=== PATIENT | female | born 1955 | race Caucasian/White ===

== ENCOUNTER 2019-07-15 09:09 | Emergency (ER) | payer OTHER ==
--- OUTSIDE RECORDS SUMMARY | 2019-07-15 09:15 | XMS REPORT ---
:1955 [facility] Address [address] [place] [address] Care Team Providers Name Role Phone WANDY PHOENIX Unavailable Unavailable PERNELL LEW Unavailable Unavailable Problems This patient has no known problems. Allergies, Adverse Reactions, Alerts This patient has no known allergies or adverse reactions. Medications This patient has no known medications. Encounters Start End Encounter Admission Attending Care Care Encounter Date/Time Date/Time Type Type Clinicians Facility Department ID 2017-10-14 2017-10-14 Outpatient [facility] [id number] 05:19:00 08:40:00 , WANDY Results Test Description Test Time Test Comments Text Results Atomic Results Result Comments BASIC METABOLIC PANEL 2017-10-14 06:46:00 Test Item Value Reference Range Comments GLUCOSE (test code=06D) 119 mg/dL 75-100 SODIUM (test code=01A) 138 mmol/L 136-145 POTASSIUM (test code=01B) 3.3 mmol/L 3.6-5.1 CHLORIDE (test code=04A) 103 mmol/L 98-107 CO2 (test code=02A) 26 mmol/L 22-32 ANION GAP (test code=ANG) 12.3 mmol/L BUN (test code=05D) 7 mg/dL 7-18 CREATININE (test code=03E) 0.8 mg/dL 0.4-1.1 BUN/CREA (test code=BCR) 9 12-20 CALCIUM (test code=09D) 9.3 mg/dL 8.3-9.5 MISCELLANEOUS LAB [id number] 07:56:00 Test Item Value Reference Range Comments SCAN RESULT (test gvhj=[id number]) BLOOD [id number] 10:00:00 Test Item Value Reference Range Comments CULTURE (BEAKER) (test fkwi=3886) No growth in 5 days BLOOD [id number] 10:00:00 Test Item Value Reference Range Comments CULTURE (BEAKER) (test wbjk=9629) No growth in 5 days SPUTUM CULTURE + GRAM [id number] 14:34:00 Test Item Value Reference Range Comments CULTURE (BEAKER) (test jvoz=1735) See comment GRAM STAIN RESULT (BEAKER) (test 4+ WBCs nyyi=3336) GRAM STAIN RESULT (BEAKER) (test 0-5 epithelial cells lhxr=330198) GRAM STAIN RESULT (BEAKER) (test No organisms seen tiee=257741) 2+ YeastNo Normal respiratory thais presentURINE [id number] 09:23:00 Test Item Value Reference Range Comments CULTURE (BEAKER) (test zlhm=6708) No growth BLOOD [id number] 17:00:00 Test Item Value Reference Range Comments CULTURE (BEAKER) (test xykj=2947) No growth in 5 days BLOOD [id number] 17:00:00 Test Item Value Reference Range Comments CULTURE (BEAKER) (test lvbl=0519) No growth in 5 days RAD, CHEST, 1 VIEW, NON [id number] 11:05:00Reason for exam:->FeverShould this be performed at the bedside?->YesFINAL REPORT Chest one view compared to August 30, 2017 Discussion: There is coarse interstitial prominence with patchy bilateral upper lung opacities overall similar to the prior study. Tracheostomy and right PICC line in place. No effusion or pneumothorax. IMPRESSIONS: No significant change [facility] Verified Date/Time: 09/02/2017 11:05:47 Reading Location: [facility] Radiology Reading Room [id number] 02:28:00 Test Item Value Reference Range Comments PHOSPHORUS (BEAKER) (test lehy=065) 3.7 mg/dL 2.3-4.7 [id number] 02:28:00 Test Item Value Reference Range Comments MAGNESIUM (BEAKER) (test bboh=261) 1.9 mg/dL 1.6-2.6 BASIC METABOLIC [id number] 02:28:00 Test Item Value Reference Range Comments SODIUM (BEAKER) (test 135 meq/L 136-145 hlik=720) POTASSIUM (BEAKER) (test 3.4 meq/L 3.5-5.1 tzow=623) CHLORIDE (BEAKER) (test 97 meq/L 98-107 zqha=292) CO2 (BEAKER) (test 26 meq/L 22-29 xeyj=568) BLOOD UREA NITROGEN 15 mg/dL 7-21 (BEAKER) (test mqga=876) CREATININE (BEAKER) (test 0.66 mg/dL 0.57-1.25 ixpk=106) GLUCOSE RANDOM (BEAKER) 104 mg/dL 70-105 (test bulw=549) CALCIUM (BEAKER) (test 8.7 mg/dL 8.4-10.2 usuv=142) EGFR (BEAKER) (test 91 mL/min/1.73 sq m ESTIMATED GFR IS NOT kgbo=9358) ACCURATE CREATININE CLEARANCE IN PREDICTING GLOMERULAR FILTRATION RATE. ESTIMATED GFR IS NOT APPLICABLE FOR DIALYSIS PATIENTS. URINALYSIS W/ [id number] 02:26:00 Test Item Value Reference Range Comments COLOR (BEAKER) (test rkef=912) Yellow CLARITY (BEAKER) (test pajh=760) Hazy SPECIFIC GRAVITY UA (BEAKER) (test 1.016 1.001-1.035 mqte=601) PH UA (BEAKER) (test zekm=971) 6.0 5.0-8.0 PROTEIN UA (BEAKER) (test mmra=980) 20 mg/dL Negative GLUCOSE UA (BEAKER) (test pwuh=259) Negative Negative KETONES UA (BEAKER) (test tmqf=047) 60 mg/dL Negative BILIRUBIN UA (BEAKER) (test Negative Negative uxjb=336) BLOOD UA (BEAKER) (test ucbm=857) Negative Negative NITRITE UA (BEAKER) (test vcni=091) Negative Negative LEUKOCYTE ESTERASE UA (BEAKER) Negative Negative (test orht=912) UROBILINOGEN UA (BEAKER) (test 0.2 mg/dL 0.2-1.0 cgfg=186) RBC UA (BEAKER) (test xome=602) 1 /HPF WBC UA (BEAKER) (test pbqr=779) 2 /HPF MUCUS (BEAKER) (test ldwi=7360) Rare SQUAMOUS EPITHELIAL (BEAKER) (test 1 /HPF ocih=460) HYALINE CASTS (BEAKER) (test 5 /LPF ghoy=919) AMORPHOUS CRYSTALS (BEAKER) (test Rare dghk=7896) SOURCE(BEAKER) (test izdo=8675) Urine, Straight Catheter BLOOD GAS, [id number] 02:16:00 Test Item Value Reference Range Comments PH ARTERIAL (BEAKER) (test cnbq=165) 7.47 7.35-7.45 PCO2 ARTERIAL (BEAKER) (test hlcf=228) 42 mmHg 35-45 PO2 ARTERIAL (BEAKER) (test ytxa=259) 266 mmHg 80-90 O2 SATURATION ARTERIAL (BEAKER) (test jifw=144) 99.7 % 96.0-97.0 HCO3 ARTERIAL (BEAKER) (test drwm=206) 29 mmol/L 21-29 BASE EXCESS ARTERIAL (BEAKER) (test apyd=559) 5.5 mmol/L -2.0-3.0 PATIENT TEMPERATURE (BEAKER) (test bgkb=2466) 38.6 C FIO2 (BEAKER) (test sbqk=2866) 40.0 % CBC W/PLT COUNT & AUTO [id number] 02:11:00 Test Item Value Reference Range Comments WHITE BLOOD CELL COUNT (BEAKER) (test sktj=926) 11.1 K/ L 3.5-10.5 RED BLOOD CELL COUNT (BEAKER) (test vlhl=216) 2.98 M/ L 3.93-5.22 HEMOGLOBIN (BEAKER) (test otif=887) 9.2 GM/DL 11.2-15.7 HEMATOCRIT (BEAKER) (test oyrb=008) 27.6 % 34.1-44.9 MEAN CORPUSCULAR VOLUME (BEAKER) (test uyjk=100) 92.6 fL 79.4-94.8 MEAN CORPUSCULAR HEMOGLOBIN (BEAKER) (test 30.9 pg 25.6-32.2 zoap=948) MEAN CORPUSCULAR HEMOGLOBIN CONC (BEAKER) (test 33.3 GM/DL 32.2-35.5 yffs=239) RED CELL DISTRIBUTION WIDTH (BEAKER) (test 13.8 % 11.7-14.4 pdmz=667) PLATELET COUNT (BEAKER) (test pmox=580) 348 K/CU MM 150-450 MEAN PLATELET VOLUME (BEAKER) (test wjxg=996) 9.9 fL 9.4-12.3 NUCLEATED RED BLOOD CELLS (BEAKER) (test 0 /100 WBC 0-0 shvk=712) NEUTROPHILS RELATIVE PERCENT (BEAKER) (test 77 % midx=234) LYMPHOCYTES RELATIVE PERCENT (BEAKER) (test 11 % pjtn=405) MONOCYTES RELATIVE PERCENT (BEAKER) (test 8 % oisu=228) EOSINOPHILS RELATIVE PERCENT (BEAKER) (test 3 % bjjf=488) BASOPHILS RELATIVE PERCENT (BEAKER) (test 0 % rvnl=586) NEUTROPHILS ABSOLUTE COUNT (BEAKER) (test 8.54 K/ L 1.56-6.13 gzha=194) LYMPHOCYTES ABSOLUTE COUNT (BEAKER) (test 1.19 K/ L 1.18-3.74 rxyz=283) MONOCYTES ABSOLUTE COUNT (BEAKER) (test 0.92 K/ L 0.24-0.36 zvpe=449) EOSINOPHILS ABSOLUTE COUNT (BEAKER) (test 0.33 K/ L 0.04-0.36 hgpm=474) BASOPHILS ABSOLUTE COUNT (BEAKER) (test 0.03 K/ L 0.01-0.08 xdin=558) IMMATURE GRANULOCYTES-RELATIVE PERCENT (BEAKER) 1 % 0-1 (test srhv=2228) MR, BRAIN, [id number] 16:32:00FINAL REPORT MRI Brain with and without contrast 09/01/2017 4:29 PM CLINICAL HISTORY: Decreased alertness, eval ischemia, WM disease TECHNIQUE: Multiplanar, multisequence MR imaging of the brain was performed, utilizing the following imaging sequences: Axial T1, T2, FLAIR, GRE, DWI/ADC; sagittal T1; postcontrast axial, sagittal, and coronal T1. COMPARISON: None available. FINDINGS: There is no acute infarct , mass, hematoma, hydrocephalus, extra-axial collection, or abnormal intracranial enhancement. 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 There are no brainstem or cerebellar lesions. Brain and corpus callosum volume are within normal limits for age. Normal appearing flow- voids are present within the major intracranial vascular structures. The sellar and pineal regions are normal. The craniovertebral junction is intact. The orbits, face, and skull base are without worrisome finding. IMPRESSION: 1. No acute intracranial abnormality.2. Mild chronic supratentorial white matter leukoencephalopathy. Signed: Tamir Truong Verified Date/Time: 09/01/2017 16:32:31 Reading Location: [facility] Radiology Reading Room MR, SPINE , CERVICAL, [id number] 16:31:00FINAL REPORT MRI of the cervical spine pre and postcontrast Comparison:None Reason for exam: C5/6 peripheral demyelination, previous radiculopathy Discussion: Sagittal andaxial multisequence MR imaging of the cervical spine was provided pre and post contrast. The study is degraded by motion even with multiple imaging attempts. While abnormalities may go undetected, gross findings are provided. The patient has undergone C6/7 level ACDF. There is no central canal or cordcompromise at any cervical level. Motion does partially obscure the cord on multiple sequences. There is however a gross assessment of the cervical cord using multiple T2-weighted sequences and multiple contrast-enhanced imaging attempts. While the most subtle foci of demyelinating disease may go undetected, the cord does have a grossly normal appearance with no convincing abnormal enhancement. Uncovertebral and facet arthrosis contribute to foraminal stenosis right greater than left C3/4, left greater than right C4/5, and probably mild bilaterally C5/6. Remaining visible foramina are patent. No concerning enhancement although again post contrast imaging is somewhat motion degraded. Normal bone marrow signal. Soft tissues are unremarkable. Impressions: There is some motion limitation but there is no convincing evidence of demyelinating disease. No central canal stenosis. Foraminal stenoses are detailed above and should be correlated with specific corresponding radiculopathy. Signed: Remington Sharp Verified Date/Time: 09/01/2017 16:31:36 Reading Location: [facility] B1 C013W Consult Reading Room URINE [id number] 10:49:00 Test Item Value Reference Range Comments CULTURE (BEAKER) (test wkmw=4004) No growth [id number] 04:02:00 Test Item Value Reference Range Comments PHOSPHORUS (BEAKER) (test fecb=680) 3.9 mg/dL 2.3-4.7 [id number] 04:02:00 Test Item Value Reference Range Comments MAGNESIUM (BEAKER) (test zllw=692) 1.9 mg/dL 1.6-2.6 BASIC METABOLIC [id number] 04:02:00 Test Item Value Reference Range Comments SODIUM (BEAKER) (test 141 meq/L 136-145 vtqs=866) POTASSIUM (BEAKER) (test 3.6 meq/L 3.5-5.1 ktck=324) CHLORIDE (BEAKER) (test 103 meq/L 98-107 szer=520) CO2 (BEAKER) (test 26 meq/L 22-29 adug=160) BLOOD UREA NITROGEN 16 mg/dL 7-21 (BEAKER) (test itjm=192) CREATININE (BEAKER) (test 0.61 mg/dL 0.57-1.25 nmtq=543) GLUCOSE RANDOM (BEAKER) 100 mg/dL 70-105 (test cvgz=655) CALCIUM (BEAKER) (test 8.4 mg/dL 8.4-10.2 xrgh=269) EGFR (BEAKER) (test 99 mL/min/1.73 sq m ESTIMATED GFR IS NOT ieqm=4904) ACCURATE CREATININE CLEARANCE IN PREDICTING GLOMERULAR FILTRATION RATE. ESTIMATED GFR IS NOT APPLICABLE FOR DIALYSIS PATIENTS. CBC W/PLT COUNT & AUTO [id number] 04:01:00 Test Item Value Reference Range Comments WHITE BLOOD CELL COUNT (BEAKER) (test tqcl=767) 11.7 K/ L 3.5-10.5 RED BLOOD CELL COUNT (BEAKER) (test lgxd=845) 2.85 M/ L 3.93-5.22 HEMOGLOBIN (BEAKER) (test xgzo=494) 8.4 GM/DL 11.2-15.7 HEMATOCRIT (BEAKER) (test pgnb=082) 26.2 % 34.1-44.9 MEAN CORPUSCULAR VOLUME (BEAKER) (test cpgm=269) 91.9 fL 79.4-94.8 MEAN CORPUSCULAR HEMOGLOBIN (BEAKER) (test 29.5 pg 25.6-32.2 deun=180) MEAN CORPUSCULAR HEMOGLOBIN CONC (BEAKER) (test 32.1 GM/DL 32.2-35.5 uynq=660) RED CELL DISTRIBUTION WIDTH (BEAKER) (test 14.1 % 11.7-14.4 dnpp=089) PLATELET COUNT (BEAKER) (test uhvg=765) 334 K/CU MM 150-450 MEAN PLATELET VOLUME (BEAKER) (test kupq=616) 10.6 fL 9.4-12.3 NUCLEATED RED BLOOD CELLS (BEAKER) (test 0 /100 WBC 0-0 ghib=298) NEUTROPHILS RELATIVE PERCENT (BEAKER) (test 77 % asni=246) LYMPHOCYTES RELATIVE PERCENT (BEAKER) (test 11 % vqsh=928) MONOCYTES RELATIVE PERCENT (BEAKER) (test 8 % zbqi=346) EOSINOPHILS RELATIVE PERCENT (BEAKER) (test 3 % nmkh=721) BASOPHILS RELATIVE PERCENT (BEAKER) (test 0 % lgjg=375) NEUTROPHILS ABSOLUTE COUNT (BEAKER) (test 8.99 K/ L 1.56-6.13 kzou=267) LYMPHOCYTES ABSOLUTE COUNT (BEAKER) (test 1.33 K/ L 1.18-3.74 nart=982) MONOCYTES ABSOLUTE COUNT (BEAKER) (test 0.96 K/ L 0.24-0.36 tycx=594) EOSINOPHILS ABSOLUTE COUNT (BEAKER) (test 0.29 K/ L 0.04-0.36 efzc=882) BASOPHILS ABSOLUTE COUNT (BEAKER) (test 0.04 K/ L 0.01-0.08 jbcs=062) IMMATURE GRANULOCYTES-RELATIVE PERCENT (BEAKER) 1 % 0-1 (test pzgy=1871) BLOOD [id number] 17:00:00 Test Item Value Reference Range Comments CULTURE (BEAKER) (test tfhz=1145) No growth in 5 days BLOOD [id number] 17:00:00 Test Item Value Reference Range Comments CULTURE (BEAKER) (test pcsj=5842) No growth in 5 days URINE PROTEIN ELECTROPHORESIS, [id number] 14:35:00 Test Item Value Reference Range Comments PROTEIN, URINE (BEAKER) (test 15 mg/dL 0-14 yrmu=3597) ALBUMIN URINE ELP (BEAKER) 20.8 % (test ueob=9518) GAMMA GLOBULIN URINE (BEAKER) 79.2 % (test ynvg=2508) UPEP, ID-438 (BEAKER) (test No monoclonal bands detected. cdff=0414) [id number] (BEAKER) Paola Hart MD (test qbrd=0601) (electronic signature) [id number] 12:35:00 Test Item Value Reference Range Comments POTASSIUM (BEAKER) (test zejv=017) 4.1 meq/L 3.5-5.1 [id number] 12:35:00 Test Item Value Reference Range Comments MAGNESIUM (BEAKER) (test tzik=990) 2.3 mg/dL 1.6-2.6 SPUTUM CULTURE + GRAM [id number] 08:50:00 Test Item Value Reference Range Comments CULTURE (BEAKER) (test 3+ Normal respiratory thais fivg=0753) present GRAM STAIN RESULT (BEAKER) 3+ WBCs (test xerb=0287) GRAM STAIN RESULT (BEAKER) 5-10 epithelial cells (test swkl=52016) GRAM STAIN RESULT (BEAKER) No organisms seen (test lxex=22706) [id number] 04:32:00 Test Item Value Reference Range Comments PHOSPHORUS (BEAKER) (test dmzc=584) 3.7 mg/dL 2.3-4.7 [id number] 04:32:00 Test Item Value Reference Range Comments MAGNESIUM (BEAKER) (test zxhu=678) 2.2 mg/dL 1.6-2.6 BASIC METABOLIC [id number] 04:32:00 Test Item Value Reference Range Comments SODIUM (BEAKER) (test 145 meq/L 136-145 mfvb=528) POTASSIUM (BEAKER) (test 3.8 meq/L 3.5-5.1 fktt=597) CHLORIDE (BEAKER) (test 109 meq/L 98-107 cbap=199) CO2 (BEAKER) (test 27 meq/L 22-29 jtbt=913) BLOOD UREA NITROGEN 17 mg/dL 7-21 (BEAKER) (test txue=497) CREATININE (BEAKER) (test 0.61 mg/dL 0.57-1.25 xvoe=572) GLUCOSE RANDOM (BEAKER) 117 mg/dL 70-105 (test ouyp=944) CALCIUM (BEAKER) (test 8.3 mg/dL 8.4-10.2 dykc=602) EGFR (BEAKER) (test 99 mL/min/1.73 sq m ESTIMATED GFR IS NOT udjj=6277) ACCURATE CREATININE CLEARANCE IN PREDICTING GLOMERULAR FILTRATION RATE. ESTIMATED GFR IS NOT APPLICABLE FOR DIALYSIS PATIENTS. CBC W/PLT COUNT & AUTO [id number] 04:01:00 Test Item Value Reference Range Comments WHITE BLOOD CELL COUNT (BEAKER) (test mkql=714) 12.1 K/ L 3.5-10.5 RED BLOOD CELL COUNT (BEAKER) (test nvun=581) 2.70 M/ L 3.93-5.22 HEMOGLOBIN (BEAKER) (test urzr=372) 8.1 GM/DL 11.2-15.7 HEMATOCRIT (BEAKER) (test rvjw=353) 25.5 % 34.1-44.9 MEAN CORPUSCULAR VOLUME (BEAKER) (test cxtz=408) 94.4 fL 79.4-94.8 MEAN CORPUSCULAR HEMOGLOBIN (BEAKER) (test 30.0 pg 25.6-32.2 sewl=576) MEAN CORPUSCULAR HEMOGLOBIN CONC (BEAKER) (test 31.8 GM/DL 32.2-35.5 kxoc=254) RED CELL DISTRIBUTION WIDTH (BEAKER) (test 14.6 % 11.7-14.4 arar=877) PLATELET COUNT (BEAKER) (test fwpz=688) 288 K/CU MM 150-450 MEAN PLATELET VOLUME (BEAKER) (test jptu=299) 10.7 fL 9.4-12.3 NUCLEATED RED BLOOD CELLS (BEAKER) (test 0 /100 WBC 0-0 krqo=433) NEUTROPHILS RELATIVE PERCENT (BEAKER) (test 76 % qtvy=031) LYMPHOCYTES RELATIVE PERCENT (BEAKER) (test 12 % xexb=459) MONOCYTES RELATIVE PERCENT (BEAKER) (test 9 % nnwi=381) EOSINOPHILS RELATIVE PERCENT (BEAKER) (test 2 % prmk=328) BASOPHILS RELATIVE PERCENT (BEAKER) (test 0 % udxb=970) NEUTROPHILS ABSOLUTE COUNT (BEAKER) (test 9.21 K/ L 1.56-6.13 fnqm=274) LYMPHOCYTES ABSOLUTE COUNT (BEAKER) (test 1.39 K/ L 1.18-3.74 sjnr=850) MONOCYTES ABSOLUTE COUNT (BEAKER) (test 1.14 K/ L 0.24-0.36 utbh=577) EOSINOPHILS ABSOLUTE COUNT (BEAKER) (test 0.27 K/ L 0.04-0.36 gtdo=719) BASOPHILS ABSOLUTE COUNT (BEAKER) (test 0.04 K/ L 0.01-0.08 nwmc=375) IMMATURE GRANULOCYTES-RELATIVE PERCENT (BEAKER) 1 % 0-1 (test aodh=7881) [id number] 16:42:00 Test Item Value Reference Range Comments POTASSIUM (BEAKER) (test hlhd=703) 4.2 meq/L 3.5-5.1 RAD, HIP, 2 VIEWS, [id number] 15:50:00Reason for exam:->right hip pain s /p fallFINAL REPORT COMPARISON: None TECHNIQUE: 2 views of the right hip. FINDINGS: There are no acute fractures or dislocations. No radiopaque foreign bodies. Joint spaces are maintained. No lytic or blastic lesions.. IMPRESSION: No acute bony abnormality. Signed: Naveen Jorge Verified Date/Time: 08/30/2017 15:50:19 Reading Location: [address] Transitional Reading Room [id number] 13:52:00 Test Item Value Reference Range Comments POTASSIUM (BEAKER) (test cqys=766) 3.4 meq/L 3.5-5.1 RAD, CHEST, 1 VIEW, NON [id number] 07:45:00Reason for exam:-> intubatedShould this be performed at the bedside?->YesFINAL REPORT Chest, one view. HISTORY: Intubated COMPARISON: 08/29/2017 IMPRESSION: Unchanged scattered bilateral interstitial opacities. Tracheostomy , feeding catheter, and right-sided PICC unchanged in position. Cardiomediastinal silhouette is unremarkable. No identifiable pneumothorax or pleural effusion. Signed: Fracisco Gray Verified Date/Time: 08/30/2017 07:45:44Reading Location: [address] Body Reading Room CBC W/PLT COUNT & AUTO [id number] 06:30:00 Test Item Value Reference Range Comments WHITE BLOOD CELL COUNT (BEAKER) (test lhtj=044) 14.7 K/ L 3.5-10.5 RED BLOOD CELL COUNT (BEAKER) (test eokm=309) 2.97 M/ L 3.93-5.22 HEMOGLOBIN (BEAKER) (test jesb=847) 8.6 GM/DL 11.2-15.7 HEMATOCRIT (BEAKER) (test wwve=681) 28.2 % 34.1-44.9 MEAN CORPUSCULAR VOLUME (BEAKER) (test clat=608) 94.9 fL 79.4-94.8 MEAN CORPUSCULAR HEMOGLOBIN (BEAKER) (test 29.0 pg 25.6-32.2 vcvo=741) MEAN CORPUSCULAR HEMOGLOBIN CONC (BEAKER) (test 30.5 GM/DL 32.2-35.5 nozu=112) RED CELL DISTRIBUTION WIDTH (BEAKER) (test 14.7 % 11.7-14.4 ywbo=678) PLATELET COUNT (BEAKER) (test wkor=193) 331 K/CU MM 150-450 MEAN PLATELET VOLUME (BEAKER) (test hudm=337) 10.3 fL 9.4-12.3 NUCLEATED RED BLOOD CELLS (BEAKER) (test 0 /100 WBC 0-0 uowm=901) NEUTROPHILS RELATIVE PERCENT (BEAKER) (test 75 % dbgf=032) LYMPHOCYTES RELATIVE PERCENT (BEAKER) (test 10 % mnlf=222) MONOCYTES RELATIVE PERCENT (BEAKER) (test 10 % aqgb=670) EOSINOPHILS RELATIVE PERCENT (BEAKER) (test 3 % rfni=001) BASOPHILS RELATIVE PERCENT (BEAKER) (test 0 % hhpn=290) NEUTROPHILS ABSOLUTE COUNT (BEAKER) (test 11.05 K/ L 1.56-6.13 qjpw=463) LYMPHOCYTES ABSOLUTE COUNT (BEAKER) (test 1.52 K/ L 1.18-3.74 wxwu=891) MONOCYTES ABSOLUTE COUNT (BEAKER) (test 1.45 K/ L 0.24-0.36 nojt=082) EOSINOPHILS ABSOLUTE COUNT (BEAKER) (test 0.39 K/ L 0.04-0.36 cuxz=636) BASOPHILS ABSOLUTE COUNT (BEAKER) (test 0.05 K/ L 0.01-0.08 kcub=100) IMMATURE GRANULOCYTES-RELATIVE PERCENT (BEAKER) 2 % 0-1 (test iziw=0956) [id number] 05:53:00 Test Item Value Reference Range Comments POTASSIUM (BEAKER) (test uwdg=731) 3.7 meq/L 3.5-5.1 [id number] 05:53:00 Test Item Value Reference Range Comments MAGNESIUM (BEAKER) (test akwh=704) 1.9 mg/dL 1.6-2.6 [id number] 05:53:00 Test Item Value Reference Range Comments PHOSPHORUS (BEAKER) (test gumq=071) 3.2 mg/dL 2.3-4.7 BASIC METABOLIC [id number] 05:53:00 Test Item Value Reference Range Comments SODIUM (BEAKER) (test 151 meq/L 136-145 qlru=041) POTASSIUM (BEAKER) (test 3.7 meq/L 3.5-5.1 zamj=210) CHLORIDE (BEAKER) (test 115 meq/L 98-107 boej=621) CO2 (BEAKER) (test 27 meq/L 22-29 tugj=338) BLOOD UREA NITROGEN 16 mg/dL 7-21 (BEAKER) (test wseg=183) CREATININE (BEAKER) (test 0.58 mg/dL 0.57-1.25 khoq=558) GLUCOSE RANDOM (BEAKER) 137 mg/dL 70-105 (test itur=772) CALCIUM (BEAKER) (test 8.7 mg/dL 8.4-10.2 vhjm=276) EGFR (BEAKER) (test 105 mL/min/1.73 sq m ESTIMATED GFR IS NOT vmpy=2557) ACCURATE CREATININE CLEARANCE IN PREDICTING GLOMERULAR FILTRATION RATE. ESTIMATED GFR IS NOT APPLICABLE FOR DIALYSIS PATIENTS. [id number] 10:39:00 Test Item Value Reference Range Comments POTASSIUM (BEAKER) (test sotm=542) 3.9 meq/L 3.5-5.1 RAD, CHEST, 1 VIEW, NON [id number] 08:43:00Reason for exam:-> intubatedShould this be performed at the bedside?->YesFINAL REPORT Comparison: 08/28/2017 TECHNIQUE: Single view of the chest FINDINGS: Bilateral interstitial and airspace opacities are stable. No gross new lung parenchymal changes. Support lines and tubes are stable. IMPRESSION:. No significant interval change. Signed: Edgar Jorge Verified Date/Time: 08/29/2017 08:43:22 Reading Location: [place] [id number] CT Body Reading Room CBC W/PLT COUNT & AUTO [id number] 05:48:00 Test Item Value Reference Range Comments WHITE BLOOD CELL COUNT (BEAKER) (test suzt=702) 13.7 K/ L 3.5-10.5 RED BLOOD CELL COUNT (BEAKER) (test npbg=446) 2.78 M/ L 3.93-5.22 HEMOGLOBIN (BEAKER) (test tdvh=625) 8.2 GM/DL 11.2-15.7 HEMATOCRIT (BEAKER) (test gzdx=510) 26.5 % 34.1-44.9 MEAN CORPUSCULAR VOLUME (BEAKER) (test hbwb=101) 95.3 fL 79.4-94.8 MEAN CORPUSCULAR HEMOGLOBIN (BEAKER) (test 29.5 pg 25.6-32.2 flmk=954) MEAN CORPUSCULAR HEMOGLOBIN CONC (BEAKER) (test 30.9 GM/DL 32.2-35.5 ldva=559) RED CELL DISTRIBUTION WIDTH (BEAKER) (test 14.2 % 11.7-14.4 hqbk=535) PLATELET COUNT (BEAKER) (test szuf=715) 262 K/CU MM 150-450 MEAN PLATELET VOLUME (BEAKER) (test pkso=497) 10.2 fL 9.4-12.3 NUCLEATED RED BLOOD CELLS (BEAKER) (test 0 /100 WBC 0-0 xwzt=768) NEUTROPHILS RELATIVE PERCENT (BEAKER) (test 76 % pzhs=054) LYMPHOCYTES RELATIVE PERCENT (BEAKER) (test 12 % ngnp=644) MONOCYTES RELATIVE PERCENT (BEAKER) (test 8 % ebli=828) EOSINOPHILS RELATIVE PERCENT (BEAKER) (test 2 % bbyn=873) BASOPHILS RELATIVE PERCENT (BEAKER) (test 0 % mfzt=122) NEUTROPHILS ABSOLUTE COUNT (BEAKER) (test 10.42 K/ L 1.56-6.13 vfpe=128) LYMPHOCYTES ABSOLUTE COUNT (BEAKER) (test 1.59 K/ L 1.18-3.74 fedy=255) MONOCYTES ABSOLUTE COUNT (BEAKER) (test 1.15 K/ L 0.24-0.36 gcwg=263) EOSINOPHILS ABSOLUTE COUNT (BEAKER) (test 0.24 K/ L 0.04-0.36 mvwp=452) BASOPHILS ABSOLUTE COUNT (BEAKER) (test 0.02 K/ L 0.01-0.08 gttg=312) IMMATURE GRANULOCYTES-RELATIVE PERCENT (BEAKER) 2 % 0-1 (test plvu=6866) BASIC METABOLIC [id number] 05:33:00 Test Item Value Reference Range Comments SODIUM (BEAKER) (test 153 meq/L 136-145 uhth=376) POTASSIUM (BEAKER) (test 3.8 meq/L 3.5-5.1 nokm=421) CHLORIDE (BEAKER) (test 120 meq/L 98-107 lwsd=622) CO2 (BEAKER) (test 26 meq/L 22-29 qtnp=587) BLOOD UREA NITROGEN 17 mg/dL 7-21 (BEAKER) (test tfxv=359) CREATININE (BEAKER) (test 0.58 mg/dL 0.57-1.25 hclk=607) GLUCOSE RANDOM (BEAKER) 156 mg/dL 70-105 (test owch=840) CALCIUM (BEAKER) (test 8.3 mg/dL 8.4-10.2 piph=071) EGFR (BEAKER) (test 105 mL/min/1.73 sq m ESTIMATED GFR IS NOT zzoc=4439) ACCURATE CREATININE CLEARANCE IN PREDICTING GLOMERULAR FILTRATION RATE. ESTIMATED GFR IS NOT APPLICABLE FOR DIALYSIS PATIENTS. [id number] 05:32:00 Test Item Value Reference Range Comments PHOSPHORUS (BEAKER) (test omin=927) 2.3 mg/dL 2.3-4.7 [id number] 05:32:00 Test Item Value Reference Range Comments MAGNESIUM (BEAKER) (test gnmw=758) 2.0 mg/dL 1.6-2.6 [id number] 00:50:00 Test Item Value Reference Range Comments POTASSIUM (BEAKER) (test yecm=894) 3.8 meq/L 3.5-5.1 [id number] 00:50:00 Test Item Value Reference Range Comments SODIUM (BEAKER) (test gubn=920) 149 meq/L 136-145 [id number] 19:17:00 Test Item Value Reference Range Comments POTASSIUM (BEAKER) (test vchx=269) 3.4 meq/L 3.5-5.1 [id number] 19:17:00 Test Item Value Reference Range Comments SODIUM (BEAKER) (test ukjo=697) 143 meq/L 136-145 [id number] 15:23:00 Test Item Value Reference Range Comments POTASSIUM (BEAKER) (test xnoo=775) 3.9 meq/L 3.5-5.1 [id number] 15:23:00 Test Item Value Reference Range Comments SODIUM (BEAKER) (test binf=136) 143 meq/L 136-145 PROTEIN ELECTROPHORESIS, [id number] 14:05:00 Test Item Value Reference Range Comments ALBUMIN FRACTION (BEAKER) 2.1 g/dL 3.5-5.5 (test jpfw=256) ALPHA 1 FRACTION (BEAKER) 0.5 g/dL 0.2-0.4 (test pyaz=469) ALPHA 2 FRACTION (BEAKER) 1.1 g/dL 0.5-0.9 (test rofn=598) BETA FRACTION (BEAKER) (test 1.0 g/dL 0.6-1.1 jdai=094) GAMMA GLOBULIN FRACTION 0.7 g/dL 0.7-1.7 (BEAKER) (test jbal=409) INTERPRETATION-119 (BEAKER) Pattern consistent with acute (test spzg=9092) inflammatory process. No monoclonal bands detected. [id number] Paola Hart MD (BEAKER) (test xffv=2749) (electronic signature) PROTEIN TOTAL SERUM, SPEP 5.3 gm/dL 6.0-8.3 (BEAKER) (test rcmz=6569) CSF CULTURE + GRAM [id number] 12:34:00 Test Item Value Reference Range Comments CULTURE (BEAKER) (test wjlq=0061) No growth GRAM STAIN RESULT (BEAKER) (test <1+ WBCs xffk=7389) GRAM STAIN RESULT (BEAKER) (test No organisms seen phez=14150) URINE [id number] 11:40:00 Test Item Value Reference Range Comments CULTURE (BEAKER) (test >100,000 col/mL Lesly albicans htja=5916) SPUTUM CULTURE + GRAM [id number] 09:07:00 Test Item Value Reference Range Comments CULTURE (BEAKER) (test ifxa=6204) See comment GRAM STAIN RESULT (BEAKER) (test 1+ WBCs lmnn=1107) GRAM STAIN RESULT (BEAKER) (test No organisms seen botm=[id number]) GRAM STAIN RESULT (BEAKER) (test 0-5 epithelial cells fxpd=030027) <1+ YeastNo Normal respiratory thais presentRAD, CHEST, 1 VIEW, NON [id number] 07:39:00Reason for exam:->intubatedShould this be performed at the bedside?->YesFINAL REPORT Chest one view AP 08/28/2017 7 :38 AM CLINICAL INDICATION: intubated COMPARISON: 08/27/2017 IMPRESSION: The endotracheal tube has been replaced with a tracheostomy. Remaining support hardware is unchanged in position. Cardiomediastinal contours are stable. The central pulmonary vasculature is not engorged. Symmetric coarse bilateral pulmonary opacities are unchanged. Signed: Tamir Truong Verified Date/Time: 08/28/2017 07:39:17 Reading Location: [facility] Radiology Reading Room BLOOD GAS, [id number] 06:19:00 Test Item Value Reference Range Comments PH ARTERIAL (BEAKER) (test lcil=712) 7.42 7.35-7.45 PCO2 ARTERIAL (BEAKER) (test mrwn=987) 44 mmHg 35-45 PO2 ARTERIAL (BEAKER) (test mdya=657) 143 mmHg 80-90 O2 SATURATION ARTERIAL (BEAKER) (test woqz=088) 98.8 % 96.0-97.0 HCO3 ARTERIAL (BEAKER) (test esjw=671) 28 mmol/L 21-29 BASE EXCESS ARTERIAL (BEAKER) (test qays=900) 3.3 mmol/L -2.0-3.0 PATIENT TEMPERATURE (BEAKER) (test kwtd=3269) 37.8 C FIO2 (BEAKER) (test nnzw=2701) 40.0 % CBC W/PLT COUNT & AUTO [id number] 05:58:00 Test Item Value Reference Range Comments WHITE BLOOD CELL COUNT (BEAKER) (test gysc=708) 13.5 K/ L 3.5-10.5 RED BLOOD CELL COUNT (BEAKER) (test ksza=751) 3.15 M/ L 3.93-5.22 HEMOGLOBIN (BEAKER) (test wohi=554) 9.3 GM/DL 11.2-15.7 HEMATOCRIT (BEAKER) (test kyku=931) 29.2 % 34.1-44.9 MEAN CORPUSCULAR VOLUME (BEAKER) (test cqen=325) 92.7 fL 79.4-94.8 MEAN CORPUSCULAR HEMOGLOBIN (BEAKER) (test 29.5 pg 25.6-32.2 ocdt=946) MEAN CORPUSCULAR HEMOGLOBIN CONC (BEAKER) (test 31.8 GM/DL 32.2-35.5 hsps=709) RED CELL DISTRIBUTION WIDTH (BEAKER) (test 14.3 % 11.7-14.4 mzcj=510) PLATELET COUNT (BEAKER) (test ldgs=655) 248 K/CU MM 150-450 MEAN PLATELET VOLUME (BEAKER) (test awre=439) 11.0 fL 9.4-12.3 NUCLEATED RED BLOOD CELLS (BEAKER) (test 0 /100 WBC 0-0 ljze=409) NEUTROPHILS RELATIVE PERCENT (BEAKER) (test 78 % ayvd=314) LYMPHOCYTES RELATIVE PERCENT (BEAKER) (test 10 % bnmh=228) MONOCYTES RELATIVE PERCENT (BEAKER) (test 8 % spmg=643) EOSINOPHILS RELATIVE PERCENT (BEAKER) (test 2 % ywjj=914) BASOPHILS RELATIVE PERCENT (BEAKER) (test 0 % nayb=791) NEUTROPHILS ABSOLUTE COUNT (BEAKER) (test 10.54 K/ L 1.56-6.13 shoa=978) LYMPHOCYTES ABSOLUTE COUNT (BEAKER) (test 1.31 K/ L 1.18-3.74 gyil=955) MONOCYTES ABSOLUTE COUNT (BEAKER) (test 1.03 K/ L 0.24-0.36 sjkp=448) EOSINOPHILS ABSOLUTE COUNT (BEAKER) (test 0.26 K/ L 0.04-0.36 ihzt=409) BASOPHILS ABSOLUTE COUNT (BEAKER) (test 0.04 K/ L 0.01-0.08 nfka=157) IMMATURE GRANULOCYTES-RELATIVE PERCENT (BEAKER) 2 % 0-1 (test ohnb=4114) [id number] 05:50:00 Test Item Value Reference Range Comments PHOSPHORUS (BEAKER) (test fjbp=896) 3.1 mg/dL 2.3-4.7 [id number] 05:50:00 Test Item Value Reference Range Comments MAGNESIUM (BEAKER) (test ubqv=965) 2.0 mg/dL 1.6-2.6 BASIC METABOLIC [id number] 05:50:00 Test Item Value Reference Range Comments SODIUM (BEAKER) (test 140 meq/L 136-145 czql=807) POTASSIUM (BEAKER) (test 4.1 meq/L 3.5-5.1 oqmu=006) CHLORIDE (BEAKER) (test 107 meq/L 98-107 xgxw=991) CO2 (BEAKER) (test 25 meq/L 22-29 gnti=681) BLOOD UREA NITROGEN 17 mg/dL 7-21 (BEAKER) (test kdfd=752) CREATININE (BEAKER) (test 0.57 mg/dL 0.57-1.25 ijvb=850) GLUCOSE RANDOM (BEAKER) 123 mg/dL 70-105 (test mztm=450) CALCIUM (BEAKER) (test 8.4 mg/dL 8.4-10.2 ifnx=050) EGFR (BEAKER) (test 107 mL/min/1.73 sq m ESTIMATED GFR IS NOT iyct=7825) ACCURATE CREATININE CLEARANCE IN PREDICTING GLOMERULAR FILTRATION RATE. ESTIMATED GFR IS NOT APPLICABLE FOR DIALYSIS PATIENTS. BLOOD [id number] 05:01:00 Test Item Value Reference Range Comments CULTURE (BEAKER) (test jujy=2724) No growth in 5 days BLOOD [id number] 23:00:00 Test Item Value Reference Range Comments CULTURE (BEAKER) (test pzco=5413) No growth in 5 days [id number] 22:09:00 Test Item Value Reference Range Comments POTASSIUM (BEAKER) (test ycie=584) 3.9 meq/L 3.5-5.1 [id number] 22:09:00 Test Item Value Reference Range Comments SODIUM (BEAKER) (test jsur=410) 139 meq/L 136-145 [id number] 16:37:00 Test Item Value Reference Range Comments SODIUM (BEAKER) (test hwsh=747) 139 meq/L 136-145 [id number] 12:42:00 Test Item Value Reference Range Comments POTASSIUM (BEAKER) (test uinw=508) 3.7 meq/L 3.5-5.1 CARDIOLIPIN ANTIBODIES, IGG AND [id number] 11:00:00 Test Item Value Reference Range Comments ANTICARDIOLIPIN IGG ANTIBODY (BEAKER) (test < GPL rjpi=716) ANTICARDIOLIPIN IGM ANTIBODY (BEAKER) (test 0.2 MPL thmq=954) Anticardiolipin IgG Result Interpretation:NEG: <20 GPL; U/mlPOS: >/=20 GPL; U/mlAnticardiolipin IgM Result Interpretation:NEG: <20 MPL; U/mlPOS: >/=20 MPL; U/mlDOUBLE-STRANDED DNA (DSDNA) [id number] 08:14:00 Test Item Value Reference Range Comments ANTI-DNA DS (BEAKER) (test fxws=6091) Negative ANTI-NUCLEAR ANTIBODY ([place])2017-08-27 08:13:00 Test Item Value Reference Range Comments ANTI-NUCLEAR ANTIBODY ([place]) (BEAKER) (test Negative Negative pqpd=069) RAD, CHEST, 1 VIEW, NON [id number] 07:41:00Reason for exam:-> intubatedShould this be performed at the bedside?->YesFINAL REPORT Chest one view AP 08/27/2017 7:41 AM CLINICAL INDICATION: intubated COMPARISON: 08/26/2017 IMPRESSION: Support hardware is unchanged in position. Cardiomediastinal contours are stable. There is central pulmonary vasculature congestion with mild peripheral edema. Superimposed patchy opacities in both upper lungs are unchanged. Signed: Tamir Truong Verified Date/Time: 08/27/2017 07:41:23 Reading Location: [facility] Radiology Reading Room [id number] 05:19:00 Test Item Value Reference Range Comments MAGNESIUM (BEAKER) (test 2.3 mg/dL 1.6-2.6 Specimen slightly hemolyzed efxr=295) [id number] 05:19:00 Test Item Value Reference Range Comments PHOSPHORUS (BEAKER) (test 3.2 mg/dL 2.3-4.7 Specimen slightly hemolyzed gbkw=631) BASIC METABOLIC [id number] 05:19:00 Test Item Value Reference Range Comments SODIUM (BEAKER) (test 130 meq/L 136-145 kpuf=806) POTASSIUM (BEAKER) (test 4.0 meq/L 3.5-5.1 Specimen slightly hfna=716) hemolyzed CHLORIDE (BEAKER) (test 94 meq/L 98-107 ijwl=104) CO2 (BEAKER) (test 26 meq/L 22-29 rkxz=910) BLOOD UREA NITROGEN 18 mg/dL 7-21 (BEAKER) (test ebqx=167) CREATININE (BEAKER) (test 0.58 mg/dL 0.57-1.25 Specimen slightly bztx=109) hemolyzed GLUCOSE RANDOM (BEAKER) 111 mg/dL 70-105 (test ffuz=048) CALCIUM (BEAKER) (test 8.7 mg/dL 8.4-10.2 kpxh=251) EGFR (BEAKER) (test 105 mL/min/1.73 sq m ESTIMATED GFR IS NOT rzmn=1702) ACCURATE CREATININE CLEARANCE IN PREDICTING GLOMERULAR FILTRATION RATE. ESTIMATED GFR IS NOT APPLICABLE FOR DIALYSIS PATIENTS. CBC W/PLT COUNT & AUTO [id number] 05:05:00 Test Item Value Reference Range Comments WHITE BLOOD CELL COUNT (BEAKER) (test yhjv=448) 13.3 K/ L 3.5-10.5 RED BLOOD CELL COUNT (BEAKER) (test iabz=685) 3.36 M/ L 3.93-5.22 HEMOGLOBIN (BEAKER) (test iqgh=312) 10.3 GM/DL 11.2-15.7 HEMATOCRIT (BEAKER) (test fkvb=965) 30.6 % 34.1-44.9 MEAN CORPUSCULAR VOLUME (BEAKER) (test uzzj=188) 91.1 fL 79.4-94.8 MEAN CORPUSCULAR HEMOGLOBIN (BEAKER) (test 30.7 pg 25.6-32.2 jsne=873) MEAN CORPUSCULAR HEMOGLOBIN CONC (BEAKER) (test 33.7 GM/DL 32.2-35.5 nyjx=019) RED CELL DISTRIBUTION WIDTH (BEAKER) (test 13.9 % 11.7-14.4 jcxz=619) PLATELET COUNT (BEAKER) (test pewg=285) 230 K/CU MM 150-450 MEAN PLATELET VOLUME (BEAKER) (test pnlc=925) 11.6 fL 9.4-12.3 NUCLEATED RED BLOOD CELLS (BEAKER) (test 0 /100 WBC 0-0 prsu=744) NEUTROPHILS RELATIVE PERCENT (BEAKER) (test 74 % nzxo=656) LYMPHOCYTES RELATIVE PERCENT (BEAKER) (test 13 % wrml=648) MONOCYTES RELATIVE PERCENT (BEAKER) (test 8 % cemg=834) EOSINOPHILS RELATIVE PERCENT (BEAKER) (test 1 % jxsq=202) BASOPHILS RELATIVE PERCENT (BEAKER) (test 0 % fwpl=318) NEUTROPHILS ABSOLUTE COUNT (BEAKER) (test 9.79 K/ L 1.56-6.13 mbtc=718) LYMPHOCYTES ABSOLUTE COUNT (BEAKER) (test 1.72 K/ L 1.18-3.74 gnqm=044) MONOCYTES ABSOLUTE COUNT (BEAKER) (test 1.01 K/ L 0.24-0.36 rbjp=407) EOSINOPHILS ABSOLUTE COUNT (BEAKER) (test 0.19 K/ L 0.04-0.36 rltq=541) BASOPHILS ABSOLUTE COUNT (BEAKER) (test 0.03 K/ L 0.01-0.08 qleo=905) IMMATURE GRANULOCYTES-RELATIVE PERCENT (BEAKER) 4 % 0-1 (test spnd=6897) BLOOD GAS, [id number] 04:44:00 Test Item Value Reference Range Comments PH ARTERIAL (BEAKER) (test zdmh=432) 7.52 7.35-7.45 PCO2 ARTERIAL (BEAKER) (test pgbt=251) 41 mmHg 35-45 PO2 ARTERIAL (BEAKER) (test tirj=667) 124 mmHg 80-90 O2 SATURATION ARTERIAL (BEAKER) (test juiq=129) 98.7 % 96.0-97.0 HCO3 ARTERIAL (BEAKER) (test phgo=926) 32 mmol/L 21-29 BASE EXCESS ARTERIAL (BEAKER) (test puzk=604) 8.7 mmol/L -2.0-3.0 PATIENT TEMPERATURE (BEAKER) (test pajw=2791) 37.1 C FIO2 (BEAKER) (test kupb=2309) 40.0 % HEPATITIS C PCR, [id number] 15:25:00 Test Item Value Reference Range Comments HCV RESULT COMPONENT (BEAKER) HCV RNA not detected HCV RNA not detected (test ueqq=8392) This test uses a Real-Time Polymerase Chain Reaction (RT-PCR) methodology and was performed using SOFIA Ampliprep/SOFIA TaqMan HCV test kit version 2.0 ( [employer]).Reportable range for this assay is 15 - 100,000, 000 IU per mL (1.18 - 8.00 Log IU/mL).HEPATITIS B PCR, [id number] 13 :41:00 Test Item Value Reference Range Comments HBV RESULT COMPONENT (BEAKER) HBV DNA not detected HBV DNA not detected (test pgtf=6468) This test uses a Real-Time Polymerase Chain Reaction (RT-PCR) methodology and was performed using SOFIA AmpliPrep/SOFIA TaqMan HBV Test, v2.0 ([employer]Reportable range for this assay is 20 - 170,000,000 IU per mL (1.30 - 8.23 Log IU/mL).HEMOGLOBIN [id number] 13:34:00 Test Item Value Reference Range Comments HEMOGLOBIN A1C (BEAKER) (test xhxe=980) 5.6 % 4.3-6.1 URINALYSIS W/ [id number] 10:57:00 Test Item Value Reference Range Comments COLOR (BEAKER) (test rchm=981) Yellow CLARITY (BEAKER) (test ngkt=341) Hazy SPECIFIC GRAVITY UA (BEAKER) (test fljk=402) 1.025 1.001-1.035 PH UA (BEAKER) (test frzc=338) 6.0 5.0-8.0 PROTEIN UA (BEAKER) (test hfrl=126) 50 mg/dL Negative GLUCOSE UA (BEAKER) (test zekb=940) Negative Negative KETONES UA (BEAKER) (test meca=317) Negative Negative BILIRUBIN UA (BEAKER) (test bgch=394) Negative Negative BLOOD UA (BEAKER) (test hwqt=783) Negative Negative NITRITE UA (BEAKER) (test hnwr=470) Negative Negative LEUKOCYTE ESTERASE UA (BEAKER) (test vigy=101) Large Negative UROBILINOGEN UA (BEAKER) (test nwer=168) 0.2 mg/dL 0.2-1.0 RBC UA (BEAKER) (test rxgk=841) 9 /HPF WBC UA (BEAKER) (test ldbd=926) 121 /HPF MUCUS (BEAKER) (test jsys=1317) Rare SQUAMOUS EPITHELIAL (BEAKER) (test ggpm=493) 1 /HPF CASTS (BEAKER) (test gafm=5087) 2 /LPF CRYSTALS, URINE (BEAKER) (test ibit=9049) Occasional YEAST (BEAKER) (test mbhl=5264) Occasional SOURCE(BEAKER) (test itdw=7592) [id number] 10:48:00 Test Item Value Reference Range Comments PHOSPHORUS (BEAKER) (test dbzr=198) 3.5 mg/dL 2.3-4.7 [id number] 10:48:00 Test Item Value Reference Range Comments MAGNESIUM (BEAKER) (test dtjx=863) 1.9 mg/dL 1.6-2.6 BASIC METABOLIC [id number] 10:48:00 Test Item Value Reference Range Comments SODIUM (BEAKER) (test 135 meq/L 136-145 zhwf=157) POTASSIUM (BEAKER) (test 3.7 meq/L 3.5-5.1 pbli=585) CHLORIDE (BEAKER) (test 97 meq/L 98-107 cdnm=248) CO2 (BEAKER) (test 31 meq/L 22-29 dqjq=517) BLOOD UREA NITROGEN 20 mg/dL 7-21 (BEAKER) (test nyxi=642) CREATININE (BEAKER) (test 0.61 mg/dL 0.57-1.25 fnsj=430) GLUCOSE RANDOM (BEAKER) 152 mg/dL 70-105 (test jgpz=449) CALCIUM (BEAKER) (test 8.9 mg/dL 8.4-10.2 xwoz=587) EGFR (BEAKER) (test 99 mL/min/1.73 sq m ESTIMATED GFR IS NOT czvb=4518) ACCURATE CREATININE CLEARANCE IN PREDICTING GLOMERULAR FILTRATION RATE. ESTIMATED GFR IS NOT APPLICABLE FOR DIALYSIS PATIENTS. CBC W/PLT COUNT & AUTO [id number] 10:27:00 Test Item Value Reference Range Comments WHITE BLOOD CELL COUNT (BEAKER) (test ojhj=431) 10.8 K/ L 3.5-10.5 RED BLOOD CELL COUNT (BEAKER) (test kxuo=991) 3.38 M/ L 3.93-5.22 HEMOGLOBIN (BEAKER) (test hmjh=093) 10.1 GM/DL 11.2-15.7 HEMATOCRIT (BEAKER) (test xweu=439) 30.8 % 34.1-44.9 MEAN CORPUSCULAR VOLUME (BEAKER) (test rspc=410) 91.1 fL 79.4-94.8 MEAN CORPUSCULAR HEMOGLOBIN (BEAKER) (test 29.9 pg 25.6-32.2 mcar=420) MEAN CORPUSCULAR HEMOGLOBIN CONC (BEAKER) (test 32.8 GM/DL 32.2-35.5 fpth=527) RED CELL DISTRIBUTION WIDTH (BEAKER) (test 14.0 % 11.7-14.4 lddw=630) PLATELET COUNT (BEAKER) (test pdha=298) 200 K/CU MM 150-450 MEAN PLATELET VOLUME (BEAKER) (test zaaq=191) 11.4 fL 9.4-12.3 NUCLEATED RED BLOOD CELLS (BEAKER) (test 0 /100 WBC 0-0 kzmh=247) NEUTROPHILS RELATIVE PERCENT (BEAKER) (test 75 % jrvz=847) LYMPHOCYTES RELATIVE PERCENT (BEAKER) (test 11 % xqzr=888) MONOCYTES RELATIVE PERCENT (BEAKER) (test 7 % sody=864) EOSINOPHILS RELATIVE PERCENT (BEAKER) (test 2 % sgfu=711) BASOPHILS RELATIVE PERCENT (BEAKER) (test 0 % wzsz=248) NEUTROPHILS ABSOLUTE COUNT (BEAKER) (test 8.05 K/ L 1.56-6.13 ardw=913) LYMPHOCYTES ABSOLUTE COUNT (BEAKER) (test 1.22 K/ L 1.18-3.74 bgln=908) MONOCYTES ABSOLUTE COUNT (BEAKER) (test 0.73 K/ L 0.24-0.36 aims=054) EOSINOPHILS ABSOLUTE COUNT (BEAKER) (test 0.23 K/ L 0.04-0.36 oohv=782) BASOPHILS ABSOLUTE COUNT (BEAKER) (test 0.02 K/ L 0.01-0.08 yxcv=509) IMMATURE GRANULOCYTES-RELATIVE PERCENT (BEAKER) 5 % 0-1 (test mlfe=0026) SEDIMENTATION [id number] 07:15:00 Test Item Value Reference Range Comments SEDIMENTATION RATE, ERYTHROCYTE (BEAKER) (test > mm/HR 0-30 kgcs=181) HIV-1 ANTIGEN WITH HIV-1/2 [id number] 05:57:00 Test Item Value Reference Range Comments HIV-1 ANTIGEN WITH HIV 1\T\2 ANTIBODY (2) Nonreactive Nonreactive (BEAKER) (test cbqn=7268) LIPID [id number] 05:43:00 Test Item Value Reference Range Comments TRIGLYCERIDES (BEAKER) (test 1263 mg/dL Specimen slightly hemolyzed ffqk=534) CHOLESTEROL (BEAKER) (test 225 mg/dL Specimen slightly hemolyzed upgp=144) HDL CHOLESTEROL (BEAKER) (test 37 mg/dL xtkb=946) Calculated LDL not valid if triglyceride >400 mg/dLTriglyceride Reference Range: Low Risk <150 Borderline 150-199 High Risk 200-499 Very High Risk >=500Cholesterol Reference Range: Low Risk <200 Borderline 200-239 High Risk >240HDL Cholesterol Reference Range: Low Risk >=60 High Risk <40LDL Cholesterol ReferenceRange: Optimal <100 Near Optimal 100-129 Borderline 130-159 High 160-189 Very High >=190 Specimen markedly lipemicC-REACTIVE [id number] 05:41:00 Test Item Value Reference Range Comments C-REACTIVE PROTEIN (BEAKER) (test ywpx=022) 19.86 mg/dL 0.00-0.50 COMPLEMENT COMPONENT [id number] 05:40:00 Test Item Value Reference Range Comments C4 COMPLEMENT (BEAKER) (test rybq=504) 21 mg/dL 15-57 COMPLEMENT COMPONENT [id number] 05:40:00 Test Item Value Reference Range Comments C3 COMPLEMENT (BEAKER) (test avyb=454) 144 mg/dL 82-193 BLOOD GAS, [id number] 04:32:00 Test Item Value Reference Range Comments PH ARTERIAL (BEAKER) (test jblc=309) 7.47 7.35-7.45 PCO2 ARTERIAL (BEAKER) (test nwdj=173) 45 mmHg 35-45 PO2 ARTERIAL (BEAKER) (test hknd=373) 141 mmHg 80-90 O2 SATURATION ARTERIAL (BEAKER) (test lzay=857) 98.9 % 96.0-97.0 HCO3 ARTERIAL (BEAKER) (test flee=143) 32 mmol/L 21-29 BASE EXCESS ARTERIAL (BEAKER) (test bpxl=985) 7.6 mmol/L -2.0-3.0 PATIENT TEMPERATURE (BEAKER) (test mowm=0350) 38.0 C FIO2 (BEAKER) (test hzzg=8064) 40.0 % RAD, CHEST, 1 VIEW, NON [id number] 03:48:00Reason for exam:-> intubatedShould this be performed at the bedside?->YesFINAL REPORT RAD, CHEST, 1 VIEW, NON DEPT INDICATION: intubated COMPARISON: Prior day's exam FINDINGS: Portable frontal view of the chest. IMPRESSION: Support Lines: Stable. Lungs and pleura: Predominantly upper lobe opacities similar to the prior examination. Interstitial markings have improved. No effusion. No pneumothorax.Heart and mediastinum: Stable contours. Additionalfindings: None. Signed: JR Huggins Robert MDReport Verified Date/Time: 08/26/2017 03:48:06 Reading Location: [address] Reading Room CREATININE, RANDOM [id number] 22:40:00 Test Item Value Reference Range Comments CREATININE URINE (BEAKER) (test yrfd=696) 94.2 mg/dL Reference Range: No NormalsPROTEIN, RANDOM [id number] 22:40:00 Test Item Value Reference Range Comments PROTEIN, URINE (BEAKER) (test ckds=8879) 70 mg/dL 0-14 URINALYSIS W/ [id number] 20:42:00 Test Item Value Reference Range Comments COLOR (BEAKER) (test afwr=456) Yellow CLARITY (BEAKER) (test mscc=017) Hazy SPECIFIC GRAVITY UA (BEAKER) (test jdmy=980) 1.021 1.001-1.035 PH UA (BEAKER) (test obgs=647) 6.0 5.0-8.0 PROTEIN UA (BEAKER) (test rjan=973) 50 mg/dL Negative GLUCOSE UA (BEAKER) (test hmxo=518) Negative Negative KETONES UA (BEAKER) (test wbgq=614) 10 mg/dL Negative BILIRUBIN UA (BEAKER) (test pyjx=584) Negative Negative BLOOD UA (BEAKER) (test wgex=208) Small Negative NITRITE UA (BEAKER) (test zfxg=908) Negative Negative LEUKOCYTE ESTERASE UA (BEAKER) (test tyet=331) Large Negative UROBILINOGEN UA (BEAKER) (test ccxe=201) 0.2 mg/dL 0.2-1.0 RBC UA (BEAKER) (test zhnp=006) 34 /HPF WBC UA (BEAKER) (test onlb=189) 122 /HPF BACTERIA (BEAKER) (test ulyo=993) Occasional MUCUS (BEAKER) (test xpkp=2834) Rare SQUAMOUS EPITHELIAL (BEAKER) (test rrki=177) 1 /HPF CRYSTALS, URINE (BEAKER) (test swtz=9427) Occasional YEAST (BEAKER) (test fljd=9994) Few SOURCE(BEAKER) (test gkyi=3679) Urine, Banks NEEDLE EMG, 4 [id number] 17:31:00Reason for exam:->progressive weakness and stiffness,Reason for exam:->with nerve conduction study if possibleShould this be performed at the bedside?->YesBaylor [facility]om[facility] CenterNeurophysiology DepartmentELECTROMYOGRAPHY / NERVE CONDUCTION STUDY [address] [facility] [address] [place] [address] Name: Juanpablo Gorman : Date of : 1955 Gender: Female Date of Exam: 08/25/2017 4:53 PMReferring Physician: Leon LewlExamining Physician: Linda LeaPatient History: Patient presents with a chronic history of stiffness and gait instability, now currently admitted with encephalopathy, respiratory failure and difficulty weaning off ventilator. On exam, patient is intubated and on propofol, has some withdrawal to pain in arms and legs, normal facial grimace. This study was done to evaluate for polyneuropathy or diffuse denervation.Motor Nerve Conduction:Nerve and Site Latency Amplitude Segment Latency Difference Distance Conduction Velocity Peroneal.RAnkle 4.8 ms 4.0 mV Extensor digitorum brevis-Ankle 4.8 ms 60 mm Fibula (head) 11.8 ms 3.9 mV Ankle-Fibula (head) 7.0 ms 300 mm 43 m/sKnee 13.9 ms 3.6 mV Fibula (head)-Knee 2.1 ms 100 mm 48 m/sTibial.RAnkle 4.1 ms 11.0 mV Abductor hallucis-Ankle 4.1 ms 60 mm Popliteal fossa 13.6 ms 5.9 mV Ankle- Popliteal fossa 9.5 ms 380 mm 40 m/sMedian.R (EDEMA)Wrist 3.9 ms 4.1 mV Abductor pollicis brevis-Wrist 3.9 ms 60 mm Elbow 8.4 ms 3.7 mV Wrist-Elbow 4.5 ms 235 mm 52 m/sUlnar.R (EDEMA)Wrist 2.3 ms 4.7 mV Abductor digiti minimi (manus)-Wrist 2.3 ms 60 mm Below elbow 6.2 ms 4.7 mV Wrist-Below elbow 3.9 ms 195 mm 50 m/sAbove elbow 8.0 ms 4.4 mV Below elbow-Above elbow 1.8 ms 100 mm 56 m/sF-Wave StudiesNerve M-Latency F-LatencyPeroneal.R 13.9 51.4Tibial.R 13.6 45.0Median.R 8.4 31.0Ulnar.R 8.0 30.3Sensory Nerve Conduction: Nerve and Site Onset Latency Peak Latency Amplitude Segment Latency Difference Distance Conduction VelocitySural.RLower leg 2.3 ms 3.7 ms 21 稪V Ankle-Lower leg 2.3 ms 140 mm 38 m/sMedian.RWrist 2.7 ms 3.5 ms14 𕜨V Digit II (index finger)-Wrist 2.7 ms 130 mm 47 m/sUlnar.RWrist 2.4 ms 2.9 ms 11 ᱧV Digit V (little finger)-Wrist 2.4 ms 110 mm 46 m/sRadial.RForearm 1.6 ms 2.2 ms 18 𒃸V Anatomical snuff box-Forearm 1.6 ms 80 mm 36 m/sH -waves:Nerve Latency Amplitude (max)Tibial.RM-wave: 5.0 ms 6.1 mVH-wave: NR NRNeedle EMG Examination: Insertional Spontaneous Activity Volitional MUAPs Muscle Insertional Fibs +Wave Fasc Duration Amplitude Poly RecruitmentTibialis anterior.R Normal None None None Normal Normal None Normal (used noxious stimuli)Gastrocnemius (Medial head).R Normal None None None - - - Patient sedatedVastus medialis.R Normal None None None - - - Patient sedatedExtensor hallucis longus.R Normal None None None Normal Normal None Normal (used noxious stimuli)Iliopsoas.R Normal None None None Normal Normal None Normal ( used noxious stimuli)1st dorsal interosseous.R Normal None None None - - - Patient sedatedAbductor pollicis brevis.R Normal None None None - - - Patient sedatedFlexor carpi radialis.R Increased None 1+ None - - - Patient sedatedBiceps brachii.R Increased None 1+ None - - - Patient sedatedDeltoid.R Increased 1+ None None - - - Patient sedatedTriceps brachii.R Normal None None None - - - Patient sedatedDeltoid.L Increased None None None - - - Patient sedatedBiceps brachii.L Increased None 1+ None - - - Patient sedatedFlexor carpi radialis.L Normal None None None - - - Patient sedatedExtensor carpi radialis.L Increased None 1+ None- - - Patient sedatedAbductor pollicis brevis.L Normal None None None - - - Patient sedatedSummaryof findings: 1. Sensory studies of the right sural, superficial radial, ulnar and median nerves showed normal findings.2. Motor studies of the right peroneal and tibial nerves showed normal findings. The right median and ulnar nerves showed slightly low amplitudes in the setting of edema, otherwisenormal. F-wave latencies were normal.3. H-wave reflexes recording at the right soleus muscle showed no response.4. Electromyography of the bilateral upper and right lower limbs was done using a disposable concentric needle. There was mild spontaneous activity in the right FCR, biceps, deltoid, andleft biceps and ECR. There were no units recruited in most muscles since patient was sedated, but with noxious stimuli there was normal recruitments and morphologies noted in the TA, EHL and iliopsoas. Conclusions: This is a limited and abnormal electrodiagnostic study due to the following:Conclusions: This is a limited and abnormal electrodiagnostic study due to the followin. Mild vs. early denervation noted in the bilateral C6 myotomes, equivocal at C5 as well. Since patient could not activate muscles due to sedation, cannot comment on chronicity or severity.There is no electrophysiologic evidence of diffuse active denervation of the motor roots (bulbar and thoracic levels deferred since patient is intubated and sedated) or large-fiber polyneuropathy.Comment: Compared to EMG/NCS studies at [facility] on October 042014 and April 012016, the above denervation is new; there are no other changes. Linda Lea M.D. CSF CELL COUNT [id number]- 02-06 16:50:00 Test Item Value Reference Range Comments APPEARANCE CSF (BEAKER) (test lvkb=497) Clear Clear COLOR CSF (BEAKER) (test wopx=642) Colorless Colorless RBC CSF (BEAKER) (test uetb=898) 1 /cu mm 0-5 WBC CSF (BEAKER) (test odrl=6580) 0 /cu mm <=5 RBCS FRESH (BEAKER) (test uqho=8894) 100% Fresh NUMBER OF CELLS DIFF'D (BEAKER) (test qqkt=2256) 0 TUBE NUMBER CSF (BEAKER) (test zxfs=3513) 4 GLUCOSE, [id number] 16:30:00 Test Item Value Reference Range Comments GLUCOSE CSF (BEAKER) (test offx=958) 78 mg/dL 40-70 PROTEIN, [id number] 16:30:00 Test Item Value Reference Range Comments PROTEIN CSF (BEAKER) (test boff=221) 30 mg/dL 15-45 RAD, CHEST, 1 VIEW, NON [id number] 13:17:00Reason for exam:->post picc line insertion Should this be performed at the bedside?->YesFINAL REPORT Chest one view AP 08/25/2017 1:17 PM CLINICAL INDICATION: post picc line insertion COMPARISON: 08/25/2017 at 1310 IMPRESSION: The tip of a right PICC projects over the superior vena cava, near the cavoatrial junction. Remaining support hardware is unchanged in position.Cardiomediastinal contours are stable. Central pulmonary vasculature congestion and bilateral pulmonary opacities are similar in appearance to the prior examination Signed: Tamir Truong MDReport Verified Date/Time: 08/25/2017 13:17:41 Reading Location: [facility] C0[facility] Consult Reading Room BASIC METABOLIC [id number] 05:57:00 Test Item Value Reference Range Comments SODIUM (BEAKER) (test 135 meq/L 136-145 geeu=461) POTASSIUM (BEAKER) (test 3.8 meq/L 3.5-5.1 nazm=282) CHLORIDE (BEAKER) (test 98 meq/L 98-107 ecyi=011) CO2 (BEAKER) (test 27 meq/L 22-29 xwro=976) BLOOD UREA NITROGEN 20 mg/dL 7-21 (BEAKER) (test wysv=353) CREATININE (BEAKER) (test 0.61 mg/dL 0.57-1.25 girw=215) GLUCOSE RANDOM (BEAKER) 121 mg/dL 70-105 (test vvax=846) CALCIUM (BEAKER) (test 8.9 mg/dL 8.4-10.2 cwys=128) EGFR (BEAKER) (test 99 mL/min/1.73 sq m ESTIMATED GFR IS NOT ztfz=9278) ACCURATE CREATININE CLEARANCE IN PREDICTING GLOMERULAR FILTRATION RATE. ESTIMATED GFR IS NOT APPLICABLE FOR DIALYSIS PATIENTS. [id number] 05:57:00 Test Item Value Reference Range Comments MAGNESIUM (BEAKER) (test burq=756) 2.1 mg/dL 1.6-2.6 [id number] 05:57:00 Test Item Value Reference Range Comments PHOSPHORUS (BEAKER) (test phzd=442) 2.7 mg/dL 2.3-4.7 [id number] 05:57:00 Test Item Value Reference Range Comments ALBUMIN (BEAKER) (test dxxe=1998) 2.7 g/dL 3.5-5.0 CBC W/PLT COUNT & AUTO [id number] 05:28:00 Test Item Value Reference Range Comments WHITE BLOOD CELL COUNT (BEAKER) (test rkjq=341) 11.5 K/ L 3.5-10.5 RED BLOOD CELL COUNT (BEAKER) (test gayy=077) 3.50 M/ L 3.93-5.22 HEMOGLOBIN (BEAKER) (test lnmu=979) 10.5 GM/DL 11.2-15.7 HEMATOCRIT (BEAKER) (test fguf=225) 32.0 % 34.1-44.9 MEAN CORPUSCULAR VOLUME (BEAKER) (test rqoy=520) 91.4 fL 79.4-94.8 MEAN CORPUSCULAR HEMOGLOBIN (BEAKER) (test 30.0 pg 25.6-32.2 iajz=908) MEAN CORPUSCULAR HEMOGLOBIN CONC (BEAKER) (test 32.8 GM/DL 32.2-35.5 goid=955) RED CELL DISTRIBUTION WIDTH (BEAKER) (test 14.1 % 11.7-14.4 cbzg=843) PLATELET COUNT (BEAKER) (test odnn=956) 190 K/CU MM 150-450 MEAN PLATELET VOLUME (BEAKER) (test yomq=643) 11.7 fL 9.4-12.3 NUCLEATED RED BLOOD CELLS (BEAKER) (test 0 /100 WBC 0-0 ssam=116) NEUTROPHILS RELATIVE PERCENT (BEAKER) (test 70 % guoe=883) LYMPHOCYTES RELATIVE PERCENT (BEAKER) (test 13 % kizo=327) MONOCYTES RELATIVE PERCENT (BEAKER) (test 8 % engi=703) EOSINOPHILS RELATIVE PERCENT (BEAKER) (test 4 % ppaw=371) BASOPHILS RELATIVE PERCENT (BEAKER) (test 0 % bdfb=148) NEUTROPHILS ABSOLUTE COUNT (BEAKER) (test 8.07 K/ L 1.56-6.13 rsto=513) LYMPHOCYTES ABSOLUTE COUNT (BEAKER) (test 1.45 K/ L 1.18-3.74 fenu=473) MONOCYTES ABSOLUTE COUNT (BEAKER) (test 0.92 K/ L 0.24-0.36 amrq=270) EOSINOPHILS ABSOLUTE COUNT (BEAKER) (test 0.44 K/ L 0.04-0.36 reth=726) BASOPHILS ABSOLUTE COUNT (BEAKER) (test 0.02 K/ L 0.01-0.08 bvpa=555) IMMATURE GRANULOCYTES-RELATIVE PERCENT (BEAKER) 5 % 0-1 (test oeei=7365) RAD, CHEST, 1 VIEW, NON [id number] 04:09:00Reason for exam:-> intubatedShould this be performed at the bedside?->YesFINAL REPORT EXAMINATION: AP PORTABLE CHEST RADIOGRAPH CLINICAL INDICATION: Intubated IMPRESSION: Compared with 08/24/2017. Support tube and catheter positions are unchanged. Overall aeration of the right lung has improved in the interval. Scattered opacities are again noted throughout both lungs, grossly stable. No definite evidence of new lung consolidation or pneumothorax. The cardiac and mediastinal contours are also unchanged. Signed: Aileen Horn MDReport Verified Date/Time: 08/25/2017 04:09:36 Reading Location: [address] Reading Room Electronicallysigned by: AILEEN HORN M.D. on 08/25/2017 04:09 AMBLOOD GAS, [id number] 03:26:00 Test Item Value Reference Range Comments PH ARTERIAL (BEAKER) (test zvkx=408) 7.48 7.35-7.45 PCO2 ARTERIAL (BEAKER) (test ukye=732) 44 mmHg 35-45 PO2 ARTERIAL (BEAKER) (test cmhs=892) 170 mmHg 80-90 O2 SATURATION ARTERIAL (BEAKER) (test yiou=291) 99.2 % 96.0-97.0 HCO3 ARTERIAL (BEAKER) (test akeb=519) 32 mmol/L 21-29 BASE EXCESS ARTERIAL (BEAKER) (test lpxy=539) 7.9 mmol/L -2.0-3.0 PATIENT TEMPERATURE (BEAKER) (test bjrz=2976) 38.0 C FIO2 (BEAKER) (test xeps=9461) 50.0 % URINALYSIS W/ [id number] 19:04:00 Test Item Value Reference Range Comments COLOR (BEAKER) (test ynbe=679) Yellow CLARITY (BEAKER) (test qqnm=343) Cloudy SPECIFIC GRAVITY UA (BEAKER) (test ygnm=595) 1.020 1.001-1.035 PH UA (BEAKER) (test rgrm=953) 7.0 5.0-8.0 PROTEIN UA (BEAKER) (test pbzv=540) 100 mg/dL Negative GLUCOSE UA (BEAKER) (test gkzt=997) Negative Negative KETONES UA (BEAKER) (test pixl=035) Trace Negative BILIRUBIN UA (BEAKER) (test eiri=260) Positive Negative BLOOD UA (BEAKER) (test hpir=109) Large Negative NITRITE UA (BEAKER) (test plzw=573) Negative Negative LEUKOCYTE ESTERASE UA (BEAKER) (test sovq=675) Trace Negative UROBILINOGEN UA (BEAKER) (test pmyl=064) 1.0 mg/dL 0.2-1.0 RBC UA (BEAKER) (test gwec=476) 229 /HPF WBC UA (BEAKER) (test tbce=849) 79 /HPF MUCUS (BEAKER) (test tixd=5443) Moderate SQUAMOUS EPITHELIAL (BEAKER) (test gpjo=453) 1 /HPF YEAST (BEAKER) (test wwzd=9617) Rare SOURCE(BEAKER) (test mkez=0912) Urine, Banks TSH/FREE T4 IF [id number] 17:55:00 Test Item Value Reference Range Comments THYROID STIMULATING HORMONE (BEAKER) (test 2.31 uIU/mL 0.35-4.94 ejoe=848) [id number] 17:32:00 Test Item Value Reference Range Comments POTASSIUM (BEAKER) (test hdfp=242) 3.8 meq/L 3.5-5.1 EEG [id number] 16:48:00For STAT EEG- after 5 PM weekdays, weekends and holidays, page the on-call assembly repairer Reason for exam:-> unresponsivenessAddendum BeginsCONTINUOUS EEG/BEDSIDE MONITORING STUDY ACC no: [id number] START DATE AND TIME: 08/23/2017 at 10:30 am STOP DATE AND TIME: 2017 at 12:14pm RECORDING HOURS ~ 2 ICD 10 - G93.40 TECHNICAL SUMMARY: During the stimulated state, the frequency spectrum consists primarily of diffuse, moderate amplitude, sinusoidal 1.5-3 Hz delta with intermittent 4-6 Hz theta, as well as some faster activities. Neither an occipital dominant rhythm, nor an organized frequency amplitude gradient are well demonstrable. Reactivity to external stimuli is evident. Sleep architectures are not evident in this study. IMPRESSION: This EEG study is abnormal due to moderate diffuse slowing of the background rhythms. There is no evidence for epileptiform abnormality, including absence of electrographic seizure in this record. CLINICAL CORRELATION: Diffuse slowing as seen in this record supports an underlying moderate encephalopathy. The absence of epileptiform abnormality does not necessarily preclude a clinical diagnosis of epilepsy or provoked seizure for the symptom(s) of interest. Compared to the previous study this am, this study has not changed. Yvonne Holden MD Clinical Neurophysiology fellow Addendum EndsCONTINUOUS EEG/BEDSIDE MONITORING STUDYEEG NO: [id number] no: [id number] DATE AND TIME: 08/23/2017 at 02:30 amSTOP DATE AND TIME: 08/23/2017 at 10:30 amRECORDING HOURS ~ 8ICD 10 - G93.40CONDITION OF REPORT: CONDITION OF REPORT: This continuous Video-EEG record is run with a digital EEG machine, 22 channels , with standard International System 10-20 electrode placements, eye movement leads, and an EKG lead. Monitoring was maintained by the neurophysiology technical staff, so that any clinicalobservations were made and documented by the attending medical or nursing staff. Interpretation of the EEG was made retrospectively at designated time periods. TECHNICAL SUMMARY: During the stimulated state, the frequency spectrum consists primarily of diffuse, moderate amplitude, sinusoidal 1.5-3 Hz delta with intermittent 4-6 Hz theta, as well as some faster activities. Neither an occipital dominant rhythm, nor an organized frequency amplitude gradient are well demonstrable. Reactivity to externalstimuli is evident.Sleep architectures are not evident in this study.IMPRESSION: This EEG study is abnormal due to moderate diffuse slowing of the background rhythms. There is no evidence for epileptiform abnormality, including absence of electrographic seizure in this record. CLINICAL CORRELATION : Diffuse slowing as seen in this record supports an underlying moderate encephalopathy. The absence of epileptiform abnormality does not necessarily preclude a clinical diagnosis of epilepsy or provoked seizure for the symptom(s ) of interest. Compared to the baseline study, this study has not changed. JUANITA Trejolinical Neurophysiology fellowMaira Dela Cruz MDNeurophysiology/ Epilepsy Attending Electronically signed by: MAIRA DELA CRUZ MD on 08/24 04:48 PMVANCOMYCIN LEVEL, [id number] 14:26:00 Test Item Value Reference Range Comments VANCOMYCIN TROUGH (BEAKER) (test cmjw=264) 8.4 ug/mL 10.0-20.0 Before noon dose todayURINE [id number] 12:34:00 Test Item Value Reference Range Comments CULTURE (BEAKER) (test >100,000 col/mL Lesly albicans cylr=0599) SPUTUM CULTURE + GRAM [id number] 10:18:00 Test Item Value Reference Range Comments CULTURE (BEAKER) (test tlcd=2428) Amikacin (test code=1) Ampicillin + Sulbactam (test code=6) Aztreonam (test code=32) Cefepime (test code=51) Cefoxitin (test code=68) Ceftazidime (test code=27) Ceftriaxone (test code=52) Ertapenem (test code=38) Gentamicin (test code=18) Levofloxacin (test code=22) Meropenem (test code=34) Nitrofurantoin (test code=23) Piperacillin + Tazobactam (test code=29) Tetracycline (test code=2) Tobramycin (test code=25) Trimethoprim + Sulfamethoxazole (test code=47) CULTURE (BEAKER) (test <1+ Escherichia coli zlux=5855) GRAM STAIN RESULT (BEAKER) 1+ WBCs (test cryw=4240) GRAM STAIN RESULT (BEAKER) No organisms seen (test qhdf=625357) No Normal respiratory thais [id number] 04:42:00 Test Item Value Reference Range Comments PHOSPHORUS (BEAKER) (test zpld=447) 2.7 mg/dL 2.3-4.7 [id number] 04:42:00 Test Item Value Reference Range Comments MAGNESIUM (BEAKER) (test inxb=650) 2.0 mg/dL 1.6-2.6 BASIC METABOLIC [id number] 04:42:00 Test Item Value Reference Range Comments SODIUM (BEAKER) (test 136 meq/L 136-145 ggao=278) POTASSIUM (BEAKER) (test 3.6 meq/L 3.5-5.1 jdtq=326) CHLORIDE (BEAKER) (test 99 meq/L 98-107 jkul=344) CO2 (BEAKER) (test 27 meq/L 22-29 czcc=566) BLOOD UREA NITROGEN 23 mg/dL 7-21 (BEAKER) (test hbsm=049) CREATININE (BEAKER) (test 0.67 mg/dL 0.57-1.25 oubw=223) GLUCOSE RANDOM (BEAKER) 144 mg/dL 70-105 (test xbjp=898) CALCIUM (BEAKER) (test 8.4 mg/dL 8.4-10.2 wfgd=041) EGFR (BEAKER) (test 89 mL/min/1.73 sq m ESTIMATED GFR IS NOT turs=6895) ACCURATE CREATININE CLEARANCE IN PREDICTING GLOMERULAR FILTRATION RATE. ESTIMATED GFR IS NOT APPLICABLE FOR DIALYSIS PATIENTS. BLOOD GAS, [id number] 04:16:00 Test Item Value Reference Range Comments PH ARTERIAL (BEAKER) (test jybj=550) 7.48 7.35-7.45 PCO2 ARTERIAL (BEAKER) (test sbol=991) 43 mmHg 35-45 PO2 ARTERIAL (BEAKER) (test oaoo=761) 185 mmHg 80-90 O2 SATURATION ARTERIAL (BEAKER) (test ourf=253) 99.3 % 96.0-97.0 HCO3 ARTERIAL (BEAKER) (test pcli=117) 31 mmol/L 21-29 BASE EXCESS ARTERIAL (BEAKER) (test mkxn=220) 7.1 mmol/L -2.0-3.0 PATIENT TEMPERATURE (BEAKER) (test dvzm=8612) 38.1 C FIO2 (BEAKER) (test fryj=6336) 50.0 % RAD, CHEST, 1 VIEW, NON [id number] 04:08:00Reason for exam:-> intubatedShould this be performed at the bedside?->YesFINAL REPORT EXAMINATION: AP PORTABLE CHEST RADIOGRAPH CLINICAL INDICATION: Intubated IMPRESSION: Compared to 08/23/2017 Tip of the endotracheal tube projects over the midline near the level the clavicles approximately 5 cm superior to the keeley. Tip of the feeding tube extends below the diaphragm and inferior margin of today's study. Scattered patchy and nodular opacities are again noted in both lungs, stable. No evidence of new lung consolidation, pulmonary edema or pneumothorax. Cardiac and mediastinal contours are grossly stable allowing for differences in technique and positioning. In summary, no significant interval change. Signed: Aileen Horn MDReport Verified Date/Time: 08/24/2017 04:08:53 Reading Location: [address] Reading Room CBC W/PLT COUNT & AUTO [id number] 04:07:00 Test Item Value Reference Range Comments WHITE BLOOD CELL COUNT (BEAKER) (test rfmu=652) 12.2 K/ L 3.5-10.5 RED BLOOD CELL COUNT (BEAKER) (test vugp=277) 3.65 M/ L 3.93-5.22 HEMOGLOBIN (BEAKER) (test pgbl=741) 10.6 GM/DL 11.2-15.7 HEMATOCRIT (BEAKER) (test xoli=328) 33.2 % 34.1-44.9 MEAN CORPUSCULAR VOLUME (BEAKER) (test hyat=999) 91.0 fL 79.4-94.8 MEAN CORPUSCULAR HEMOGLOBIN (BEAKER) (test 29.0 pg 25.6-32.2 ttet=078) MEAN CORPUSCULAR HEMOGLOBIN CONC (BEAKER) (test 31.9 GM/DL 32.2-35.5 uvnl=891) RED CELL DISTRIBUTION WIDTH (BEAKER) (test 14.1 % 11.7-14.4 ecvw=438) PLATELET COUNT (BEAKER) (test qwwy=296) 176 K/CU MM 150-450 MEAN PLATELET VOLUME (BEAKER) (test oqrb=485) 11.3 fL 9.4-12.3 NUCLEATED RED BLOOD CELLS (BEAKER) (test 0 /100 WBC 0-0 nmgk=883) NEUTROPHILS RELATIVE PERCENT (BEAKER) (test 81 % qixx=864) LYMPHOCYTES RELATIVE PERCENT (BEAKER) (test 9 % yuln=470) MONOCYTES RELATIVE PERCENT (BEAKER) (test 5 % wqvs=955) EOSINOPHILS RELATIVE PERCENT (BEAKER) (test 3 % ohds=437) BASOPHILS RELATIVE PERCENT (BEAKER) (test 0 % rnrr=742) NEUTROPHILS ABSOLUTE COUNT (BEAKER) (test 9.80 K/ L 1.56-6.13 rwvn=808) LYMPHOCYTES ABSOLUTE COUNT (BEAKER) (test 1.06 K/ L 1.18-3.74 aboh=331) MONOCYTES ABSOLUTE COUNT (BEAKER) (test 0.59 K/ L 0.24-0.36 agrs=921) EOSINOPHILS ABSOLUTE COUNT (BEAKER) (test 0.40 K/ L 0.04-0.36 aaqd=262) BASOPHILS ABSOLUTE COUNT (BEAKER) (test 0.03 K/ L 0.01-0.08 dkyq=019) IMMATURE GRANULOCYTES-RELATIVE PERCENT (BEAKER) 3 % 0-1 (test zoca=7774) HEPATIC FUNCTION [id number] 09:10:00 Test Item Value Reference Range Comments TOTAL PROTEIN (BEAKER) (test bwfh=076) 6.1 gm/dL 6.0-8.3 ALBUMIN (BEAKER) (test airv=0580) 2.7 g/dL 3.5-5.0 BILIRUBIN TOTAL (BEAKER) (test wgse=817) 0.9 mg/dL 0.2-1.2 BILIRUBIN DIRECT (BEAKER) (test ioss=556) 0.6 mg/dL 0.1-0.5 ALKALINE PHOSPHATASE (BEAKER) (test yvfj=669) 103 U/L 40-150 AST (SGOT) (BEAKER) (test bakj=839) 28 U/L 5-34 ALT (SGPT) (BEAKER) (test nwqy=346) 42 U/L 6-55 RAD, CHEST, 1 VIEW, NON [id number] 07:41:00Reason for exam:-> intubatedShould this be performed at the bedside?->YesFINAL REPORT INDICATION: intubated COMPARISON: August 22, 2017 TECHNIQUE: Chest radiograph, single view, portable technique. FINDINGS / IMPRESSION: Right upper lung patchy opacity versus mass and nonspecific diffuse reticular opacities of the left lung again demonstrated. No pneumothorax or pleural effusion demonstrated. Heart shadow not enlarged. Endotracheal tube and feedingtube again noted. Chest CT, preferably with intravenous contrast, is recommended for further evaluation. Signed: Zuhair Arguetaeport Verified Date/Time: 08/23/2017 07:41:14 Reading Location: [place] [id number] Consult Reading Room Electronically signed by: ZUHAIR ARGUETA M.D. on 2017 07:41 AMEEG AWAKE AND [id number] 07:06:00BEDSIDE CONTINUOUS EEG STUDY -- BASELINE STUDYDATE OF EXAMINATION: 08/23/2017 EEG NO: [id number] ICD 10 - G93.40CONDITION OF REPORT: This is a digital EEG study using the standard International 10-20 systemfor placement of 22 electrodes, including eye movement leads, and an EKG lead. TECHNICAL SUMMARY: During the stimulated state , the frequency spectrum consists primarily of diffuse, moderate amplitude, sinusoidal 1.5-3 Hz delta with intermittent 4-6 Hz theta, as well as some faster activities. Neither an occipital dominant rhythm, nor an organized frequency amplitude gradient are well demonstrable. Reactivity to external stimuli is evident. Sleep architectures are not evident in this study. IMPRESSION: This EEG study is abnormal due to moderate diffuse slowing of the background rhythms. There is no evidence for epileptiform abnormality, including absence of electrographic seizure in this record. CLINICAL CORRELATION: Diffuse slowing as seen in this record supports an underlying moderate encephalopathy. The absence of epileptiform abnormality does not necessarily preclude a clinical diagnosis of epilepsy nor provoked seizure for the symptom(s) of interest. Yvonne Holden, [facility] – FAIRFAXlinical NeurophysiologyfellowDaperez Dela Cruz MDNeurophysiology/Epilepsy Attending BLOOD GAS, [id number] 05: 54:00 Test Item Value Reference Range Comments PH ARTERIAL (BEAKER) (test zvri=555) 7.45 7.35-7.45 PCO2 ARTERIAL (BEAKER) (test zejh=374) 46 mmHg 35-45 PO2 ARTERIAL (BEAKER) (test zviu=125) 211 mmHg 80-90 O2 SATURATION ARTERIAL (BEAKER) (test dvjd=037) 99.5 % 96.0-97.0 HCO3 ARTERIAL (BEAKER) (test eqru=212) 31 mmol/L 21-29 BASE EXCESS ARTERIAL (BEAKER) (test blra=097) 6.8 mmol/L -2.0-3.0 PATIENT TEMPERATURE (BEAKER) (test kfnp=7230) 37.5 C FIO2 (BEAKER) (test dqxd=2889) 60.0 % CBC W/PLT COUNT & AUTO [id number] 04:01:00 Test Item Value Reference Range Comments WHITE BLOOD CELL COUNT (BEAKER) (test dwui=061) 15.7 K/ L 3.5-10.5 RED BLOOD CELL COUNT (BEAKER) (test tgzv=518) 3.90 M/ L 3.93-5.22 HEMOGLOBIN (BEAKER) (test kkms=195) 11.4 GM/DL 11.2-15.7 HEMATOCRIT (BEAKER) (test nxkz=512) 35.3 % 34.1-44.9 MEAN CORPUSCULAR VOLUME (BEAKER) (test uysq=231) 90.5 fL 79.4-94.8 MEAN CORPUSCULAR HEMOGLOBIN (BEAKER) (test 29.2 pg 25.6-32.2 dege=122) MEAN CORPUSCULAR HEMOGLOBIN CONC (BEAKER) (test 32.3 GM/DL 32.2-35.5 wuvr=232) RED CELL DISTRIBUTION WIDTH (BEAKER) (test 14.3 % 11.7-14.4 gzxq=241) PLATELET COUNT (BEAKER) (test slyi=144) 206 K/CU MM 150-450 MEAN PLATELET VOLUME (BEAKER) (test lwel=052) 11.3 fL 9.4-12.3 NUCLEATED RED BLOOD CELLS (BEAKER) (test 0 /100 WBC 0-0 ewpm=442) NEUTROPHILS RELATIVE PERCENT (BEAKER) (test 83 % qrli=718) LYMPHOCYTES RELATIVE PERCENT (BEAKER) (test 9 % dnbn=979) MONOCYTES RELATIVE PERCENT (BEAKER) (test 3 % rwfm=240) EOSINOPHILS RELATIVE PERCENT (BEAKER) (test 2 % kwak=061) BASOPHILS RELATIVE PERCENT (BEAKER) (test 0 % cwkn=287) NEUTROPHILS ABSOLUTE COUNT (BEAKER) (test 13.10 K/ L 1.56-6.13 bggd=230) LYMPHOCYTES ABSOLUTE COUNT (BEAKER) (test 1.41 K/ L 1.18-3.74 vymi=415) MONOCYTES ABSOLUTE COUNT (BEAKER) (test 0.53 K/ L 0.24-0.36 bsmv=664) EOSINOPHILS ABSOLUTE COUNT (BEAKER) (test 0.35 K/ L 0.04-0.36 nand=708) BASOPHILS ABSOLUTE COUNT (BEAKER) (test 0.04 K/ L 0.01-0.08 kcdu=794) IMMATURE GRANULOCYTES-RELATIVE PERCENT (BEAKER) 2 % 0-1 (test bjqy=9418) [id number] 04:00:00 Test Item Value Reference Range Comments MAGNESIUM (BEAKER) (test 2.5 mg/dL 1.6-2.6 Specimen slightly hemolyzed uijd=010) [id number] 04:00:00 Test Item Value Reference Range Comments PHOSPHORUS (BEAKER) (test 2.4 mg/dL 2.3-4.7 Specimen slightly hemolyzed yjhv=527) BASIC METABOLIC [id number] 04:00:00 Test Item Value Reference Range Comments SODIUM (BEAKER) (test 137 meq/L 136-145 kwvi=741) POTASSIUM (BEAKER) (test 4.0 meq/L 3.5-5.1 Specimen slightly mytb=343) hemolyzed CHLORIDE (BEAKER) (test 99 meq/L 98-107 kptf=251) CO2 (BEAKER) (test 27 meq/L 22-29 eaqk=758) BLOOD UREA NITROGEN 29 mg/dL 7-21 (BEAKER) (test nwvy=195) CREATININE (BEAKER) (test 0.71 mg/dL 0.57-1.25 Specimen slightly jxgl=038) hemolyzed GLUCOSE RANDOM (BEAKER) 134 mg/dL 70-105 (test ltdw=026) CALCIUM (BEAKER) (test 8.7 mg/dL 8.4-10.2 fsfa=685) EGFR (BEAKER) (test 83 mL/min/1.73 sq m ESTIMATED GFR IS NOT jjxg=9197) ACCURATE CREATININE CLEARANCE IN PREDICTING GLOMERULAR FILTRATION RATE. ESTIMATED GFR IS NOT APPLICABLE FOR DIALYSIS PATIENTS. [id number] 21:12:00 Test Item Value Reference Range Comments PROCALCITONIN (BEAKER) (test ghej=0560) 4.18 ng/mL <0.05 SEPSIS RISK (ng/mL)Low: 0.05-0.50Intermediate: 0.51-2.00High: & gt;=[id number] 20:45:00 Test Item Value Reference Range Comments PHOSPHORUS (BEAKER) (test wlip=479) 2.9 mg/dL 2.3-4.7 [id number] 20:45:00 Test Item Value Reference Range Comments MAGNESIUM (BEAKER) (test icoz=152) 1.8 mg/dL 1.6-2.6 LACTATE DEHYDROGENASE (LDH)2017-08-22 20:11:00 Test Item Value Reference Range Comments LACTATE DEHYDROGENASE (BEAKER) (test mpnd=041) 454 U/L 125-220 BASIC METABOLIC [id number] 20:11:00 Test Item Value Reference Range Comments SODIUM (BEAKER) (test 137 meq/L 136-145 rnzm=438) POTASSIUM (BEAKER) (test 3.7 meq/L 3.5-5.1 memi=342) CHLORIDE (BEAKER) (test 98 meq/L 98-107 zyhx=579) CO2 (BEAKER) (test 29 meq/L 22-29 hapv=858) BLOOD UREA NITROGEN 34 mg/dL 7-21 (BEAKER) (test asyf=428) CREATININE (BEAKER) (test 0.73 mg/dL 0.57-1.25 lpfv=611) GLUCOSE RANDOM (BEAKER) 133 mg/dL 70-105 (test odac=977) CALCIUM (BEAKER) (test 8.9 mg/dL 8.4-10.2 ipem=491) EGFR (BEAKER) (test 81 mL/min/1.73 sq m ESTIMATED GFR IS NOT hblm=5477) ACCURATE CREATININE CLEARANCE IN PREDICTING GLOMERULAR FILTRATION RATE. ESTIMATED GFR IS NOT APPLICABLE FOR DIALYSIS PATIENTS. [id number] 20:02:00 Test Item Value Reference Range Comments AMMONIA (BEAKER) (test osaa=018) 29 mol/L 18-72 URINALYSIS W/ [id number] 19:52:00 Test Item Value Reference Range Comments COLOR (BEAKER) (test akmk=898) Yellow CLARITY (BEAKER) (test nsdg=369) Turbid SPECIFIC GRAVITY UA (BEAKER) (test pell=708) 1.020 1.001-1.035 PH UA (BEAKER) (test gdmc=725) 5.5 5.0-8.0 PROTEIN UA (BEAKER) (test jijq=928) 100 mg/dL Negative GLUCOSE UA (BEAKER) (test ahpy=572) Negative Negative KETONES UA (BEAKER) (test fatf=013) Trace Negative BILIRUBIN UA (BEAKER) (test ewhj=569) Positive Negative BLOOD UA (BEAKER) (test imeo=849) Large Negative NITRITE UA (BEAKER) (test sqkb=667) Negative Negative LEUKOCYTE ESTERASE UA (BEAKER) (test jczr=901) Trace Negative UROBILINOGEN UA (BEAKER) (test jyiz=188) 2.0 mg/dL 0.2-1.0 RBC UA (BEAKER) (test izym=361) 781 /HPF WBC UA (BEAKER) (test ripu=781) 61 /HPF MUCUS (BEAKER) (test xgif=1899) Many SQUAMOUS EPITHELIAL (BEAKER) (test rhkl=711) 3 /HPF GRANULAR CASTS (BEAKER) (test jezx=711) 36 /LPF CASTS (BEAKER) (test qiha=0102) 18 /LPF YEAST (BEAKER) (test jdrs=9635) Few SOURCE(BEAKER) (test dueh=5937) Urine, Banks RAD, CHEST, 1 VIEW, NON [id number] 19:52:00Reason for exam:-> intubatedShould this be performed at the bedside?->YesFINAL REPORT EXAMINATION: AP PORTABLE CHEST RADIOGRAPH CLINICAL INDICATION: Intubated IMPRESSION: No comparison studies are available. Tip of the endotracheal tube projects over the midline approximately 4 cm superior to the keeley. Tip of the feeding tube extends below the diaphragm and inferior margin of today's study. Scattered curvilinear and patchy opacities are noted throughout both lungs. The largest opacity is in the right upper lobe and extends for approximately 8 cm. Findings are nonspecific but may reflect a multifocal pneumonia. Aspiration pneumonia would be a consideration given the distribution. Pulmonary hemorrhage/infarct would also be included in the differential diagnosis. An underlying neoplastic process cannot be excluded. Subtle reticular opacities are also noted in both lungs which may be related to the a more confluent parenchymal lung opacities detailed above. Mild edema should also be considered. The heart size is normal. There is mild soft tissue fullness of the superior mediastinum which may be related to the AP portable technique and/or ectasia of the aorta. Pathologic process of the mediastinum including adenopathy should also be considered. No evidence of an acute osseous abnormality or pneumothorax. Chest CT would be beneficial in further characterization of the findings detailed above if clinically appropriate. Signed: Aileen Horn MDReport Verified Date/Time: 08/22/2017 19:52:23 Reading Location: [address] Reading Room CBC W/PLT COUNT & AUTO [id number] 19:46:00 Test Item Value Reference Range Comments WHITE BLOOD CELL COUNT (BEAKER) (test fzeu=098) 16.8 K/ L 3.5-10.5 RED BLOOD CELL COUNT (BEAKER) (test mrln=504) 4.10 M/ L 3.93-5.22 HEMOGLOBIN (BEAKER) (test jtrw=543) 12.0 GM/DL 11.2-15.7 HEMATOCRIT (BEAKER) (test idyc=302) 37.1 % 34.1-44.9 MEAN CORPUSCULAR VOLUME (BEAKER) (test rjcl=093) 90.5 fL 79.4-94.8 MEAN CORPUSCULAR HEMOGLOBIN (BEAKER) (test 29.3 pg 25.6-32.2 pkze=287) MEAN CORPUSCULAR HEMOGLOBIN CONC (BEAKER) (test 32.3 GM/DL 32.2-35.5 yget=770) RED CELL DISTRIBUTION WIDTH (BEAKER) (test 14.1 % 11.7-14.4 jgws=639) PLATELET COUNT (BEAKER) (test dqyl=329) 236 K/CU MM 150-450 MEAN PLATELET VOLUME (BEAKER) (test xwqg=398) 11.1 fL 9.4-12.3 NUCLEATED RED BLOOD CELLS (BEAKER) (test 0 /100 WBC 0-0 rdtt=408) NEUTROPHILS RELATIVE PERCENT (BEAKER) (test 79 % qbbq=505) LYMPHOCYTES RELATIVE PERCENT (BEAKER) (test 13 % cido=642) MONOCYTES RELATIVE PERCENT (BEAKER) (test 4 % drei=935) EOSINOPHILS RELATIVE PERCENT (BEAKER) (test 2 % soev=817) BASOPHILS RELATIVE PERCENT (BEAKER) (test 0 % pvgp=800) NEUTROPHILS ABSOLUTE COUNT (BEAKER) (test 13.29 K/ L 1.56-6.13 csqs=436) LYMPHOCYTES ABSOLUTE COUNT (BEAKER) (test 2.16 K/ L 1.18-3.74 pucs=037) MONOCYTES ABSOLUTE COUNT (BEAKER) (test 0.74 K/ L 0.24-0.36 lyso=548) EOSINOPHILS ABSOLUTE COUNT (BEAKER) (test 0.32 K/ L 0.04-0.36 zwfh=399) BASOPHILS ABSOLUTE COUNT (BEAKER) (test 0.05 K/ L 0.01-0.08 ixak=707) IMMATURE GRANULOCYTES-RELATIVE PERCENT (BEAKER) 2 % 0-1 (test xmnb=4431) BLOOD GAS, [id number] 19:31:00 Test Item Value Reference Range Comments PH ARTERIAL (BEAKER) (test ntsn=356) 7.46 7.35-7.45 PCO2 ARTERIAL (BEAKER) (test pxnx=297) 46 mmHg 35-45 PO2 ARTERIAL (BEAKER) (test wzar=173) 158 mmHg 80-90 O2 SATURATION ARTERIAL (BEAKER) (test kjur=382) 99.1 % 96.0-97.0 HCO3 ARTERIAL (BEAKER) (test pzrm=244) 32 mmol/L 21-29 BASE EXCESS ARTERIAL (BEAKER) (test ygaj=668) 7.4 mmol/L -2.0-3.0 PATIENT TEMPERATURE (BEAKER) (test kgrc=9247) 37.2 C FIO2 (BEAKER) (test bxsp=5486) 60.0 %
[2019-07-15] MEDS ORDERED: ONDANSETRON 4 MG/2 ML VIAL ONE (09:43)
[2019-07-15] MEDS ORDERED: FENTANYL CITR 100 MCG/2 ML ONE (09:43)
[2019-07-15 09:57] LABS: Absolute Lymphocytes (CBC) 1.9 K/uL (0.7-4.9); Basophils % 0.5 % (0-1.3); Hematocrit 39.9 % (36.0-45.0); Lymphocytes % 23.3 % (15.3-44.8); MPV 9.7 fL (7.6-11.3); RBC Red Blood Cell Count 4.37 M/uL (3.86-4.86)
[2019-07-15 10:14] LABS: Albumin 3.1 g/dL (3.4-5.0); Bilirubin Direct 0.1 mg/dL (0-0.2); Bilirubin Total 0.4 mg/dL (0.2-1.0); Potassium 3.6 mmol/L (3.5-5.1); Protein, Total 6.5 g/dL (6.4-8.2)
[2019-07-15 10:54] LABS: Urine Blood TRACE (NEG); Urine Glucose NEGATIVE (NEG); Urine Protein NEGATIVE (NEG); Urine Specific Gravity 1.025 (1.005-1.030); Urine pH 5.5 (5.0-7.0)
[2019-07-15 11:00] LABS: Urine Bacteria LOADED /HPF (<20); Urine Culture Reflex Order NOT NEEDED; Urine Mucus 1+ /HPF (NONE SEEN); Urine RBC <5 /HPF (NONE SEEN)
[2019-07-15] MEDS ORDERED: DIAZEPAM 10 MG/2 ML INJ SYRINGE ONE (11:03)
--- NOTE | 2019-07-15 11:14 | RAD REPORT ---
EXAM DESCRIPTION: CT - Abdomen Pelvis W Contrast - 07/15/2019 10:45 am CLINICAL HISTORY: right flank pain, back pain COMPARISON: CT study July 2017 TECHNIQUE: Biphasic, helical CT imaging of the abdomen and pelvis was performed following 100 ml non -ionic IV contrast. No oral contrast administered. All CT scans are performed using dose optimization technique as appropriate and may include automated exposure control or mA/KV adjustment according to patient size. FINDINGS: No suspicious findings in the lung bases. The liver, spleen, and pancreas show no suspicious findings. Cholecystectomy clips are present. No bi liary tree dilatation. Renal function is symmetric. No obstructing or nonobstructing calculi. No pyelonephritis or acute par enchymal process. No bladder abnormalities. No adrenal abnormalities. Uterus is absent. Ovaries are a bsent or atrophic. No adnexal abnormality. No dilated bowel loops or bowel wall thickening. Appendix is not clearly defined and may be absent. N o appendicitis findings. Cecum is low lying on the floor the pelvis. No free air, free fluid or inflammatory stranding. No hernia, mass or bulky lymphadenopathy. Pain p ump device is seen in the fatty tissues lower right abdomen. No compression fracture or acute bone finding. Pain pump or neurostimulator wire enters the central c anal at the L1-2 level and extends superiorly to the midthoracic spine, off the field of view. IMPRESSION: Contrast enhanced CT abdomen and pelvis showing no acute finding. No abnormality to explain back or flank pain.
--- NOTE | 2019-07-15 11:45 | ER ---
Nurse's Notes [facility] Name: Juanpablo Gorman Age: 64 yrs Sex: Female : 1955 Arrival Date: 07/15/2019 Time: 09:12 Bed 13 Private MD: Diagnosis: Urinary tract infection, site not specified;Sciatica, right side Presentation: 07/15 09:14 Presenting complaint: EMS states: Mid back pain and foul smelling dark urine x 2 days. hb Transition of care: patient was not received from another setting of care. Onset of symptoms was July 14, 2019. Risk Assessment: Do you want to hurt yourself or someone else? Patient reports no desire to harm self or others. Initial Sepsis Screen: Does the patient meet any 2 criteria? No. Patient's initial sepsis screen is negative. Does the patient have a suspected source of infection? No. Patient's initial sepsis screen is negative. Care prior to arrival: IV initiated. 20 GA, in the right antecubital area. 09:14 Method Of Arrival: EMS: [facility] hb 09:14 Acuity: AMY 3 hb Triage Assessment: 10:00 General: Behavior is calm, cooperative, appropriate for age. ch Historical: - Allergies: 09:16 Cefuroxime Sodium; hb 09:16 Hydrocodone-Acetaminophen; hb 09:16 Morphine; hb 09:16 Topamax; hb 09:16 Lyrica; hb - Home Meds: 09:16 amitriptyline 25 mg Oral tab 75 mg nightly [Active]; carbidopa-levodopa 25-100 mg Oral hb tab 1 tab 3 times per day [Active]; Cerefolin NAC (algal oil) 6 mg-600 mg- 2 mg-90.314 mg Oral tab daily [Active]; duloxetine 60 mg Oral cpDR 1 cap twice a day [Active]; gabapentin 300 mg Oral cap 2 caps 3 times per day [Active]; pantoprazole 40 mg Oral TbEC 1 tab once daily [Active]; propranolol 10 mg Oral tab 1 tab daily [Active]; red yeast rice 600 mg Oral cap 2 cap daily [Active]; - Immunization history:: Adult Immunizations up to date. - Social history:: Smoking status: Patient/guardian denies using tobacco. - Ebola Screening: : No symptoms or risks identified at this time. Screenin:59 Abuse screen: Denies threats or abuse. Denies injuries from another. Nutritional ch screening: No deficits noted. Tuberculosis screening: No symptoms or risk factors identified. Fall Risk None identified. Assessment: 09:53 General: Appears in no apparent distress. uncomfortable. Pain: Complains of pain in ch back and right leg and right flank Pain currently is 10 out of 10 on a pain scale. Pain began suddenly. Respiratory: Airway is patent Respiratory effort is even, unlabored, Breath sounds are clear bilaterally. Derm: Skin is pink, warm \T\ dry. 11:05 Reassessment: Patient appears in no apparent distress at this time. Patient and/or ch family updated on plan of care and expected duration. Pain level reassessed. pt reports increase in pain after CT. 11:05 Neuro: Reports paresthesias in left leg pt states L leg ios constantly weak and nearly ch immobile weakness. Cardiovascular: No deficits noted. GI: No signs and/or symptoms were reported involving the gastrointestinal system. 11:59 Reassessment: Patient appears in no apparent distress at this time. Patient and/or ch family updated on plan of care and expected duration. Pain level reassessed. Patient is alert, oriented x 3, equal unlabored respirations, skin warm/dry/pink. Patient states feeling better. Patient states symptoms have improved. Vital Signs: 09:16 BP 121 / 75; Pulse 89; Resp 16; Temp 98.4; Pulse Ox 98% ; Weight 86.18 kg; Height 5 ft. hb 4 in. (162.56 cm); Pain 9/10; 11:05 BP 110 / 68; Pulse 84; Resp 16; Temp 98.1; Pulse Ox 99% on R/A; Pain 8/10; ch 11:34 BP 123 / 71; Pulse 78; Resp 18; Temp 97.9(O); Pulse Ox 97% on R/A; jb1 09:16 Body Mass Index 32.61 (86.18 kg, 162.56 cm) hb ED Course: 09:12 Patient arrived in ED. bd 09:15 Triage completed. hb 09:16 Arm band placed on. hb 09:28 Nakul Santana PA is PHCP. [facility] 09:28 Chidi Kaiser MD is Attending Physician. [facility] 09:38 Michelle Iverson, RN is Primary Nurse. 09:53 Patient has correct armband on for positive identification. Placed in gown. Bed in low ch position. Call light in reach. Side rails up X 1. Warm blanket given. 09:53 Maintain EMS IV. Dressing intact. Good blood return noted. Site clean \T\ dry. Gauge \T\ site: 18R AC. 10:32 Pulse ox on. NIBP on. ch 10:32 No provider procedures requiring assistance completed. Straight cath inserted, using sterile technique, 16 Fr. Returned clear yellow urine. Patient tolerated well. 10:47 CT Abd/Pelvis - IV Contrast Only In Process Unspecified. EDMS 11:59 No apparent distress. Resting quietly. 11:59 IV discontinued, intact, bleeding controlled, No redness/swelling at site. Pressure dressing applied. Administered Medications: 09:52 Drug: fentaNYL (PF) 50 mcg Route: IVP; Site: right antecubital; 10:31 Follow up: Response: No adverse reaction; Pain is decreased 09:52 Drug: Zofran 4 mg Route: IVP; Site: right antecubital; 10:31 Follow up: Response: No adverse reaction 11:04 Drug: Valium 2 mg Route: IVP; Site: right antecubital; Outcome: 11:44 Discharge ordered by . [facility] 11:59 Discharged to 11:59 Discharged to home via wheelchair, with family. 11:59 Condition: stable 11:59 Discharge instructions given to patient, family, Instructed on discharge instructions, follow up and referral plans. medication usage, Demonstrated understanding of instructions, follow-up care, medications, Prescriptions given X 1. 12:00 Patient left the ED. Addendum: 07/20/2019 18:12 Addendum: Culture Results: Positive urine culture. Phone call Attempt #1 no answer , i w left voice mail with call back number. Signatures: Dispatcher [employer] EDMS Slim Jade Barbara bd Hammond, Christina, RN RN Nakul Santana PA PA jmm Williams, Irene, RN RN Megan Degroot RN RN Corrections: (The following items were deleted from the chart) 07/15 11:06 11:05 Neuro: No deficits noted. ch ch
--- NOTE | 2019-07-15 11:46 | EDPHYS ---
Physician Documentation [facility] Name: Juanpablo Gorman Age: 64 yrs Sex: Female : 1955 Arrival Date: 07/15/2019 Time: 09:12 Bed 13 Private MD: ED Physician Chidi Kaiser HPI: 07/15 09:36 This 64 yrs old Female presents to ER via EMS with complaints of Urinary jmm Problem. 09:36 The patient complains of pain in the right flank. Onset: The symptoms/episode jmm began/occurred today. Modifying factors: The symptoms are alleviated by nothing. the symptoms are aggravated by movement. Associated signs and symptoms: Pertinent positives: dysuria, pain radiating to right lower extremity, Pertinent negatives: fever. This is a 64 year old female with a history of parkinsons that presents to the ED with complaints of right sided flank pain which radiates down her right leg. Denies vomiting or diarrhea. Patient localizes her pain to her "kidney" Denies fever chills. Family is concerned the patient's baclofen pump is not working correctly. . Historical: - Allergies: 09:16 Cefuroxime Sodium; hb 09:16 Hydrocodone-Acetaminophen; hb 09:16 Morphine; hb 09:16 Topamax; hb 09:16 Lyrica; hb - Home Meds: 09:16 amitriptyline 25 mg Oral tab 75 mg nightly [Active]; carbidopa-levodopa 25-100 mg Oral hb tab 1 tab 3 times per day [Active]; Cerefolin NAC (algal oil) 6 mg-600 mg- 2 mg-90.314 mg Oral tab daily [Active]; duloxetine 60 mg Oral cpDR 1 cap twice a day [Active]; gabapentin 300 mg Oral cap 2 caps 3 times per day [Active]; pantoprazole 40 mg Oral TbEC 1 tab once daily [Active]; propranolol 10 mg Oral tab 1 tab daily [Active]; red yeast rice 600 mg Oral cap 2 cap daily [Active]; - Immunization history:: Adult Immunizations up to date. - Social history:: Smoking status: Patient/guardian denies using tobacco. - Ebola Screening: : No symptoms or risks identified at this time. ROS: 09:36 Constitutional: Negative for fever, chills, and weight loss, Cardiovascular: Negative jmm for chest pain, palpitations, and edema, Respiratory: Negative for shortness of breath, cough, wheezing, and pleuritic chest pain. 09:36 Back: Positive for pain with movement, flank pain. 09:36 MS/extremity: Positive for pain. 09:36 All other systems are negative. Exam: 09:36 Constitutional: This is a well developed, well nourished patient who is awake, alert, jmm and in no acute distress. Head/Face: atraumatic. Eyes: EOMI, no conjunctival erythema appreciated ENT: Moist Mucus Membranes Neck: Trachea midline, Supple Chest/axilla: Normal chest wall appearance and motion. Cardiovascular: Regular rate and rhythm. No edema appreciated Respiratory: Normal respirations, no respiratory distress appreciated 09:36 Abdomen/GI: Inspection: abdomen appears normal, Bowel sounds: normal, Palpation: abdomen is soft and non-tender. 09:36 Back: CVA tenderness, that is mild, is noted on the right. 09:36 Musculoskeletal/extremity: ROM: intact in all extremities. 09:36 Skin: Appearance: Color: normal in color. 09:36 Neuro: Orientation: is normal, Mentation: is normal, Memory: is normal. 09:36 Psych: Behavior/mood is pleasant, cooperative. Vital Signs: 09:16 BP 121 / 75; Pulse 89; Resp 16; Temp 98.4; Pulse Ox 98% ; Weight 86.18 kg; Height 5 ft. hb 4 in. (162.56 cm); Pain 9/10; 11:05 BP 110 / 68; Pulse 84; Resp 16; Temp 98.1; Pulse Ox 99% on R/A; Pain 8/10; ch 11:34 BP 123 / 71; Pulse 78; Resp 18; Temp 97.9(O); Pulse Ox 97% on R/A; jb1 09:16 Body Mass Index 32.61 (86.18 kg, 162.56 cm) hb MDM: 09:34 Patient medically screened. [facility] 11:35 Data reviewed: vital signs, nurses notes. [facility] 11:41 Data reviewed: lab test result(s), radiologic studies, CT scan. Counseling: I had a [facility] detailed discussion with the patient and/or guardian regarding: the historical points, exam findings, and any diagnostic results supporting the discharge/admit diagnosis, lab results, radiology results, the need for outpatient follow up, to return to the emergency department if symptoms worsen or persist or if there are any questions or concerns that arise at home. ED course: Pain relieved in the ED. Family states patient has not filled rx for UTI. Encouraged to fill rx for uti treatment. Valium appeared to relieved pain. Pain most likely due to sciatica. Extensor hallucis longus intact. Will follow up with neuro for further evaluation. Otherwise given strict return precautions, family understood and agrees with the plan of care. . 07/15 09:34 Order name: Basic Metabolic Panel; Complete Time: 10:36 [facility] 07/15 09:34 Order name: CBC with Diff; Complete Time: 10:36 [facility] 07/15 09:34 Order name: Creatinine for Radiology; Complete Time: 10:36 [facility] 07/15 09:34 Order name: Hepatic Function; Complete Time: 10:36 [facility] 07/15 09:34 Order name: Lipase; Complete Time: 10:36 [facility] 07/15 09:35 Order name: Urine Microscopic Only; Complete Time: 11:10 [facility] 07/15 09:34 Order name: IV Saline Lock; Complete Time: 09:53 [facility] 07/15 09:34 Order name: Labs collected and sent; Complete Time: 09:53 [facility] 07/15 09:35 Order name: Urine Culture [facility] 07/15 09:35 Order name: CT Abd/Pelvis - IV Contrast Only; Complete Time: 11:16 [facility] 07/15 10:17 Order name: Urine Dipstick--Ancillary (enter results); Complete Time: 11:00 07/15 09:35 Order name: Urine Dipstick-Ancillary (obtain specimen); Complete Time: 10:31 [facility] Administered Medications: 09:52 Drug: fentaNYL (PF) 50 mcg Route: IVP; Site: right antecubital; ch 10:31 Follow up: Response: No adverse reaction; Pain is decreased ch 09:52 Drug: Zofran 4 mg Route: IVP; Site: right antecubital; ch 10:31 Follow up: Response: No adverse reaction ch 11:04 Drug: Valium 2 mg Route: IVP; Site: right antecubital; ch Disposition: 12:04 Co-signature as Attending Physician, Chidi Kaiser MD I agree with the assessment and kdr plan of care. Disposition: 07/15/19 11:44 Discharged to Home. Impression: Urinary tract infection, site not specified, Sciatica, right side. - Condition is Stable. - Discharge Instructions: Sciatica, Urinary Tract Infection, Adult. - Prescriptions for Tylenol- Codeine #3 300-30 mg Oral Tablet - take 1 tablet by ORAL route every 6 hours As needed; 20 tablet. - Medication Reconciliation Form, Thank You Letter, Antibiotic Education, Prescription Opioid Use form. - Follow up: Private Physician; When: 2 - 3 days; Reason: Recheck today's complaints, Continuance of care, Re-evaluation by your physician. Signatures: Dispatcher [employer] EDMS Michelle Iverson RN RN ch Chidi Kaiser MD MD kdr Mickail, Joel, PA PA jmm Baxter, Heather, RN RN Corrections: (The following items were deleted from the chart) 12:00 11:44 07/15/2019 11:44 Discharged to Home. Impression: Urinary tract infection, site ch not specified; Sciatica, right side. Condition is Stable. Forms are Medication Reconciliation Form, Thank You Letter, Antibiotic Education, Prescription Opioid Use. Follow up: Private Physician; When: 2 - 3 days; Reason: Recheck today's complaints, Continuance of care, Re-evaluation by your physician. aly
[2019-07-15 12:08] VITALS: BP 123/71; TEMP 97.9; O2SAT 97
== END 2019-07-15 12:00 | disposition home or self-care (01) ==
LOC: ER 09:09
DX: N39.0 Urinary tract infection, site not specified (principal); M54.31 Sciatica, right side; Z88.5 Allergy status to narcotic agent; Z88.6 Allergy status to analgesic agent; Z88.8 Allergy status to other drugs, medicaments and biological substances
CPT/HCPCS: 87088; 85025; 87086; 80048; 36415; 80076; 87077; 87186; 83690; 74177; 51702; 96375; 96374; 99284; Q9967; J3360; J3010; J2405; 81003; 81015

== ENCOUNTER 2020-08-26 11:08 | Emergency (ER) | payer OTHER ==
--- OUTSIDE RECORDS SUMMARY | 2020-08-26 11:11 | XMS REPORT | Clinical Summary ---
:1955 Author Organization [facility] Address [address] [place] [address] Care Team Providers Name Role Phone Yaneth Fernandes PA-C Primary Care Provider Allergies Active Allergy Reactions Severity Noted Date Comments Hydrocodone Other (See Comments) 03/25/2019 "FEELS SKIN CRAWLING ALL OVER MY BODY" PER PT Pregabalin Other (See Comments) 03/25/2019 GAINS W EIGHT QUICKLY PER PT Morphine Shortness Of Breath High 04/11/2019 "quits b reathing" Topiramate Other (See Comments) 03/25/2019 BRUISIN G ALL OVER PER PT Medications Medication Sig Dispensed Refills Start Date End Date Status sulfamethoxazole/tri Take by mouth. 0 Active methoprim (BACTRIM ORAL) propranolol Take 10 mg by 0 Acti ve (INDERAL) 10 MG mouth 2 (two) tablet times a day. pantoprazole Take 40 mg by 0 Act elmira (PROTONIX) 40 MG EC mouth daily. tablet diazePAM (VALIUM) 5 Take 5 mg by mouth 0 Active MG tablet every 6 (six) hours as needed for anxiety (Restless Leg Syndrome). DULoxetine Take 60 mg by 0 Activ e (CYMBALTA) 60 MG mouth 2 (two) capsule times a day. red yeast rice 600 Take by mouth. 0 Active mg tablet busPIRone (BUSPAR) Take 30 mg by 0 Active 30 MG tablet mouth 2 (two) times a day. estradioL (ESTRACE) Apply nightly for 3 weeks, then 3 times per stephanie gao. 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 Recurrent UTI 01/10/2019 Urge incontinence 01/10/2019 Overview: Timed/doube voiding Myrbetriq 50mg trial again Treat infection if present F/U Esequiel 6wks - botox brochure and bl adder matters given Atrophic vaginitis 01/10/2019 Encounters Date Type Specialty Care Team Description 09/28/2019 Office Visit Urology Lorie Iraheta M D Urge incontinence (Primary Dx); Sukhi Arrieta Recurrent UT I; IVAN Ovalle Atrophic vagini tis 09/28/2019 Travel 09/13/2019 Telephone Urology Lorie Iraheta MD after 08/26/2019 Immunizations Name Administration Dates Next Due FLUCELVAX QUAD PF 04/15/2019 Surgical History Surgery Date Site/Laterality Comments EXPLORATORY LAPAROTOMY HYSTERECTOMY W/BSO CERVICAL DISC ARTHROPLASTY C5, C 6, C7 CHOLECYSTECTOMY ARTHROSCOPY SHOULDER W/ OPEN Right ROTATOR CUFF REPAIR SHOULDER SURGERY Left BONE SPUR TRIGGER FINGER RELEASE Right THUMB APPENDECTOMY WISDOM TOOTH EXTRACTION INSERTION OR REVISION, PUMP, 03/31/2019 Spine Lumbar/N/A Pr ocedure: INTRATHECAL INTRATHECAL INJECTION / IT B ACLOFEN TRIAL; Surgeon: Chhaya Winston MD; Loca tion: [facility] Main OR; Servic e: Neurosurgery; L aterality: N/A; INSERTION OR REVISION, PUMP, 04/14/2019 Right Pro cedure: INTRATHECAL PUMP INTRATHECAL IMPLANTATION, BA CLOFEN 1000 mcg/mL, TOTAL VO LUME 40 Ml; Surgeon: Chhaya Winston MD; Location: [facility] Main OR; Service: Ne urosurgery; Laterality: Rig ht; Medical devices from this surgery are in t he Implants section. Medical History Medical History Date Comments UTI (urinary tract infection) 03/2019 ON BACTRIM TO BE FINISHED 04/08/2019; Stiff person syndrome Migraines GERD (gastroesophageal reflux disease) Anxiety Depression Restless leg syndrome Up-to-date with immunizations PER PT Wears glasses READERS Exercise tolerance finding NO FORMAL EXE RCISE; LEG IFTS AND KNEE BENDS; WALKS ON A WA LKER 3 TIMES A WEEK MUCH CAN WITH BACK PAIN Uses walker Family History Medical History Relation Name Comments Melanoma Father ALS Maternal Aunt ALS Maternal Grandfather ALS Maternal Grandmother ALS Maternal Uncle Other Mother ALS, STIFF PERSO N SYNDROME Relation Name Status Comments Father Maternal Aunt Maternal Grandfather Maternal Grandmother Maternal Uncle Mother Social History Tobacco Use Types Packs/Day Years Used Date Former Smoker Cigarettes 2 Quit: 1979 Smokeless Tobacco: Never Used Alcohol Use Drinks/Week oz/Week Comments Not Currently Sex Assigned at Date Recorded Not on file Last Filed Vital Signs Not on file Plan of Treatment Health Maintenance Due Date Last Done Comments COVID-19 VACCINE (1 of 2) 1971 HEPATITIS C SCREENING 1973 CERVICAL CANCER SCREENING 1976 BREAST CANCER SCREENING 2005 COLONOSCOPY SCREENING 2005 SHINGLES VACCINES (#1) 2005 INFLUENZA VACCINE 02/18/2020 04/15/2019 65+ PNEUMOCOCCAL VACCINE (1 of 1 - PPSV23) 2020 Implants Implanted Type Area Gas Distribution [employer] Emergency Clerk Device Shelf Model / Identifier Expiration Serial / Date Lot Pump Infsn Synchromed Ii W/ Fltr Sut Loo p Prgrmbl Rsvr 40ml - [id number] - [id number] Neurosurgical Right: [employer] 08/10/2020 [id number] / Implanted: Qty: 1 on 04/14/2019 by Chhaya Winston MD at [facility] Implants N/A NEUROMODULATION [id number] / LOT NA Titanium Description:titanium at C5 adn C6 Procedures Procedure Name Priority Date/Time Associated Comments Diagnosis URINALYSIS, Routine 10/03/2019 2:20 PM Urge inconti nence Results for this AUTOMATED WITH CDT Recurrent UTI procedure ar e in MICROSCOPY the results section. URINE CULTURE Routine 10/03/2019 2:20 PM Urge inconti nence Results for this CDT Recurrent UTI procedure are in the results section. after 08/26/2019 Results Urinalysis, automated with microscopy (10/03/2019 2:20 PM CDT) Color, UA YELLOW YELLOW [facility] [place] Appearance CLEAR CLEAR [facility] [place] Specific gravity, 1.013 1.001 - 1.035 [facility] urine [place] pH, urine < OR = 5.0 5.0 - 8.0 [facility] [place] Glucose, urine NEGATIVE NEGATIVE [facility] [place] Bilirubin, UA NEGATIVE NEGATIVE [facility] [place] Ketones, UA NEGATIVE NEGATIVE [facility] [place] Occult blood, urine NEGATIVE NEGATIVE [facility] [place] Protein, UA NEGATIVE NEGATIVE [facility] [place] Nitrite, UA POSITIVE (A) NEGATIVE [facility] [place] Leukocyte esterase, 1+ (A) NEGATIVE [facility] UA [place] WBC, UA 6-10 (A) < OR = 5 /HPF [facility] [place] RBC, UA 0-2 < OR = 2 /HPF [facility] [place] Squamous epithelial 0-5 < OR = 5 /HPF [facility] cells, UA [place] Bacteria, UA MANY (A) NONE SEEN /HPF [facility] [place] Hyaline casts, UA NONE SEEN NONE SEEN /LPF [facility] [place] Specimen Urine Resulting Agency Comment Performing Organization Information: Site ID: [id number] Name: [facility] Address: [address] [place] [id number] Director: Gucci Gardiner Performing Organization Address [facility] Phon e Number [facility] [address] [phone] Urine culture (10/03/2019 2:20 PM CDT) Urine culture SEE NOTE [facility] Comment: [place] CULTURE, URINE, ROUTINE Micro Number: [id number] Test Status: Final Specimen Source: URINE Specimen Quality: Adequate Result: Upon further incubation: Three or more organisms present, each greater than 10,000 CFU/m L. May represent normal thais contamination from external genitalia. No further testing is required. Specimen Urine Resulting Agency Comment Performing Organization Information: Site ID: [id number] Name: [facility] Address: [address] [place] [phone] Director: Gucci Gardiner Performing Organization Address City/[facility] Phon e Number [facility] [address] [phone] after 08/26/2019 Insurance Payer Benefit Plan / Subscriber ID Effective Dates Phone Addre ss Type Group MEDICARE MEDICARE PART A [id number] 2014-Present [place], [place] Medicare AND B Advance Directives For more information, please contact: [phone] Type Date Recorded Patient Contact Lens Inspector Explanati on Advance Directives, 03/25/2019 1:39 PM Living Will and Medical Power of Director Cpg Advance Directives, 03/31/2019 12:00 AM advance d irectives Living Will and Medical Power of Director Cpg
--- OUTSIDE RECORDS SUMMARY | 2020-08-26 11:11 | XMS REPORT | Clinical Summary ---
:1955 Author Organization [facility] Address [address] [place] [address] Care Team Providers Name Role Phone Jarrett Franklin Primary Care Provider Allergies Active Allergy Reactions Severity Noted Date Comments Hydrocodone-Acetaminophen 08/22/2017 Morphine Other (See Comments) 08/22/2017 Headach e, flushing Topiramate 08/22/2017 Medications Medication Sig Dispensed Refills Start Date End Date Status DULoxetine Take 60 mg by mouth 0 Active (CYMBALTA) 60 MG 2 (two) times daily. capsule pantoprazole Take 40 mg by mouth 0 Active (PROTONIX) 40 MG daily. tablet enoxaparin Inject 0.4 mLs (40 30 Syringe 1 09/03/2017 Active (LOVENOX) 40 mg/0.4 mg total) mL Syrg subcutaneously daily. Active Problems Problem Noted Date Respiratory failure requiring intubation 08/24/2017 Acute encephalopathy 08/24/2017 Neuropathy 08/24/2017 Aspiration pneumonia 08/22/2017 Altered mental status 08/22/2017 Hypoxemia 08/22/2017 Social History Tobacco Use Types Packs/Day Years Used Date Former Smoker Smokeless Tobacco: Former User Sex Assigned at Date Recorded Not on file Last Filed Vital Signs Not on file Plan of Treatment Health Maintenance Due Date Last Done Comments BREAST CANCER SCREENING 1955 COLON CANCER SCREENING COLONOSCOPY 1955 CERVICAL CANCER SCREENING PAP ONLY (Age 21-65) 1976 MEDICARE ANNUAL WELLNESS (YEAR 2 or FIRST YEAR if no 04/20/2015 IPPE) INFLUENZA VACCINE (#1) 2020 PNEUMOCOCCAL 65+ YRS (1 of 1 - [id number]) 2020 LIPID PANEL 08/26/2020 08/26/2017 Results Not on fileafter 08/26/2019 Advance Directives For more information, please contact: [phone] Code Status Date Activated Date Inactivated Comments Full Code 08/22/2017 6:38 PM 09/03/2017 8:26 AM This code status was determined by: Patient
--- OUTSIDE RECORDS SUMMARY | 2020-08-26 11:15 | XMS REPORT | Continuity of Care Document ---
:1955 Author Organization [facility] t Address [address] [place] [address] Care Team Providers Name Role Phone RigobertoJarrett Primary Care Physician Glo HAYS Attending Clinician Yamile Arrieta NP Attending Clinician MAIRA Attending Clinician Unavailable ANGEL Attending Clinician Unavailable HALLE Attending Clinician Unavailable PEDCLARA Attending Clinician Unavailable CHERYL BRITTON Attending Clinician Unavailable ANGEL Admitting Clinician Unavailable HALLE Admitting Clinician Unavailable PEDDAMATHAM Admitting Clinician Unavailable CHERYL BRITTON Admitting Clinician Unavailable Payers Payer Name Policy Type Policy Effective Date Expiration Date Sour ce Number MEDICAREMEDICARE PART [id number] radhika Rula AND 00:00:00 Mu-Ism [id number]/07/2013 [facility] Condition Condition Condition Status Onset Resolution Last Treating Co mments Source Name Details Category Date Date Treatment Clinician Date 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 00:00: st 00 Recurrent Recurrent Disease Active Ronaldo ston UTI UTI 6-24 Methodi 00:00: st 00 Urge Urge Disease Active Overview: [place] incontinen incontinen 6-24 Timed/zac Methodi ce ce 00:00: be st 00 voidingMy rbetriq 50mg trial againTrea t infection if presentF/ U Khavari 6wks - botox brochure and bladder matters given 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 6-24 Meth robbie 00:00: st 00 Respirator Respirator Disease Active [facility] y failure y failure 2-05 [facility] - requiring requiring 00:00: Medi marcus intubation intubation 00 Ce nter Acute Acute Disease Active [facility] encephal[facility] encephalop 2-05 Sravani kes - athy athy 00:00: Medical 00 [place] Neuropathy Neuropathy Disease Active [facility] - [facility] 00 [place] Aspiration Aspiration Disease Active [facility] pneumonia pneumonia 2-03 [facility] - 00:00: Medical 00 [place] Altered Altered Disease Active [facility] mental mental 2-03 [facility] - status status 00:00: Medical 00 [place] Hypoxemia Hypoxemia Disease Active [facility] 2[facility] - 00:00: Medical 00 [place] Allergies, Adverse Reactions, Alerts Allergy Allergy Status Severity Reaction(s) Onset Inactive Treating Comm ents Source Name Type Date Date Clinician Morphine Propensi Active Shortness Of "quits [place] ty to Breath 04-11 breathing Methodi adverse 00:00: " st reaction 00 s to drug Hydrocod Propensi Active Other (See "FEELS [place] one ty to Comments) 9 SKIN Methodi adverse 00:00: CRAWLING st reaction 00 ALL OVER s to MY BODY" drug PER PT [place]reg[place]al Propensi Active Other (See GAINS [place] in ty to Comments) 9 WEIGHT Methodi adverse 00:00: QUICKLY st reaction 00 PER PT s to drug Topirama Propensi Active Other (See BRUISING [place] te ty to Comments) 9 ALL OVER Metho di adverse 00:00: PER PT st reaction 00 s to drug Hydrocod Propensi Active [facility] one-Acet ty to 203 [facility] - aminophe adverse 00:00: Medical n reaction 00 Center s Morphine Propensi Active Other (See Headache, [facility] ty to Comments) 2 [place] [facility] - adverse 00:00: Medical reaction 00 Center s Topirama Propensi Active [facility] te ty to 2-03 [facility] - adverse 00:00: Medical reaction 00 Center s Family History Family Member Diagnosis Comments Start Date Stop Date Source Natural father Melanoma [place] [facility] thodist Maternal aunt ALS [place] Met charles Maternal grandfather ALS Peg radhika Mu-Ism Maternal grandmother ALS Peg garrido Mu-Ism Maternal uncle ALS [place] thodist Natural mother Other [place] Me fuentesodist Social History Social Habit Start Date Stop Date Quantity Comments Source History of tobacco Current smoker Eric harmon Mu-Ism use Sex Assigned At [facility] ethodist Cigarettes smoked 2019-09-28 2019-09-28 Juan Pablo Ford current (pack per 00:00:00 00:00:00 day) - Reported Tobacco use and 2019-09-28 2019-09-28 Never used [facility] ethodist exposure 00:00:00 00:00:00 Alcohol intake 2019-09-28 2019-09-28 Ex-drinker [facility] thodist 00:00:00 00:00:00 (finding) Smoking Status Start Date Stop Date Source Former smoker 2019-09-28 00:00:00 2019-09-28 00:00:00 [place] [facility]-Ism Medications Ordered Filled Start Stop Current Ordering Indication Dosage Frequency Signature Comments Components Source Medication Medication Date Date Medication? Clinician (SIG) Name Name estradioL 2020- No Atrophic Apply Eric harmon (ESTRACE) 09-27 vaginitis nightly M ethodi 0.01 % (0.1 00:00: 23:[address] mg/gram) 00 :00 weeks, vaginal then 3 cream times per week.DO NOT USE APPLICATOR sulfamethox Yes Take by Ronaldo laguna azole/trime 04-15 mouth. Method i thoprim 12:42: st (BACTRIM 36 ORAL) propranolol Yes 10mg Q.5D Take 10 mg [place] (INDERAL) 04-15 by mouth 2 Meth robbie 10 MG 12:42: (two) st tablet 36 times a day. pantoprazol Yes 40mg QD Take 40 mg [place] e 04-15 by mouth Methodi (PROTONIX) 12:42: daily. st 40 MG EC 36 tablet diazePAM Yes 5mg Q6H Take 5 mg Peg garrido (VALIUM) 5 04-15 by mouth Metho di MG tablet 12:42: every 6 st 36 (six) hours as needed for anxiety (Restless Leg Syndrome). DULoxetine Yes 60mg Q.5D Take 60 mg [place] (CYMBALTA) 04-15 by mouth 2 Met hodi 60 MG 12:42: (two) st capsule 36 times a day. red yeast Yes Take by Marissa on rice 600 mg 27 mouth. Method i tablet 12:42: st 36 busPIRone Yes 30mg Q.5D Take 30 mg [place] (BUSPAR) 30 04-15 by mouth 2 Me thodi MG tablet 12:42: (two) st 36 times a day. DULoxetine Yes 60mg Q.5D Take [address] (CYMBALTA) 2-15 by mouth 2 [place] es - 60 MG 06:26: (two) Medical capsule 25 times Center daily. pantoprazol Yes 40mg QD Take [address] e 2-15 by mouth [facility] - (PROTONIX) 06:26: daily. Medic al 40 MG 25 Center tablet enoxaparin Yes 40mg Q24H Inject 0.[address] (LOVENOX) 2-15 mLs (40 mg Luke s - 40 mg/0.4 00:00: total) Medica l mL Syrg 00 subcutaneo Center usly daily. Immunizations Ordered Immunization Filled Immunization Date Status Commen ts Source Name Name AZX MELINDA PF 2019-04-15 [facility] 00:00:00 Mu-Ism Procedures Procedure Date / Time Performed Performing Clinician Sour e URINE CULTURE 2019-10-03 14:20:00 Sukhi Arrieta URINALYSIS, AUTOMATED 2019-10-03 14:20:00 Sukhi Arrieta n Mu-Ism WITH MICROSCOPY Yamile Plan of Care Planned Activity Planned Date Details Comments Source Future Scheduled 2020-08-[address] [address] [facility] - Test 00:00:00 (procedure) [code = [facility] 91709850] Future Scheduled 2020 PNEUMOCOCCAL 65+ Y[facility] - Test 00:00:00 (1 of 1 - [facility] [id number] PCV13) [code = PNEUMOCOCCAL 65+ YRS (1 of 1 - [id number] PCV13)] Future Scheduled 2020 65+ PNEUMOCOCCAL [place] Mu-Ism Test 00:00:00 VACCINE (1 of 1 - PPSV23) [code = 65+ PNEUMOCOCCAL VACCINE (1 of 1 - PPSV23)] Future Scheduled 2020-03-20 INFLUENZA VACCINE (#1) [facility] - Test 00:00:00 [code = INFLUENZA Medical Ce nter VACCINE (#1)] Future Scheduled 2020-02-18 INFLUENZA VACCINE [place] [facility] Test 00:00:00 [code = INFLUENZA VACCINE] Future Scheduled 2015-04-[address] [facility] - Test 00:00:00 WELLNESS (YEAR 2 or Medical Center FIRST YEAR if no IPPE) [code = MEDICARE ANNUAL WELLNESS (YEAR 2 or FIRST YEAR if no IPPE)] Future Scheduled 2005 BREAST CANCER [place] Me thodist Test 00:00:00 SCREENING [code = BREAST CANCER SCREENING] Future Scheduled 2005 COLONOSCOPY SCREENING [place] [facility] Test 00:00:00 [code = COLONOSCOPY SCREENING] Future Scheduled 2005 SHINGLES VACCINES (#1) [place] [facility] Test 00:00:00 [code = SHINGLES VACCINES (#1)] Future Scheduled [address] [facility] - Test 00:00:00 [facility] cervix (procedure) [code = 851606517] Future Scheduled 1976 Screening for [facility] thodist Test 00:00:00 malignant neoplasm of cervix (procedure) [code = 758524285] Future Scheduled 1973 Hepatitis C screening [place] [facility] Test 00:00:00 (procedure) [code = 667811326] Future Scheduled 1971 COVID-19 VACCINE (1 of [place] [facility] Test 00:00:00 2) [code = COVID-19 VACCINE (1 of 2)] Future Scheduled [address] [place] [facility] - Test 00:00:00 malignant neoplasm of Medica l Center breast (procedure) [code = 412907479] Future Scheduled [address] [place] [facility] - Test 00:00:00 malignant neoplasm of Medica l Center colon (procedure) [code = 336357710] Encounters Start End Encounter Admission Attending Care Care Encounter Source Date/Time Date/Time Type Type Clinicians Facility Department ID 2019-09-28 2019-09-28 Outpatient GLO [facility] [id number] [place] 00:00:00 00:00:00 YUSRA [address] 2019-04-17 2019-04-17 Emergency ROHIT RAO [facility] [id number] [place] 00:00:00 00:00:00 934 Method i 2019-04-14 2019-04-15 Outpatient JOSE ORTIZ [facility] [id number] [place] 00:00:00 00:00:00 042 Method i 2019-03-31 2019-03-31 Outpatient HALLE [facility] [id number] [place] 00:00:00 00:00:00 IRFAN 554 Method i 2017-10-14 2017-10-14 Outpatient C PEDDAMATHAM [facility] [id number] [place] 05:19:00 08:40:00 , KUMARA Medic al Center Results Test Description Test Time Test Comments Results Result Comments Source Urine culture 2019-10-05 16:01:00 Test Item Value Reference Range Interpretation Comme nts Urine culture (test code SEE NOTE C ULTURE, URINE, ROUTINE = 630-4) Micro Number: [id number] Test Status: Final Specimen Source : URINE Specimen Qualit y: Adequate Result: Upon further incubat ion: Three or more organisms prese nt, each greater than 10,000 CFU /mL. May represent ilene l thais co ntamination from external g enitalia. No further testing is requ ired. RAC (test code = RAC) Performing Organization Information: Site ID: [facility] Address: [address] [place] [id number] Director: Faby Gardiner [place] MethodistUrinalysis, automated with [id number] 16:01:00 Test Item Value Reference Range Interpretation Comments Color, UA (test code = YELLOW YELLOW 5778-6) Appearance (test code = CLEAR CLEAR 5767-9) Specific gravity, urine 1.013 1.001-1.035 (test code = 5811-5) pH, urine (test code = < OR = 5.0 5.0-8.0 5803-2) Glucose, urine (test NEGATIVE NEGATIVE code = 66105-0) Bilirubin, UA (test code NEGATIVE NEGATIVE = 5770-3) Ketones, UA (test code = NEGATIVE NEGATIVE 1524-8) Occult blood, urine NEGATIVE NEGATIVE (test code = 5794-3) Protein, UA (test code = NEGATIVE NEGATIVE 33047-7) Nitrite, UA (test code = POSITIVE NEGATIVE A 5802-4) Leukocyte esterase, UA 1+ NEGATIVE A (test code = 5799-2) WBC, UA (test code = 6-10 < OR = 5 /HPF A 5821-4) RBC, UA (test code = 0-2 < OR = 2 /HPF 78814-5) Squamous epithelial 0-5 < OR = 5 /HPF cells, UA (test code = 03001-6) Bacteria, UA (test code MANY NONE SEEN /HPF A = 5769-5) Hyaline casts, UA (test NONE SEEN NONE SEEN /LPF code = 5796-8) RAC (test code = RAC) Performing Organization Information: Site ID: RGA [facility]: [facility] Address: [address] [place] [phone] Director: Faby Gardiner Lab Interpretation (test Abnormal code = 77600-1) [place] MethodistBASI METABOLIC [id number] 06:46:00 Test Item Value Reference Range Interpretation Comments GLUCOSE (test code = 06D) 119 mg/dL 75-100 H SODIUM (test code = 01A) 138 mmol/L 136-145 POTASSIUM (test code = 01B) 3.3 mmol/L 3.6-5.1 L CHLORIDE (test code = 04A) 103 mmol/L 98-107 CO2 (test code = 02A) 26 mmol/L 22-32 ANION GAP (test code = ANG) 12.3 mmol/L BUN (test code = 05D) 7 mg/dL 7-18 CREATININE (test code = 03E) 0.8 mg/dL 0.4-1.1 BUN/CREA (test code = BCR) 9 12-20 L CALCIUM (test code = 09D) 9.3 mg/dL 8.3-9.5 MISCELLANEOUS LAB [id number] 07:56:00 Test Item Value Reference Range Interpretation Comments SCAN RESULT (test code = 5464551) BLOOD [id number] 10:00:00 Test Item Value Reference Range Interpretation Comments CULTURE (BEAKER) (test No growth in 5 days code = 1095) BLOOD [id number] 10:00:00 Test Item Value Reference Range Interpretation Comments CULTURE (BEAKER) (test No growth in 5 days code = 1095) SPUTUM CULTURE + GRAM [id number] 14:34:00 Test Item Value Reference Range Interpretation Comments CULTURE (BEAKER) (test See comment code = 1095) GRAM STAIN RESULT 4+ WBCs (BEAKER) (test code = 1123) GRAM STAIN RESULT 0-5 epithelial cells (BEAKER) (test code = 011019) GRAM STAIN RESULT No organisms seen (BEAKER) (test code = 607494) 2+ YeastNo Normal respiratory thais presentURINE [id number] 09:23:00 Test Item Value Reference Range Interpretation Comments CULTURE (BEAKER) (test code = 1095) No growth BLOOD [id number] 17:00:00 Test Item Value Reference Range Interpretation Comments CULTURE (BEAKER) (test No growth in 5 days code = 1095) BLOOD [id number] 17:00:00 Test Item Value Reference Range Interpretation Comments CULTURE (BEAKER) (test No growth in 5 days code = 1095) RAD, CHEST, 1 VIEW, NON [id number] 11:05:00Reason for exam:->FeverShould this be performed at the bedside?->YesFINAL REPORT Chest one view compared to August 30, 2017 Discussion: There is coarse interstitial prominence with patchy bilateral upper lung opacities overall similar to the prior study. Tracheostomy and right PICC line in place. No effusion or pneumothorax. IMPRESSIONS: No significant change Signed: Remington Sharp Verified Date/Time: 09/02/2017 11:05:47 Reading Location: [facility]iology Reading Room [id number] 02:28:00 Test Item Value Reference Range Interpretation Comments PHOSPHORUS (BEAKER) (test code = 3.7 mg/dL 2.3-4.7 604) [id number] 02:28:00 Test Item Value Reference Range Interpretation Comments MAGNESIUM (BEAKER) (test code = 1.9 mg/dL 1.6-2.6 627) BASIC METABOLIC [id number] 02:28:00 Test Item Value Reference Range Interpretation Comments SODIUM (BEAKER) 135 meq/L 136-145 L (test code = 381) POTASSIUM (BEAKER) 3.4 meq/L 3.5-5.1 L (test code = 379) CHLORIDE (BEAKER) 97 meq/L 98-107 L (test code = 382) CO2 (BEAKER) (test 26 meq/L 22-29 code = 355) BLOOD UREA NITROGEN 15 mg/dL 7-21 (BEAKER) (test code = 354) CREATININE (BEAKER) 0.66 mg/dL 0.57-1.25 (test code = 358) GLUCOSE RANDOM 104 mg/dL 70-105 (BEAKER) (test code = 652) CALCIUM (BEAKER) 8.7 mg/dL 8.4-10.2 (test code = 697) EGFR (BEAKER) (test 91 mL/min/1.73 ESTIMA LULY GFR IS code = 1092) sq m NOT ACCURATE CREATININE CLEARANCE IN PREDICTING GLOMERULAR FILTRATION RATE . ESTIMATED GFR I S NOT APPLICABLE FOR DIALYSIS PATIEN TS. URINALYSIS W/ [id number] 02:26:00 Test Item Value Reference Range Interpretation Comments COLOR (BEAKER) (test code Yellow = 470) CLARITY (BEAKER) (test Hazy code = 469) SPECIFIC GRAVITY UA 1.016 1.001-1.035 (BEAKER) (test code = 468) PH UA (BEAKER) (test code 6.0 5.0-8.0 = 467) PROTEIN UA (BEAKER) (test 20 mg/dL Negative A code = 464) GLUCOSE UA (BEAKER) (test Negative Negative code = 365) KETONES UA (BEAKER) (test 60 mg/dL Negative A code = 371) BILIRUBIN UA (BEAKER) Negative Negative (test code = 462) BLOOD UA (BEAKER) (test Negative Negative code = 461) NITRITE UA (BEAKER) (test Negative Negative code = 465) LEUKOCYTE ESTERASE UA Negative Negative (BEAKER) (test code = 466) UROBILINOGEN UA (BEAKER) 0.2 mg/dL 0.2-1.0 (test code = 463) RBC UA (BEAKER) (test 1 /HPF code = 519) WBC UA (BEAKER) (test 2 /HPF code = 520) MUCUS (BEAKER) (test code Rare = 1574) SQUAMOUS EPITHELIAL 1 /HPF (BEAKER) (test code = 516) HYALINE CASTS (BEAKER) 5 /LPF (test code = 514) AMORPHOUS CRYSTALS Rare (BEAKER) (test code = 1584) SOURCE(BEAKER) (test code Urine, Straight = 6911) Catheter BLOOD GAS, [id number] 02:16:00 Test Item Value Reference Range Interpretation Comments PH ARTERIAL (BEAKER) (test code = 7.47 7.35-7.45 H 383) PCO2 ARTERIAL (BEAKER) (test code 42 mmHg 35-45 = 384) PO2 ARTERIAL (BEAKER) (test code = 266 mmHg 80-90 H 385) O2 SATURATION ARTERIAL (BEAKER) 99.7 % 96.0-97.0 H (test code = 386) HCO3 ARTERIAL (BEAKER) (test code 29 mmol/L 21-29 = 388) BASE EXCESS ARTERIAL (BEAKER) 5.5 mmol/L -2.0-3.0 H (test code = 387) PATIENT TEMPERATURE (BEAKER) (test 38.6 C code = 1818) FIO2 (BEAKER) (test code = 1819) 40.0 % CBC W/PLT COUNT & AUTO [id number] 02:11:00 Test Item Value Reference Range Interpretation Comments WHITE BLOOD CELL COUNT (BEAKER) 11.1 K/ L 3.5-10.5 H (test code = 775) RED BLOOD CELL COUNT (BEAKER) 2.98 M/ L 3.93-5.22 L (test code = 761) HEMOGLOBIN (BEAKER) (test code = 9.2 GM/DL 11.2-15.7 L 410) HEMATOCRIT (BEAKER) (test code = 27.6 % 34.1-44.9 L 411) MEAN CORPUSCULAR VOLUME (BEAKER) 92.6 fL 79.4-94.8 (test code = 753) MEAN CORPUSCULAR HEMOGLOBIN 30.9 pg 25.6-32.2 (BEAKER) (test code = 751) MEAN CORPUSCULAR HEMOGLOBIN CONC 33.3 GM/DL 32.2-35.5 (BEAKER) (test code = 752) RED CELL DISTRIBUTION WIDTH 13.8 % 11.7-14.4 (BEAKER) (test code = 412) PLATELET COUNT (BEAKER) (test 348 K/CU MM 150-450 code = 756) MEAN PLATELET VOLUME (BEAKER) 9.9 fL 9.4-12.3 (test code = 754) NUCLEATED RED BLOOD CELLS 0 /100 WBC 0-0 (BEAKER) (test code = 413) NEUTROPHILS RELATIVE PERCENT 77 % (BEAKER) (test code = 429) LYMPHOCYTES RELATIVE PERCENT 11 % (BEAKER) (test code = 430) MONOCYTES RELATIVE PERCENT 8 % (BEAKER) (test code = 431) EOSINOPHILS RELATIVE PERCENT 3 % (BEAKER) (test code = 432) BASOPHILS RELATIVE PERCENT 0 % (BEAKER) (test code = 437) NEUTROPHILS ABSOLUTE COUNT 8.54 K/ L 1.56-6.13 H (BEAKER) (test code = 670) LYMPHOCYTES ABSOLUTE COUNT 1.19 K/ L 1.18-3.74 (BEAKER) (test code = 414) MONOCYTES ABSOLUTE COUNT (BEAKER) 0.92 K/ L 0.24-0.36 H (test code = 415) EOSINOPHILS ABSOLUTE COUNT 0.33 K/ L 0.04-0.36 (BEAKER) (test code = 416) BASOPHILS ABSOLUTE COUNT (BEAKER) 0.03 K/ L 0.01-0.08 (test code = 417) IMMATURE GRANULOCYTES-RELATIVE 1 % 0-1 PERCENT (BEAKER) (test code = 2801) MR, BRAIN, [id number] 16:32:00FINAL REPORT MRI Brain with and without contrast 09/01/2017 4:29 PM CLINICAL HISTORY: Decreased alertness, eval ischemia, WM disease TECHNIQUE: Multiplanar, multisequence MR imaging of the brain was performed, utilizing the following imaging sequences: Axial T1, T2, FLAIR, GRE, DWI/ADC; sagittal T1; postcontrast axial, sagittal, and coronal T1. COMPARISON: None available. FINDINGS: There is no acute infarct, mass, hematoma, hydrocephalus, extra-axial collection, or abnormal [...] Truong Verified Date/Time: 09/01/2017 16:32:31 Reading Location: [facility] Reading Room MR, SPINE, CERVICAL, [id number] 16:31:00FINAL REPORT MRI of the cervical spine [...] Sharp Verified Date/Time: 09/01/2017 16:31:36 Reading Location: [facility] B1 [id number] Consult Reading Room URINE [id number] 10:49:00 Test Item Value Reference Range Interpretation Comments CULTURE (BEAKER) (test code = 1095) No growth [id number] 04:02:00 Test Item Value Reference Range Interpretation Comments PHOSPHORUS (BEAKER) (test code = 3.9 mg/dL 2.3-4.7 604) [id number] 04:02:00 Test Item Value Reference Range Interpretation Comments MAGNESIUM (BEAKER) (test code = 1.9 mg/dL 1.6-2.6 627) BASIC METABOLIC [id number] 04:02:00 Test Item Value Reference Range Interpretation Comments SODIUM (BEAKER) 141 meq/L 136-145 (test code = 381) POTASSIUM (BEAKER) 3.6 meq/L 3.5-5.1 (test code = 379) CHLORIDE (BEAKER) 103 meq/L 98-107 (test code = 382) CO2 (BEAKER) (test 26 meq/L 22-29 code = 355) BLOOD UREA NITROGEN 16 mg/dL 7-21 (BEAKER) (test code = 354) CREATININE (BEAKER) 0.61 mg/dL 0.57-1.25 (test code = 358) GLUCOSE RANDOM 100 mg/dL 70-105 (BEAKER) (test code = 652) CALCIUM (BEAKER) 8.4 mg/dL 8.4-10.2 (test code = 697) EGFR (BEAKER) (test 99 mL/min/1.73 ESTIMA LULY GFR IS code = 1092) sq m NOT ACCURATE CREATININE CLEARANCE IN PREDICTING GLOMERULAR FILTRATION RATE . ESTIMATED GFR I S NOT APPLICABLE FOR DIALYSIS PATIEN TS. CBC W/PLT COUNT & AUTO [id number] 04:01:00 Test Item Value Reference Range Interpretation Comments WHITE BLOOD CELL COUNT (BEAKER) 11.7 K/ L 3.5-10.5 H (test code = 775) RED BLOOD CELL COUNT (BEAKER) 2.85 M/ L 3.93-5.22 L (test code = 761) HEMOGLOBIN (BEAKER) (test code = 8.4 GM/DL 11.2-15.7 L 410) HEMATOCRIT (BEAKER) (test code = 26.2 % 34.1-44.9 L 411) MEAN CORPUSCULAR VOLUME (BEAKER) 91.9 fL 79.4-94.8 (test code = 753) MEAN CORPUSCULAR HEMOGLOBIN 29.5 pg 25.6-32.2 (BEAKER) (test code = 751) MEAN CORPUSCULAR HEMOGLOBIN CONC 32.1 GM/DL 32.2-35.5 L (BEAKER) (test code = 752) RED CELL DISTRIBUTION WIDTH 14.1 % 11.7-14.4 (BEAKER) (test code = 412) PLATELET COUNT (BEAKER) (test 334 K/CU MM 150-450 code = 756) MEAN PLATELET VOLUME (BEAKER) 10.6 fL 9.4-12.3 (test code = 754) NUCLEATED RED BLOOD CELLS 0 /100 WBC 0-0 (BEAKER) (test code = 413) NEUTROPHILS RELATIVE PERCENT 77 % (BEAKER) (test code = 429) LYMPHOCYTES RELATIVE PERCENT 11 % (BEAKER) (test code = 430) MONOCYTES RELATIVE PERCENT 8 % (BEAKER) (test code = 431) EOSINOPHILS RELATIVE PERCENT 3 % (BEAKER) (test code = 432) BASOPHILS RELATIVE PERCENT 0 % (BEAKER) (test code = 437) NEUTROPHILS ABSOLUTE COUNT 8.99 K/ L 1.56-6.13 H (BEAKER) (test code = 670) LYMPHOCYTES ABSOLUTE COUNT 1.33 K/ L 1.18-3.74 (BEAKER) (test code = 414) MONOCYTES ABSOLUTE COUNT (BEAKER) 0.96 K/ L 0.24-0.36 H (test code = 415) EOSINOPHILS ABSOLUTE COUNT 0.29 K/ L 0.04-0.36 (BEAKER) (test code = 416) BASOPHILS ABSOLUTE COUNT (BEAKER) 0.04 K/ L 0.01-0.08 (test code = 417) IMMATURE GRANULOCYTES-RELATIVE 1 % 0-1 PERCENT (BEAKER) (test code = 2801) BLOOD [id number] 17:00:00 Test Item Value Reference Range Interpretation Comments CULTURE (BEAKER) (test No growth in 5 days code = 1095) BLOOD [id number] 17:00:00 Test Item Value Reference Range Interpretation Comments CULTURE (BEAKER) (test No growth in 5 days code = 1095) URINE PROTEIN ELECTROPHORESIS, [id number] 14:35:00 Test Item Value Reference Range Interpretation Comments PROTEIN, URINE 15 mg/dL 0-14 H (BEAKER) (test code = 1569) ALBUMIN URINE ELP 20.8 % (BEAKER) (test code = 1018) GAMMA GLOBULIN URINE 79.2 % (BEAKER) (test code = 1015) UPEP, [id number]-438 (BEAKER) No monoclonal bands (test code = 2604) detected. [id number] Paola Hart MD (BEAKER) (test code = (electronic signature) 6091) [id number] 12:35:00 Test Item Value Reference Range Interpretation Comments POTASSIUM (BEAKER) (test code = 4.1 meq/L 3.5-5.1 379) [id number] 12:35:00 Test Item Value Reference Range Interpretation Comments MAGNESIUM (BEAKER) (test code = 2.3 mg/dL 1.6-2.6 627) SPUTUM CULTURE + GRAM [id number] 08:50:00 Test Item Value Reference Range Interpretation Comments CULTURE (BEAKER) 3+ Normal respiratory (test code = 1095) thais present GRAM STAIN RESULT 3+ WBCs (BEAKER) (test code = 1123) GRAM STAIN RESULT 5-10 epithelial cells (BEAKER) (test code = 40605) GRAM STAIN RESULT No organisms seen (BEAKER) (test code = 12785) [id number] 04:32:00 Test Item Value Reference Range Interpretation Comments PHOSPHORUS (BEAKER) (test code = 3.7 mg/dL 2.3-4.7 604) [id number] 04:32:00 Test Item Value Reference Range Interpretation Comments MAGNESIUM (BEAKER) (test code = 2.2 mg/dL 1.6-2.6 627) BASIC METABOLIC [id number] 04:32:00 Test Item Value Reference Range Interpretation Comments SODIUM (BEAKER) 145 meq/L 136-145 (test code = 381) POTASSIUM (BEAKER) 3.8 meq/L 3.5-5.1 (test code = 379) CHLORIDE (BEAKER) 109 meq/L 98-107 H (test code = 382) CO2 (BEAKER) (test 27 meq/L 22-29 code = 355) BLOOD UREA NITROGEN 17 mg/dL 7-21 (BEAKER) (test code = 354) CREATININE (BEAKER) 0.61 mg/dL 0.57-1.25 (test code = 358) GLUCOSE RANDOM 117 mg/dL 70-105 H (BEAKER) (test code = 652) CALCIUM (BEAKER) 8.3 mg/dL 8.4-10.2 L (test code = 697) EGFR (BEAKER) (test 99 mL/min/1.73 ESTIMA LULY GFR IS code = 1092) sq m NOT ACCURATE CREATININE CLEARANCE IN PREDICTING GLOMERULAR FILTRATION RATE . ESTIMATED GFR I S NOT APPLICABLE FOR DIALYSIS PATIEN TS. CBC W/PLT COUNT & AUTO [id number] 04:01:00 Test Item Value Reference Range Interpretation Comments WHITE BLOOD CELL COUNT (BEAKER) 12.1 K/ L 3.5-10.5 H (test code = 775) RED BLOOD CELL COUNT (BEAKER) 2.70 M/ L 3.93-5.22 L (test code = 761) HEMOGLOBIN (BEAKER) (test code = 8.1 GM/DL 11.2-15.7 L 410) HEMATOCRIT (BEAKER) (test code = 25.5 % 34.1-44.9 L 411) MEAN CORPUSCULAR VOLUME (BEAKER) 94.4 fL 79.4-94.8 (test code = 753) MEAN CORPUSCULAR HEMOGLOBIN 30.0 pg 25.6-32.2 (BEAKER) (test code = 751) MEAN CORPUSCULAR HEMOGLOBIN CONC 31.8 GM/DL 32.2-35.5 L (BEAKER) (test code = 752) RED CELL DISTRIBUTION WIDTH 14.6 % 11.7-14.4 H (BEAKER) (test code = 412) PLATELET COUNT (BEAKER) (test 288 K/CU MM 150-450 code = 756) MEAN PLATELET VOLUME (BEAKER) 10.7 fL 9.4-12.3 (test code = 754) NUCLEATED RED BLOOD CELLS 0 /100 WBC 0-0 (BEAKER) (test code = 413) NEUTROPHILS RELATIVE PERCENT 76 % (BEAKER) (test code = 429) LYMPHOCYTES RELATIVE PERCENT 12 % (BEAKER) (test code = 430) MONOCYTES RELATIVE PERCENT 9 % (BEAKER) (test code = 431) EOSINOPHILS RELATIVE PERCENT 2 % (BEAKER) (test code = 432) BASOPHILS RELATIVE PERCENT 0 % (BEAKER) (test code = 437) NEUTROPHILS ABSOLUTE COUNT 9.21 K/ L 1.56-6.13 H (BEAKER) (test code = 670) LYMPHOCYTES ABSOLUTE COUNT 1.39 K/ L 1.18-3.74 (BEAKER) (test code = 414) MONOCYTES ABSOLUTE COUNT (BEAKER) 1.14 K/ L 0.24-0.36 H (test code = 415) EOSINOPHILS ABSOLUTE COUNT 0.27 K/ L 0.04-0.36 (BEAKER) (test code = 416) BASOPHILS ABSOLUTE COUNT (BEAKER) 0.04 K/ L 0.01-0.08 (test code = 417) IMMATURE GRANULOCYTES-RELATIVE 1 % 0-1 PERCENT (BEAKER) (test code = 2801) [id number] 16:42:00 Test Item Value Reference Range Interpretation Comments POTASSIUM (BEAKER) (test code = 4.2 meq/L 3.5-5.1 379) RAD, HIP, 2 VIEWS, [id number] 15:50:00Reason for exam:->right hip pain s/p fallFINAL REPORT COMPARISON: None TECHNIQUE: 2 views of the right hip. FINDINGS: There are no acute fractures or dislocations. No radiopaque foreign bodies. Joint spaces are maintained. No lytic or blastic lesions.. IMPRESSION: No acute bony abnormality. Signed: Edgar Jorge [employer] Verified Date/Time: 08/30/2017 15:50:19 Reading Location: [address] Transitional Reading Room [id number] 13:52:00 Test Item Value Reference Range Interpretation Comments POTASSIUM (BEAKER) (test code = 3.4 meq/L 3.5-5.1 L 379) RAD, CHEST, 1 VIEW, NON [id number] 07:45:00Reason for exam:- >intubatedShould this be performed at the bedside?->YesFINAL REPORT Chest, one view. HISTORY: Intubated COMPARISON: 08/29/2017 IMPRESSION: Unchanged scattered bilateral interstitial opacities. Tracheostomy, feeding catheter, and right-sided PICC unchanged in position. Cardiomediastinal silhouette is unremarkable. No identifiable pneumothorax or pleural effusion. Signed: Fracisco Gray [employer] Verified Date/Time: 08/30/2017 07:45:44Reading Location: [address] Body Reading Room CBC W/PLT COUNT & AUTO DIFFERENTIAL 2017-08-30 06:30:00 Test Item Value Reference Range Interpretation Comments WHITE BLOOD CELL COUNT (BEAKER) 14.7 K/ L 3.5-10.5 H (test code = 775) RED BLOOD CELL COUNT (BEAKER) 2.97 M/ L 3.93-5.22 L (test code = 761) HEMOGLOBIN (BEAKER) (test code = 8.6 GM/DL 11.2-15.7 L 410) HEMATOCRIT (BEAKER) (test code = 28.2 % 34.1-44.9 L 411) MEAN CORPUSCULAR VOLUME (BEAKER) 94.9 fL 79.4-94.8 H (test code = 753) MEAN CORPUSCULAR HEMOGLOBIN 29.0 pg 25.6-32.2 (BEAKER) (test code = 751) MEAN CORPUSCULAR HEMOGLOBIN CONC 30.5 GM/DL 32.2-35.5 L (BEAKER) (test code = 752) RED CELL DISTRIBUTION WIDTH 14.7 % 11.7-14.4 H (BEAKER) (test code = 412) PLATELET COUNT (BEAKER) (test 331 K/CU MM 150-450 code = 756) MEAN PLATELET VOLUME (BEAKER) 10.3 fL 9.4-12.3 (test code = 754) NUCLEATED RED BLOOD CELLS 0 /100 WBC 0-0 (BEAKER) (test code = 413) NEUTROPHILS RELATIVE PERCENT 75 % (BEAKER) (test code = 429) LYMPHOCYTES RELATIVE PERCENT 10 % (BEAKER) (test code = 430) MONOCYTES RELATIVE PERCENT 10 % (BEAKER) (test code = 431) EOSINOPHILS RELATIVE PERCENT 3 % (BEAKER) (test code = 432) BASOPHILS RELATIVE PERCENT 0 % (BEAKER) (test code = 437) NEUTROPHILS ABSOLUTE COUNT 11.05 K/ L 1.56-6.13 H (BEAKER) (test code = 670) LYMPHOCYTES ABSOLUTE COUNT 1.52 K/ L 1.18-3.74 (BEAKER) (test code = 414) MONOCYTES ABSOLUTE COUNT (BEAKER) 1.45 K/ L 0.24-0.36 H (test code = 415) EOSINOPHILS ABSOLUTE COUNT 0.39 K/ L 0.04-0.36 H (BEAKER) (test code = 416) BASOPHILS ABSOLUTE COUNT (BEAKER) 0.05 K/ L 0.01-0.08 (test code = 417) IMMATURE GRANULOCYTES-RELATIVE 2 % 0-1 H PERCENT (BEAKER) (test code = 2801) [id number] 05:53:00 Test Item Value Reference Range Interpretation Comments POTASSIUM (BEAKER) (test code = 3.7 meq/L 3.5-5.1 379) [id number] 05:53:00 Test Item Value Reference Range Interpretation Comments MAGNESIUM (BEAKER) (test code = 1.9 mg/dL 1.6-2.6 627) [id number] 05:53:00 Test Item Value Reference Range Interpretation Comments PHOSPHORUS (BEAKER) (test code = 3.2 mg/dL 2.3-4.7 604) BASIC METABOLIC [id number] 05:53:00 Test Item Value Reference Range Interpretation Comments SODIUM (BEAKER) 151 meq/L 136-145 H (test code = 381) POTASSIUM (BEAKER) 3.7 meq/L 3.5-5.1 (test code = 379) CHLORIDE (BEAKER) 115 meq/L 98-107 H (test code = 382) CO2 (BEAKER) (test 27 meq/L 22-29 code = 355) BLOOD UREA NITROGEN 16 mg/dL 7-21 (BEAKER) (test code = 354) CREATININE (BEAKER) 0.58 mg/dL 0.57-1.25 (test code = 358) GLUCOSE RANDOM 137 mg/dL 70-105 H (BEAKER) (test code = 652) CALCIUM (BEAKER) 8.7 mg/dL 8.4-10.2 (test code = 697) EGFR (BEAKER) (test 105 mL/min/1.73 ESTIM ATED GFR IS code = 1092) sq m NOT ACCURATE CREATININE CLEARANCE IN PREDICTING GLOMERULAR FILTRATION RATE . ESTIMATED GFR I S NOT APPLICABLE FOR DIALYSIS PATIEN TS. [id number] 10:39:00 Test Item Value Reference Range Interpretation Comments POTASSIUM (BEAKER) (test code = 3.9 meq/L 3.5-5.1 379) RAD, CHEST, 1 VIEW, NON [id number] 08:43:00Reason for exam:- >intubatedShould this be performed at the bedside?->YesFINAL REPORT Comparison: 08/28/2017 TECHNIQUE: Single view of the chest FINDINGS: Bilateral interstitial and airspace opacities are stable. No gross new lung parenchymal changes. Support lines and tubes are stable. IMPRESSION:. No significant interval change. Signed: Edgar Jorge [employer] Verified Date/Time: 08/29/2017 08:43:22 Reading Location: [facility] C013Y CT Body Reading Room CBC W/PLT COUNT & AUTO [id number] 05:48:00 Test Item Value Reference Range Interpretation Comments WHITE BLOOD CELL COUNT (BEAKER) 13.7 K/ L 3.5-10.5 H (test code = 775) RED BLOOD CELL COUNT (BEAKER) 2.78 M/ L 3.93-5.22 L (test code = 761) HEMOGLOBIN (BEAKER) (test code = 8.2 GM/DL 11.2-15.7 L 410) HEMATOCRIT (BEAKER) (test code = 26.5 % 34.1-44.9 L 411) MEAN CORPUSCULAR VOLUME (BEAKER) 95.3 fL 79.4-94.8 H (test code = 753) MEAN CORPUSCULAR HEMOGLOBIN 29.5 pg 25.6-32.2 (BEAKER) (test code = 751) MEAN CORPUSCULAR HEMOGLOBIN CONC 30.9 GM/DL 32.2-35.5 L (BEAKER) (test code = 752) RED CELL DISTRIBUTION WIDTH 14.2 % 11.7-14.4 (BEAKER) (test code = 412) PLATELET COUNT (BEAKER) (test 262 K/CU MM 150-450 code = 756) MEAN PLATELET VOLUME (BEAKER) 10.2 fL 9.4-12.3 (test code = 754) NUCLEATED RED BLOOD CELLS 0 /100 WBC 0-0 (BEAKER) (test code = 413) NEUTROPHILS RELATIVE PERCENT 76 % (BEAKER) (test code = 429) LYMPHOCYTES RELATIVE PERCENT 12 % (BEAKER) (test code = 430) MONOCYTES RELATIVE PERCENT 8 % (BEAKER) (test code = 431) EOSINOPHILS RELATIVE PERCENT 2 % (BEAKER) (test code = 432) BASOPHILS RELATIVE PERCENT 0 % (BEAKER) (test code = 437) NEUTROPHILS ABSOLUTE COUNT 10.42 K/ L 1.56-6.13 H (BEAKER) (test code = 670) LYMPHOCYTES ABSOLUTE COUNT 1.59 K/ L 1.18-3.74 (BEAKER) (test code = 414) MONOCYTES ABSOLUTE COUNT (BEAKER) 1.15 K/ L 0.24-0.36 H (test code = 415) EOSINOPHILS ABSOLUTE COUNT 0.24 K/ L 0.04-0.36 (BEAKER) (test code = 416) BASOPHILS ABSOLUTE COUNT (BEAKER) 0.02 K/ L 0.01-0.08 (test code = 417) IMMATURE GRANULOCYTES-RELATIVE 2 % 0-1 H PERCENT (BEAKER) (test code = 2801) BASIC METABOLIC [id number] 05:33:00 Test Item Value Reference Range Interpretation Comments SODIUM (BEAKER) 153 meq/L 136-145 H (test code = 381) POTASSIUM (BEAKER) 3.8 meq/L 3.5-5.1 (test code = 379) CHLORIDE (BEAKER) 120 meq/L 98-107 H (test code = 382) CO2 (BEAKER) (test 26 meq/L 22-29 code = 355) BLOOD UREA NITROGEN 17 mg/dL 7-21 (BEAKER) (test code = 354) CREATININE (BEAKER) 0.58 mg/dL 0.57-1.25 (test code = 358) GLUCOSE RANDOM 156 mg/dL 70-105 H (BEAKER) (test code = 652) CALCIUM (BEAKER) 8.3 mg/dL 8.4-10.2 L (test code = 697) EGFR (BEAKER) (test 105 mL/min/1.73 ESTIM ATED GFR IS code = 1092) sq m NOT ACCURATE CREATININE CLEARANCE IN PREDICTING GLOMERULAR FILTRATION RATE . ESTIMATED GFR I S NOT APPLICABLE FOR DIALYSIS PATIEN TS. [id number] 05:32:00 Test Item Value Reference Range Interpretation Comments PHOSPHORUS (BEAKER) (test code = 2.3 mg/dL 2.3-4.7 604) [id number] 05:32:00 Test Item Value Reference Range Interpretation Comments MAGNESIUM (BEAKER) (test code = 2.0 mg/dL 1.6-2.6 627) [id number] 00:50:00 Test Item Value Reference Range Interpretation Comments POTASSIUM (BEAKER) (test code = 3.8 meq/L 3.5-5.1 379) [id number] 00:50:00 Test Item Value Reference Range Interpretation Comments SODIUM (BEAKER) (test code = 381) 149 meq/L 136-145 H [id number] 19:17:00 Test Item Value Reference Range Interpretation Comments POTASSIUM (BEAKER) (test code = 3.4 meq/L 3.5-5.1 L 379) [id number] 19:17:00 Test Item Value Reference Range Interpretation Comments SODIUM (BEAKER) (test code = 381) 143 meq/L 136-145 [id number] 15:23:00 Test Item Value Reference Range Interpretation Comments POTASSIUM (BEAKER) (test code = 3.9 meq/L 3.5-5.1 379) [id number] 15:23:00 Test Item Value Reference Range Interpretation Comments SODIUM (BEAKER) (test code = 381) 143 meq/L 136-145 PROTEIN ELECTROPHORESIS, [id number] 14:05:00 Test Item Value Reference Range Interpretation Comments ALBUMIN FRACTION 2.1 g/dL 3.5-5.5 L (BEAKER) (test code = 405) ALPHA 1 FRACTION 0.5 g/dL 0.2-0.4 H (BEAKER) (test code = 389) ALPHA 2 FRACTION 1.1 g/dL 0.5-0.9 H (BEAKER) (test code = 390) BETA FRACTION 1.0 g/dL 0.6-1.1 (BEAKER) (test code = 392) GAMMA GLOBULIN 0.7 g/dL 0.7-1.7 FRACTION (BEAKER) (test code = 391) INTERPRETATION-119 Pattern consistent with (BEAKER) (test code = acute inflammatory 2615) process. No monoclonal bands detected. [id number] Paola Hart MD (BEAKER) (test code = (electronic signature) 1162) PROTEIN TOTAL SERUM, 5.3 gm/dL 6.0-8.3 L SPEP (BEAKER) (test code = 2660) CSF CULTURE + GRAM [id number] 12:34:00 Test Item Value Reference Range Interpretation Comments CULTURE (BEAKER) (test code No growth = 1095) GRAM STAIN RESULT (BEAKER) <1+ WBCs (test code = 1123) GRAM STAIN RESULT (BEAKER) No organisms seen (test code = 65799) URINE [id number] 11:40:00 Test Item Value Reference Range Interpretation Comments CULTURE (BEAKER) (test A >100, 000 col/mL Lesly code = 1095) albicans SPUTUM CULTURE + GRAM [id number] 09:07:00 Test Item Value Reference Range Interpretation Comments CULTURE (BEAKER) (test See comment code = 1095) GRAM STAIN RESULT 1+ WBCs (BEAKER) (test code = 1123) GRAM STAIN RESULT No organisms seen (BEAKER) (test code = 452062) GRAM STAIN RESULT 0-5 epithelial cells (BEAKER) (test code = 124104) <1+ YeastNo Normal respiratory thais presentRAD, CHEST, 1 VIEW, NON DEPT 2017-08-28 07:39:00Reason for exam:->intubatedShould this be performed at the bedside?->YesFINAL REPORT Chest one view AP 08/28/2017 7:38 AM CLINICAL INDICATION: intubated COMPARISON: 08/27/2017 IMPRESSION: The endotracheal tube has been replaced with a tracheostomy. Remaining support hardware is unchanged in position. Cardiomediastinal contours are stable. The central pulmonary vasculature is not engorged. Symmetric coarse bilateral pulmonary opacities are unchanged. Signed: Tamir Truong Verified Date/Time: 08/28/2017 07:39:17 Reading Location: [facility] Radiology Reading Room BLOOD GAS, [id number] 06:19:00 Test Item Value Reference Range Interpretation Comments PH ARTERIAL (BEAKER) (test code = 7.42 7.35-7.45 383) PCO2 ARTERIAL (BEAKER) (test code 44 mmHg 35-45 = 384) PO2 ARTERIAL (BEAKER) (test code = 143 mmHg 80-90 H 385) O2 SATURATION ARTERIAL (BEAKER) 98.8 % 96.0-97.0 H (test code = 386) HCO3 ARTERIAL (BEAKER) (test code 28 mmol/L 21-29 = 388) BASE EXCESS ARTERIAL (BEAKER) 3.3 mmol/L -2.0-3.0 H (test code = 387) PATIENT TEMPERATURE (BEAKER) (test 37.8 C code = 1818) FIO2 (BEAKER) (test code = 1819) 40.0 % CBC W/PLT COUNT & AUTO [id number] 05:58:00 Test Item Value Reference Range Interpretation Comments WHITE BLOOD CELL COUNT (BEAKER) 13.5 K/ L 3.5-10.5 H (test code = 775) RED BLOOD CELL COUNT (BEAKER) 3.15 M/ L 3.93-5.22 L (test code = 761) HEMOGLOBIN (BEAKER) (test code = 9.3 GM/DL 11.2-15.7 L 410) HEMATOCRIT (BEAKER) (test code = 29.2 % 34.1-44.9 L 411) MEAN CORPUSCULAR VOLUME (BEAKER) 92.7 fL 79.4-94.8 (test code = 753) MEAN CORPUSCULAR HEMOGLOBIN 29.5 pg 25.6-32.2 (BEAKER) (test code = 751) MEAN CORPUSCULAR HEMOGLOBIN CONC 31.8 GM/DL 32.2-35.5 L (BEAKER) (test code = 752) RED CELL DISTRIBUTION WIDTH 14.3 % 11.7-14.4 (BEAKER) (test code = 412) PLATELET COUNT (BEAKER) (test 248 K/CU MM 150-450 code = 756) MEAN PLATELET VOLUME (BEAKER) 11.0 fL 9.4-12.3 (test code = 754) NUCLEATED RED BLOOD CELLS 0 /100 WBC 0-0 (BEAKER) (test code = 413) NEUTROPHILS RELATIVE PERCENT 78 % (BEAKER) (test code = 429) LYMPHOCYTES RELATIVE PERCENT 10 % (BEAKER) (test code = 430) MONOCYTES RELATIVE PERCENT 8 % (BEAKER) (test code = 431) EOSINOPHILS RELATIVE PERCENT 2 % (BEAKER) (test code = 432) BASOPHILS RELATIVE PERCENT 0 % (BEAKER) (test code = 437) NEUTROPHILS ABSOLUTE COUNT 10.54 K/ L 1.56-6.13 H (BEAKER) (test code = 670) LYMPHOCYTES ABSOLUTE COUNT 1.31 K/ L 1.18-3.74 (BEAKER) (test code = 414) MONOCYTES ABSOLUTE COUNT (BEAKER) 1.03 K/ L 0.24-0.36 H (test code = 415) EOSINOPHILS ABSOLUTE COUNT 0.26 K/ L 0.04-0.36 (BEAKER) (test code = 416) BASOPHILS ABSOLUTE COUNT (BEAKER) 0.04 K/ L 0.01-0.08 (test code = 417) IMMATURE GRANULOCYTES-RELATIVE 2 % 0-1 H PERCENT (BEAKER) (test code = 2801) [id number] 05:50:00 Test Item Value Reference Range Interpretation Comments PHOSPHORUS (BEAKER) (test code = 3.1 mg/dL 2.3-4.7 604) [id number] 05:50:00 Test Item Value Reference Range Interpretation Comments MAGNESIUM (BEAKER) (test code = 2.0 mg/dL 1.6-2.6 627) BASIC METABOLIC [id number] 05:50:00 Test Item Value Reference Range Interpretation Comments SODIUM (BEAKER) 140 meq/L 136-145 (test code = 381) POTASSIUM (BEAKER) 4.1 meq/L 3.5-5.1 (test code = 379) CHLORIDE (BEAKER) 107 meq/L 98-107 (test code = 382) CO2 (BEAKER) (test 25 meq/L 22-29 code = 355) BLOOD UREA NITROGEN 17 mg/dL 7-21 (BEAKER) (test code = 354) CREATININE (BEAKER) 0.57 mg/dL 0.57-1.25 (test code = 358) GLUCOSE RANDOM 123 mg/dL 70-105 H (BEAKER) (test code = 652) CALCIUM (BEAKER) 8.4 mg/dL 8.4-10.2 (test code = 697) EGFR (BEAKER) (test 107 mL/min/1.73 ESTIM ATED GFR IS code = 1092) sq m NOT ACCURATE CREATININE CLEARANCE IN PREDICTING GLOMERULAR FILTRATION RATE . ESTIMATED GFR I S NOT APPLICABLE FOR DIALYSIS PATIEN TS. BLOOD [id number] 05:01:00 Test Item Value Reference Range Interpretation Comments CULTURE (BEAKER) (test No growth in 5 days code = 1095) BLOOD [id number] 23:00:00 Test Item Value Reference Range Interpretation Comments CULTURE (BEAKER) (test No growth in 5 days code = 1095) [id number] 22:09:00 Test Item Value Reference Range Interpretation Comments POTASSIUM (BEAKER) (test code = 3.9 meq/L 3.5-5.1 379) [id number] 22:09:00 Test Item Value Reference Range Interpretation Comments SODIUM (BEAKER) (test code = 381) 139 meq/L 136-145 [id number] 16:37:00 Test Item Value Reference Range Interpretation Comments SODIUM (BEAKER) (test code = 381) 139 meq/L 136-145 [id number] 12:42:00 Test Item Value Reference Range Interpretation Comments POTASSIUM (BEAKER) (test code = 3.7 meq/L 3.5-5.1 379) CARDIOLIPIN ANTIBODIES, IGG AND [id number] 11:00:00 Test Item Value Reference Range Interpretation Comments ANTICARDIOLIPIN IGG ANTIBODY (BEAKER) < GPL (test code = 712) ANTICARDIOLIPIN IGM ANTIBODY (BEAKER) 0.2 MPL (test code = 713) Anticardiolipin IgG Result Interpretation:NEG: <20 GPL; U/mlPOS: >/=20 GPL; U/mlAnticardiolipin IgM Result Interpretation:NEG: <20 MPL; U/mlPOS: >/=20 MPL; U/mlDOUBLE-STRANDED DNA (DSDNA) [id number] 08:14:00 Test Item Value Reference Range Interpretation Comments ANTI-DNA DS (BEAKER) (test code = Negative 1055) ANTI-NUCLEAR ANTIBODY ([place])2017-08-27 08:13:00 Test Item Value Reference Range Interpretation Comments ANTI-NUCLEAR ANTIBODY ([place]) (BEAKER) Negative Negative (test code = 418) RAD, CHEST, 1 VIEW, NON [id number] 07:41:00Reason for exam:- >intubatedShould this be performed at the bedside?->YesFINAL REPORT Chest one view AP 08/27/2017 7:41 AM CLINICAL INDICATION: intubated COMPARISON: 08/26/2017 IMPRESSION: Support hardware is unchanged in position. Cardiomediastinal contours are stable. There is central pulmonary vasculature congestion with mild peripheral edema. Superimposed patchy opacities in both upper lungs are unchanged. Signed: Tamir Truong MDR[employer] Verified Da te/Time: 08/27/2017 07:41:23 Reading Location: [facility] Radiology Reading Room [id number] 05:19:00 Test Item Value Reference Range Interpretation Comments MAGNESIUM (BEAKER) 2.3 mg/dL 1.6-2.6 Specimen slightly (test code = 627) hemolyzed [id number] 05:19:00 Test Item Value Reference Range Interpretation Comments PHOSPHORUS (BEAKER) 3.2 mg/dL 2.3-4.7 Specimen slightly (test code = 604) hemolyzed BASIC METABOLIC [id number] 05:19:00 Test Item Value Reference Range Interpretation Comments SODIUM (BEAKER) 130 meq/L 136-145 L (test code = 381) POTASSIUM (BEAKER) 4.0 meq/L 3.5-5.1 Specimen slightly (test code = 379) hemolyzed CHLORIDE (BEAKER) 94 meq/L 98-107 L (test code = 382) CO2 (BEAKER) (test 26 meq/L 22-29 code = 355) BLOOD UREA NITROGEN 18 mg/dL 7-21 (BEAKER) (test code = 354) CREATININE (BEAKER) 0.58 mg/dL 0.57-1.25 Specimen slightly (test code = 358) hemolyzed GLUCOSE RANDOM 111 mg/dL 70-105 H (BEAKER) (test code = 652) CALCIUM (BEAKER) 8.7 mg/dL 8.4-10.2 (test code = 697) EGFR (BEAKER) (test 105 mL/min/1.73 ESTIM ATED GFR IS code = 1092) sq m NOT ACCURATE CREATININE CLEARANCE IN PREDICTING GLOMERULAR FILTRATION RATE . ESTIMATED GFR I S NOT APPLICABLE FOR DIALYSIS PATIEN TS. CBC W/PLT COUNT & AUTO [id number] 05:05:00 Test Item Value Reference Range Interpretation Comments WHITE BLOOD CELL COUNT (BEAKER) 13.3 K/ L 3.5-10.5 H (test code = 775) RED BLOOD CELL COUNT (BEAKER) 3.36 M/ L 3.93-5.22 L (test code = 761) HEMOGLOBIN (BEAKER) (test code = 10.3 GM/DL 11.2-15.7 L 410) HEMATOCRIT (BEAKER) (test code = 30.6 % 34.1-44.9 L 411) MEAN CORPUSCULAR VOLUME (BEAKER) 91.1 fL 79.4-94.8 (test code = 753) MEAN CORPUSCULAR HEMOGLOBIN 30.7 pg 25.6-32.2 (BEAKER) (test code = 751) MEAN CORPUSCULAR HEMOGLOBIN CONC 33.7 GM/DL 32.2-35.5 (BEAKER) (test code = 752) RED CELL DISTRIBUTION WIDTH 13.9 % 11.7-14.4 (BEAKER) (test code = 412) PLATELET COUNT (BEAKER) (test 230 K/CU MM 150-450 code = 756) MEAN PLATELET VOLUME (BEAKER) 11.6 fL 9.4-12.3 (test code = 754) NUCLEATED RED BLOOD CELLS 0 /100 WBC 0-0 (BEAKER) (test code = 413) NEUTROPHILS RELATIVE PERCENT 74 % (BEAKER) (test code = 429) LYMPHOCYTES RELATIVE PERCENT 13 % (BEAKER) (test code = 430) MONOCYTES RELATIVE PERCENT 8 % (BEAKER) (test code = 431) EOSINOPHILS RELATIVE PERCENT 1 % (BEAKER) (test code = 432) BASOPHILS RELATIVE PERCENT 0 % (BEAKER) (test code = 437) NEUTROPHILS ABSOLUTE COUNT 9.79 K/ L 1.56-6.13 H (BEAKER) (test code = 670) LYMPHOCYTES ABSOLUTE COUNT 1.72 K/ L 1.18-3.74 (BEAKER) (test code = 414) MONOCYTES ABSOLUTE COUNT (BEAKER) 1.01 K/ L 0.24-0.36 H (test code = 415) EOSINOPHILS ABSOLUTE COUNT 0.19 K/ L 0.04-0.36 (BEAKER) (test code = 416) BASOPHILS ABSOLUTE COUNT (BEAKER) 0.03 K/ L 0.01-0.08 (test code = 417) IMMATURE GRANULOCYTES-RELATIVE 4 % 0-1 H PERCENT (BEAKER) (test code = 2801) BLOOD GAS, [id number] 04:44:00 Test Item Value Reference Range Interpretation Comments PH ARTERIAL (BEAKER) (test code = 7.52 7.35-7.45 H 383) PCO2 ARTERIAL (BEAKER) (test code 41 mmHg 35-45 = 384) PO2 ARTERIAL (BEAKER) (test code = 124 mmHg 80-90 H 385) O2 SATURATION ARTERIAL (BEAKER) 98.7 % 96.0-97.0 H (test code = 386) HCO3 ARTERIAL (BEAKER) (test code 32 mmol/L 21-29 H = 388) BASE EXCESS ARTERIAL (BEAKER) 8.7 mmol/L -2.0-3.0 H (test code = 387) PATIENT TEMPERATURE (BEAKER) (test 37.1 C code = 1818) FIO2 (BEAKER) (test code = 1819) 40.0 % HEPATITIS C PCR, [id number] 15:25:00 Test Item Value Reference Range Interpretation Comments HCV RESULT COMPONENT HCV RNA not detected HCV RNA not detected (BEAKER) (test code = 2699) This test uses a Real-Time Polymerase Chain Reaction (RT-PCR) methodology and was performed using [employer] Ampliprep/SOFIA TaqMan HCV test kit version 2.0 ([employer]Reportable range for this assay is 15 - 100,000,000 IU per mL (1.18 - 8.00 Log IU/mL).HEPATITIS B PCR, QUANTITATIVE 2017-08-26 13:41:00 Test Item Value Reference Range Interpretation Comments HBV RESULT COMPONENT HBV DNA not detected HBV DNA not detected (BEAKER) (test code = 2701) This test uses a Real-Time Polymerase Chain Reaction (RT-PCR) methodology and was performed using [employer] AmpliPrep/SOFIA TaqMan HBV Test, v2.0 ([employer]Reportable range for this assay is 20 - 170,000,000 IU per mL (1.30 - 8.23 Log IU/mL).HEMOGLOBIN [id number] 13:34:00 Test Item Value Reference Range Interpretation Comments HEMOGLOBIN A1C (BEAKER) (test code = 5.6 % 4.3-6.1 368) URINALYSIS W/ [id number] 10:57:00 Test Item Value Reference Range Interpretation Comments COLOR (BEAKER) (test code = 470) Yellow CLARITY (BEAKER) (test code = 469) Hazy SPECIFIC GRAVITY UA (BEAKER) (test 1.025 1.001-1.035 code = 468) PH UA (BEAKER) (test code = 467) 6.0 5.0-8.0 PROTEIN UA (BEAKER) (test code = 50 mg/dL Negative A 464) GLUCOSE UA (BEAKER) (test code = Negative Negative 365) KETONES UA (BEAKER) (test code = Negative Negative 371) BILIRUBIN UA (BEAKER) (test code = Negative Negative 462) BLOOD UA (BEAKER) (test code = Negative Negative 461) NITRITE UA (BEAKER) (test code = Negative Negative 465) LEUKOCYTE ESTERASE UA (BEAKER) Large Negative A (test code = 466) UROBILINOGEN UA (BEAKER) (test 0.2 mg/dL 0.2-1.0 code = 463) RBC UA (BEAKER) (test code = 519) 9 /HPF WBC UA (BEAKER) (test code = 520) 121 /HPF MUCUS (BEAKER) (test code = 1574) Rare SQUAMOUS EPITHELIAL (BEAKER) (test 1 /HPF code = 516) CASTS (BEAKER) (test code = 1579) 2 /LPF CRYSTALS, URINE (BEAKER) (test Occasional code = 1521) YEAST (BEAKER) (test code = 1585) Occasional SOURCE(BEAKER) (test code = 8715) [id number] 10:48:00 Test Item Value Reference Range Interpretation Comments PHOSPHORUS (BEAKER) (test code = 3.5 mg/dL 2.3-4.7 604) [id number] 10:48:00 Test Item Value Reference Range Interpretation Comments MAGNESIUM (BEAKER) (test code = 1.9 mg/dL 1.6-2.6 627) BASIC METABOLIC [id number] 10:48:00 Test Item Value Reference Range Interpretation Comments SODIUM (BEAKER) 135 meq/L 136-145 L (test code = 381) POTASSIUM (BEAKER) 3.7 meq/L 3.5-5.1 (test code = 379) CHLORIDE (BEAKER) 97 meq/L 98-107 L (test code = 382) CO2 (BEAKER) (test 31 meq/L 22-29 H code = 355) BLOOD UREA NITROGEN 20 mg/dL 7-21 (BEAKER) (test code = 354) CREATININE (BEAKER) 0.61 mg/dL 0.57-1.25 (test code = 358) GLUCOSE RANDOM 152 mg/dL 70-105 H (BEAKER) (test code = 652) CALCIUM (BEAKER) 8.9 mg/dL 8.4-10.2 (test code = 697) EGFR (BEAKER) (test 99 mL/min/1.73 ESTIMA LULY GFR IS code = 1092) sq m NOT ACCURATE CREATININE CLEARANCE IN PREDICTING GLOMERULAR FILTRATION RATE . ESTIMATED GFR I S NOT APPLICABLE FOR DIALYSIS PATIEN TS. CBC W/PLT COUNT & AUTO [id number] 10:27:00 Test Item Value Reference Range Interpretation Comments WHITE BLOOD CELL COUNT (BEAKER) 10.8 K/ L 3.5-10.5 H (test code = 775) RED BLOOD CELL COUNT (BEAKER) 3.38 M/ L 3.93-5.22 L (test code = 761) HEMOGLOBIN (BEAKER) (test code = 10.1 GM/DL 11.2-15.7 L 410) HEMATOCRIT (BEAKER) (test code = 30.8 % 34.1-44.9 L 411) MEAN CORPUSCULAR VOLUME (BEAKER) 91.1 fL 79.4-94.8 (test code = 753) MEAN CORPUSCULAR HEMOGLOBIN 29.9 pg 25.6-32.2 (BEAKER) (test code = 751) MEAN CORPUSCULAR HEMOGLOBIN CONC 32.8 GM/DL 32.2-35.5 (BEAKER) (test code = 752) RED CELL DISTRIBUTION WIDTH 14.0 % 11.7-14.4 (BEAKER) (test code = 412) PLATELET COUNT (BEAKER) (test 200 K/CU MM 150-450 code = 756) MEAN PLATELET VOLUME (BEAKER) 11.4 fL 9.4-12.3 (test code = 754) NUCLEATED RED BLOOD CELLS 0 /100 WBC 0-0 (BEAKER) (test code = 413) NEUTROPHILS RELATIVE PERCENT 75 % (BEAKER) (test code = 429) LYMPHOCYTES RELATIVE PERCENT 11 % (BEAKER) (test code = 430) MONOCYTES RELATIVE PERCENT 7 % (BEAKER) (test code = 431) EOSINOPHILS RELATIVE PERCENT 2 % (BEAKER) (test code = 432) BASOPHILS RELATIVE PERCENT 0 % (BEAKER) (test code = 437) NEUTROPHILS ABSOLUTE COUNT 8.05 K/ L 1.56-6.13 H (BEAKER) (test code = 670) LYMPHOCYTES ABSOLUTE COUNT 1.22 K/ L 1.18-3.74 (BEAKER) (test code = 414) MONOCYTES ABSOLUTE COUNT (BEAKER) 0.73 K/ L 0.24-0.36 H (test code = 415) EOSINOPHILS ABSOLUTE COUNT 0.23 K/ L 0.04-0.36 (BEAKER) (test code = 416) BASOPHILS ABSOLUTE COUNT (BEAKER) 0.02 K/ L 0.01-0.08 (test code = 417) IMMATURE GRANULOCYTES-RELATIVE 5 % 0-1 H PERCENT (BEAKER) (test code = 2801) SEDIMENTATION [id number] 07:15:00 Test Item Value Reference Range Interpretation Comments SEDIMENTATION RATE, ERYTHROCYTE > mm/HR 0-30 H (BEAKER) (test code = 766) HIV-1 ANTIGEN WITH HIV-1/2 [id number] 05:57:00 Test Item Value Reference Range Interpretation Comments HIV-1 ANTIGEN WITH HIV 1\\T\\2 Nonreactive Nonreactive ANTIBODY (2) (BEAKER) (test code = 2586) LIPID [id number] 05:43:00 Test Item Value Reference Range Interpretation Comments TRIGLYCERIDES (BEAKER) 1263 mg/dL Speci men slightly (test code = 540) hemolyzed CHOLESTEROL (BEAKER) 225 mg/dL Specime n slightly (test code = 631) hemolyzed HDL CHOLESTEROL (BEAKER) 37 mg/dL (test code = 976) Calculated LDL not valid if triglyceride >400 mg/dLTriglyceride Reference Range: Low Risk <150 Borderline 150-199 High Risk 200-499 Very High Risk >=500Cholesterol Reference Range: Low Risk <200 Borderline 200-239 High Risk >240HDL Cholesterol Reference Range: Low Risk >=60 High Risk <40LDL Cholesterol ReferenceRange: Optimal <100 Near Optimal 100-129 Borderline 130-159 High 160-189 Very High >=190 Specimen markedly lipemicC-REACTIVE [id number] 05:41:00 Test Item Value Reference Range Interpretation Comments C-REACTIVE PROTEIN (BEAKER) (test 19.86 mg/dL 0.00-0.50 H code = 676) COMPLEMENT COMPONENT [id number] 05:40:00 Test Item Value Reference Range Interpretation Comments C4 COMPLEMENT (BEAKER) (test code = 21 mg/dL 15-57 394) COMPLEMENT COMPONENT [id number] 05:40:00 Test Item Value Reference Range Interpretation Comments C3 COMPLEMENT (BEAKER) (test code = 144 mg/dL 82-193 393) BLOOD GAS, [id number] 04:32:00 Test Item Value Reference Range Interpretation Comments PH ARTERIAL (BEAKER) (test code = 7.47 7.35-7.45 H 383) PCO2 ARTERIAL (BEAKER) (test code 45 mmHg 35-45 = 384) PO2 ARTERIAL (BEAKER) (test code = 141 mmHg 80-90 H 385) O2 SATURATION ARTERIAL (BEAKER) 98.9 % 96.0-97.0 H (test code = 386) HCO3 ARTERIAL (BEAKER) (test code 32 mmol/L 21-29 H = 388) BASE EXCESS ARTERIAL (BEAKER) 7.6 mmol/L -2.0-3.0 H (test code = 387) PATIENT TEMPERATURE (BEAKER) (test 38.0 C code = 1818) FIO2 (BEAKER) (test code = 1819) 40.0 % RAD, CHEST, 1 VIEW, NON [id number] 03:48:00Reason for exam:- >intubatedShould this be performed at the bedside?->YesFINAL REPORT RAD, CHEST, 1 VIEW, NON DEPT INDICATION: intubated COMPARISON: Prior day's exam FINDINGS: Portable frontal view of the chest. IMPRESSION: Support Lines: Stable. Lungs and pleura: Predominantly upper lobe opacities similar to the prior examination. Interstitial markings have improved. No effusion. No pneumothorax.Heart and mediastinum: Stable contours. Additional findings: None. Signed: JR Huggins Robert MDReport Verified Date/Time: 08/26/2017 03:48:06 Reading Location: [address] Reading Room TININE, RANDOM [id number] 22:40:00 Test Item Value Reference Range Interpretation Comments CREATININE URINE (BEAKER) (test 94.2 mg/dL code = 375) Reference Range: No NormalsPROTEIN, RANDOM [id number] 22:40:00 Test Item Value Reference Range Interpretation Comments PROTEIN, URINE (BEAKER) (test code = 70 mg/dL 0-14 H 1569) URINALYSIS W/ [id number] 20:42:00 Test Item Value Reference Range Interpretation Comments COLOR (BEAKER) (test code = 470) Yellow CLARITY (BEAKER) (test code = Hazy 469) SPECIFIC GRAVITY UA (BEAKER) 1.021 1.001-1.035 (test code = 468) PH UA (BEAKER) (test code = 467) 6.0 5.0-8.0 PROTEIN UA (BEAKER) (test code = 50 mg/dL Negative A 464) GLUCOSE UA (BEAKER) (test code = Negative Negative 365) KETONES UA (BEAKER) (test code = 10 mg/dL Negative A 371) BILIRUBIN UA (BEAKER) (test code Negative Negative = 462) BLOOD UA (BEAKER) (test code = Small Negative A 461) NITRITE UA (BEAKER) (test code = Negative Negative 465) LEUKOCYTE ESTERASE UA (BEAKER) Large Negative A (test code = 466) UROBILINOGEN UA (BEAKER) (test 0.2 mg/dL 0.2-1.0 code = 463) RBC UA (BEAKER) (test code = 34 /HPF 519) WBC UA (BEAKER) (test code = 122 /HPF 520) BACTERIA (BEAKER) (test code = Occasional 517) MUCUS (BEAKER) (test code = Rare 1574) SQUAMOUS EPITHELIAL (BEAKER) 1 /HPF (test code = 516) CRYSTALS, URINE (BEAKER) (test Occasional code = 1521) YEAST (BEAKER) (test code = Few 1585) SOURCE(BEAKER) (test code = Urine, Banks 2901) NEEDLE EMG, 4 [id number] 17:31:00Reason for exam:->progressive weakness and stiffness,Reason for exam:->with nerve conduction study if possibleShould this be performed at the bedside?->YesBaylor Cottage Children's HospitalNeurophysiology DepartmentELECTROMYOGRAPHY / NERVE CONDUCTION STUDY [address] [place] [address] Name: Juanpablo Gorman : Date of : 1955 Gender: Female Date of Exam: 08/25/2017 4:53 PMReferring Physician: Ra VipinhulExamining Physician: Linda LeaPatient History: Patient presents with [...] 13.6 45.0Median.R 8.4 31.0Ulnar.R 8.0 30.3Sensory Nerve Conduction:Nerve and Site On set Latency Peak Latency Amplitude Segment Latency Difference Distance Conduction VelocitySural.RLower leg 2.3 ms 3.7 ms 21 V Ankle-Lower leg 2.3 ms 140 mm 38 m/sMedian.RWrist 2.7 ms 3.5 ms14 𐸉V Digit II (index finger)-Wrist 2.7 ms 130 mm 47 m/sUlnar.RWrist 2.4 ms 2.9 ms 11 &amp ;#[id number];V Digit V (little finger)-Wrist 2.4 ms 110 mm 46 m/sRadial.RForearm 1.6 ms 2.2 ms 18 鴍V Anatomical snuff box-Forearm 1.6 ms 80 mm 36 m/sH- waves:Nerve Latency Amplitude (max)Tibial.RM-wave: 5.0 ms 6.1 mVH-wave: [...] None Normal Normal None Normal (used noxious stimuli)1st dorsal interosseous.R Normal None None [...] large-fiber polyneuropathy.Comment: Compared to EMG/NCS studies at [facility] on October 042014 and April 012016, the above denervation is new; there are no other changes. Linda Lea M.D. CSF CELL COUNT W/[id number] 16:50:00 Test Item Value Reference Range Interpretation Comments APPEARANCE CSF (BEAKER) (test code Clear Clear = 407) COLOR CSF (BEAKER) (test code = Colorless Colorless 408) RBC CSF (BEAKER) (test code = 409) 1 /cu mm 0-5 WBC CSF (BEAKER) (test code = 0 /cu mm <=5 1020) RBCS FRESH (BEAKER) (test code = 100% Fresh 1444) NUMBER OF CELLS DIFF'D (BEAKER) 0 (test code = 1591) TUBE NUMBER CSF (BEAKER) (test 4 code = 2678) GLUCOSE, [id number] 16:30:00 Test Item Value Reference Range Interpretation Comments GLUCOSE CSF (BEAKER) (test code = 78 mg/dL 40-70 H 406) PROTEIN, [id number] 16:30:00 Test Item Value Reference Range Interpretation Comments PROTEIN CSF (BEAKER) (test code = 30 mg/dL 15-45 378) RAD, CHEST, 1 VIEW, NON [id number] 13:17:00Reason for exam:->post picc line insertion Should [...] appearance to the prior examination Signed: Tamir Truongssm health [facility] Verified Date/Time: 08/25/2017 13:17:41 Reading Location: [facility] [id number] Consult Reading Room BASI METABOLIC [id number] 05:57:00 Test Item Value Reference Range Interpretation Comments SODIUM (BEAKER) 135 meq/L 136-145 L (test code = 381) POTASSIUM (BEAKER) 3.8 meq/L 3.5-5.1 (test code = 379) CHLORIDE (BEAKER) 98 meq/L 98-107 (test code = 382) CO2 (BEAKER) (test 27 meq/L 22-29 code = 355) BLOOD UREA NITROGEN 20 mg/dL 7-21 (BEAKER) (test code = 354) CREATININE (BEAKER) 0.61 mg/dL 0.57-1.25 (test code = 358) GLUCOSE RANDOM 121 mg/dL 70-105 H (BEAKER) (test code = 652) CALCIUM (BEAKER) 8.9 mg/dL 8.4-10.2 (test code = 697) EGFR (BEAKER) (test 99 mL/min/1.73 ESTIMA LULY GFR IS code = 1092) sq m NOT ACCURATE CREATININE CLEARANCE IN PREDICTING GLOMERULAR FILTRATION RATE . ESTIMATED GFR I S NOT APPLICABLE FOR DIALYSIS PATIEN TS. [id number] 05:57:00 Test Item Value Reference Range Interpretation Comments MAGNESIUM (BEAKER) (test code = 2.1 mg/dL 1.6-2.6 627) [id number] 05:57:00 Test Item Value Reference Range Interpretation Comments PHOSPHORUS (BEAKER) (test code = 2.7 mg/dL 2.3-4.7 604) [id number] 05:57:00 Test Item Value Reference Range Interpretation Comments ALBUMIN (BEAKER) (test code = 1145) 2.7 g/dL 3.5-5.0 L CBC W/PLT COUNT & AUTO [id number] 05:28:00 Test Item Value Reference Range Interpretation Comments WHITE BLOOD CELL COUNT (BEAKER) 11.5 K/ L 3.5-10.5 H (test code = 775) RED BLOOD CELL COUNT (BEAKER) 3.50 M/ L 3.93-5.22 L (test code = 761) HEMOGLOBIN (BEAKER) (test code = 10.5 GM/DL 11.2-15.7 L 410) HEMATOCRIT (BEAKER) (test code = 32.0 % 34.1-44.9 L 411) MEAN CORPUSCULAR VOLUME (BEAKER) 91.4 fL 79.4-94.8 (test code = 753) MEAN CORPUSCULAR HEMOGLOBIN 30.0 pg 25.6-32.2 (BEAKER) (test code = 751) MEAN CORPUSCULAR HEMOGLOBIN CONC 32.8 GM/DL 32.2-35.5 (BEAKER) (test code = 752) RED CELL DISTRIBUTION WIDTH 14.1 % 11.7-14.4 (BEAKER) (test code = 412) PLATELET COUNT (BEAKER) (test 190 K/CU MM 150-450 code = 756) MEAN PLATELET VOLUME (BEAKER) 11.7 fL 9.4-12.3 (test code = 754) NUCLEATED RED BLOOD CELLS 0 /100 WBC 0-0 (BEAKER) (test code = 413) NEUTROPHILS RELATIVE PERCENT 70 % (BEAKER) (test code = 429) LYMPHOCYTES RELATIVE PERCENT 13 % (BEAKER) (test code = 430) MONOCYTES RELATIVE PERCENT 8 % (BEAKER) (test code = 431) EOSINOPHILS RELATIVE PERCENT 4 % (BEAKER) (test code = 432) BASOPHILS RELATIVE PERCENT 0 % (BEAKER) (test code = 437) NEUTROPHILS ABSOLUTE COUNT 8.07 K/ L 1.56-6.13 H (BEAKER) (test code = 670) LYMPHOCYTES ABSOLUTE COUNT 1.45 K/ L 1.18-3.74 (BEAKER) (test code = 414) MONOCYTES ABSOLUTE COUNT (BEAKER) 0.92 K/ L 0.24-0.36 H (test code = 415) EOSINOPHILS ABSOLUTE COUNT 0.44 K/ L 0.04-0.36 H (BEAKER) (test code = 416) BASOPHILS ABSOLUTE COUNT (BEAKER) 0.02 K/ L 0.01-0.08 (test code = 417) IMMATURE GRANULOCYTES-RELATIVE 5 % 0-1 H PERCENT (BEAKER) (test code = 2801) RAD, CHEST, 1 VIEW, NON [id number] 04:09:00Reason for exam:- >intubatedShould this be performed at the bedside?->YesFINAL REPORT EXAMINATION: AP PORTABLE CHEST RADIOGRAPH CLINICAL INDICATION:Intubated IMPRESSION: Compared with 08/24/2017. Support tube and catheter positions are unchanged. Overall aeration of the right lung has improved in the interval. Scattered opacities are again noted throughout both lungs, grossly stable. No definite evidence of new lung consolidation or pneumothorax. The cardiac and mediastinal contours are also unchanged. Signed: Aileen Horn MDReport Verified Date/Time: 08/25/2017 04:09:36 Reading Location: [address] Reading Room Electronicallysigned by: AILEEN HORN M.D. on 08/25/2017 04:09 AMBLOOD GAS, [id number] 03:26:00 Test Item Value Reference Range Interpretation Comments PH ARTERIAL (BEAKER) (test code = 7.48 7.35-7.45 H 383) PCO2 ARTERIAL (BEAKER) (test code 44 mmHg 35-45 = 384) PO2 ARTERIAL (BEAKER) (test code = 170 mmHg 80-90 H 385) O2 SATURATION ARTERIAL (BEAKER) 99.2 % 96.0-97.0 H (test code = 386) HCO3 ARTERIAL (BEAKER) (test code 32 mmol/L 21-29 H = 388) BASE EXCESS ARTERIAL (BEAKER) 7.9 mmol/L -2.0-3.0 H (test code = 387) PATIENT TEMPERATURE (BEAKER) (test 38.0 C code = 1818) FIO2 (BEAKER) (test code = 1819) 50.0 % URINALYSIS W/ [id number] 19:04:00 Test Item Value Reference Range Interpretation Comments COLOR (BEAKER) (test code = 470) Yellow CLARITY (BEAKER) (test code = Cloudy 469) SPECIFIC GRAVITY UA (BEAKER) 1.020 1.001-1.035 (test code = 468) PH UA (BEAKER) (test code = 467) 7.0 5.0-8.0 PROTEIN UA (BEAKER) (test code = 100 mg/dL Negative A 464) GLUCOSE UA (BEAKER) (test code = Negative Negative 365) KETONES UA (BEAKER) (test code = Trace Negative A 371) BILIRUBIN UA (BEAKER) (test code Positive Negative A = 462) BLOOD UA (BEAKER) (test code = Large Negative A 461) NITRITE UA (BEAKER) (test code = Negative Negative 465) LEUKOCYTE ESTERASE UA (BEAKER) Trace Negative A (test code = 466) UROBILINOGEN UA (BEAKER) (test 1.0 mg/dL 0.2-1.0 code = 463) RBC UA (BEAKER) (test code = 229 /HPF 519) WBC UA (BEAKER) (test code = 79 /HPF 520) MUCUS (BEAKER) (test code = Moderate 1574) SQUAMOUS EPITHELIAL (BEAKER) 1 /HPF (test code = 516) YEAST (BEAKER) (test code = Rare 1585) SOURCE(BEAKER) (test code = Urine, Darren 3276) TSH/FREE T4 IF [id number] 17:55:00 Test Item Value Reference Range Interpretation Comments THYROID STIMULATING HORMONE 2.31 uIU/mL 0.35-4.94 (BEAKER) (test code = 772) [id number] 17:32:00 Test Item Value Reference Range Interpretation Comments POTASSIUM (BEAKER) (test code = 3.8 meq/L 3.5-5.1 379) EEG [id number] 16:48:00For STAT EEG- after 5 PM weekdays, weekends and holidays, page 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 Reason for exam:->unresponsiveness Addendum BeginsCONTINUOUS EEG/BEDSIDE MONITORING STUDY ACC no: [id number] START DATE AND TIME: 08/23/2017 at 10:30 am STOP DATE AND TIME: 08/23/2017 at 12:14pm RECORDING HOURS ~ 2 ICD [...] EndsCONTINUOUS EEG/BEDSIDE MONITORING STUDYEEG NO: [id number] no: [id number] DATE AND TIME: 08/23/2017 at 02:30 amSTOP DATE AND TIME: 08/23/2017 at 10:30 amRECORDING HOURS ~ 8ICD 10 - G93.40CONDITION OF REPORT: CONDITION OF REPORT: This continuous Video-EEG record is run with a digital EEG machine, 22 channels, with standard International System 10-20 electrode placements, [...] the symptom(s) of interest. Compared to the baseline study, this study has not changed. Yvonne Holden, [facility] CITYlinical Neurophysiology fellowMaira Dela Cruz MDNeurophysiology/Epilepsy Attending VANCOMYCIN LEVEL, [id number] 14:26:00 Test Item Value Reference Range Interpretation Comments VANCOMYCIN TROUGH (BEAKER) (test 8.4 ug/mL 10.0-20.0 L code = 522) Before noon dose todayURINE [id number] 12:34:00 Test Item Value Reference Range Interpretation Comments CULTURE (BEAKER) (test A >100, 000 col/mL Lesly code = 1095) albicans SPUTUM CULTURE + GRAM [id number] 10:18:00 Test Item Value Reference Range Interpretation Comments CULTURE (BEAKER) (test code = 1095) Amikacin (test code = S 1) Ampicillin + Sulbactam R (test code = 6) Aztreonam (test code = S 32) Cefepime (test code = S 51) Cefoxitin (test code = S 68) Ceftazidime (test code S = 27) Ceftriaxone (test code S = 52) Ertapenem (test code = S 38) Gentamicin (test code = S 18) Levofloxacin (test code R = 22) Meropenem (test code = S 34) Nitrofurantoin (test S code = 23) Piperacillin + S Tazobactam (test code = 29) Tetracycline (test code R = 2) Tobramycin (test code = S 25) Trimethoprim + S Sulfamethoxazole (test code = 47) CULTURE (BEAKER) (test A <1+ E scherichia code = 1095) coli GRAM STAIN RESULT 1+ WBCs (BEAKER) (test code = 1123) GRAM STAIN RESULT No organisms (BEAKER) (test code = seen [id number]) No Normal respiratory thais [id number] 04:42:00 Test Item Value Reference Range Interpretation Comments PHOSPHORUS (BEAKER) (test code = 2.7 mg/dL 2.3-4.7 604) [id number] 04:42:00 Test Item Value Reference Range Interpretation Comments MAGNESIUM (BEAKER) (test code = 2.0 mg/dL 1.6-2.6 627) BASIC METABOLIC [id number] 04:42:00 Test Item Value Reference Range Interpretation Comments SODIUM (BEAKER) 136 meq/L 136-145 (test code = 381) POTASSIUM (BEAKER) 3.6 meq/L 3.5-5.1 (test code = 379) CHLORIDE (BEAKER) 99 meq/L 98-107 (test code = 382) CO2 (BEAKER) (test 27 meq/L 22-29 code = 355) BLOOD UREA NITROGEN 23 mg/dL 7-21 H (BEAKER) (test code = 354) CREATININE (BEAKER) 0.67 mg/dL 0.57-1.25 (test code = 358) GLUCOSE RANDOM 144 mg/dL 70-105 H (BEAKER) (test code = 652) CALCIUM (BEAKER) 8.4 mg/dL 8.4-10.2 (test code = 697) EGFR (BEAKER) (test 89 mL/min/1.73 ESTIMA LULY GFR IS code = 1092) sq m NOT ACCURATE CREATININE CLEARANCE IN PREDICTING GLOMERULAR FILTRATION RATE . ESTIMATED GFR I S NOT APPLICABLE FOR DIALYSIS PATIEN TS. BLOOD GAS, [id number] 04:16:00 Test Item Value Reference Range Interpretation Comments PH ARTERIAL (BEAKER) (test code = 7.48 7.35-7.45 H 383) PCO2 ARTERIAL (BEAKER) (test code 43 mmHg 35-45 = 384) PO2 ARTERIAL (BEAKER) (test code = 185 mmHg 80-90 H 385) O2 SATURATION ARTERIAL (BEAKER) 99.3 % 96.0-97.0 H (test code = 386) HCO3 ARTERIAL (BEAKER) (test code 31 mmol/L 21-29 H = 388) BASE EXCESS ARTERIAL (BEAKER) 7.1 mmol/L -2.0-3.0 H (test code = 387) PATIENT TEMPERATURE (BEAKER) (test 38.1 C code = 1818) FIO2 (BEAKER) (test code = 1819) 50.0 % RAD, CHEST, 1 VIEW, NON [id number] 04:08:00Reason for exam:- >intubatedShould this be performed at the bedside?->YesFINAL REPORT EXAMINATION: AP PORTABLE CHEST RADIOGRAPH CLINICAL INDICATION: Intubated IMPRESSION: Compared to 08/23/2017 Tip of the endotracheal tube projects over the midline near the level the clavicles approximately 5 cm superior to the keeley. Tip of the feeding tube extends below the diaphragm and inferior margin of today's study. Scattered patchy and nodular opacities are a gain noted in both lungs, stable. No evidence of new lung consolidation, pulmonary edema or pneumothorax. Cardiac and mediastinal contours are grossly stable allowing for differences in technique and positioning. In summary, no significant interval change. Signed: Aileen Horn MDReport Verified Date/Time: 08/24/2017 04:08:53 Reading Location: [address] Reading Room CBC W/PLT COUNT & AUTO [id number] 04:07:00 Test Item Value Reference Range Interpretation Comments WHITE BLOOD CELL COUNT (BEAKER) 12.2 K/ L 3.5-10.5 H (test code = 775) RED BLOOD CELL COUNT (BEAKER) 3.65 M/ L 3.93-5.22 L (test code = 761) HEMOGLOBIN (BEAKER) (test code = 10.6 GM/DL 11.2-15.7 L 410) HEMATOCRIT (BEAKER) (test code = 33.2 % 34.1-44.9 L 411) MEAN CORPUSCULAR VOLUME (BEAKER) 91.0 fL 79.4-94.8 (test code = 753) MEAN CORPUSCULAR HEMOGLOBIN 29.0 pg 25.6-32.2 (BEAKER) (test code = 751) MEAN CORPUSCULAR HEMOGLOBIN CONC 31.9 GM/DL 32.2-35.5 L (BEAKER) (test code = 752) RED CELL DISTRIBUTION WIDTH 14.1 % 11.7-14.4 (BEAKER) (test code = 412) PLATELET COUNT (BEAKER) (test 176 K/CU MM 150-450 code = 756) MEAN PLATELET VOLUME (BEAKER) 11.3 fL 9.4-12.3 (test code = 754) NUCLEATED RED BLOOD CELLS 0 /100 WBC 0-0 (BEAKER) (test code = 413) NEUTROPHILS RELATIVE PERCENT 81 % (BEAKER) (test code = 429) LYMPHOCYTES RELATIVE PERCENT 9 % (BEAKER) (test code = 430) MONOCYTES RELATIVE PERCENT 5 % (BEAKER) (test code = 431) EOSINOPHILS RELATIVE PERCENT 3 % (BEAKER) (test code = 432) BASOPHILS RELATIVE PERCENT 0 % (BEAKER) (test code = 437) NEUTROPHILS ABSOLUTE COUNT 9.80 K/ L 1.56-6.13 H (BEAKER) (test code = 670) LYMPHOCYTES ABSOLUTE COUNT 1.06 K/ L 1.18-3.74 L (BEAKER) (test code = 414) MONOCYTES ABSOLUTE COUNT (BEAKER) 0.59 K/ L 0.24-0.36 H (test code = 415) EOSINOPHILS ABSOLUTE COUNT 0.40 K/ L 0.04-0.36 H (BEAKER) (test code = 416) BASOPHILS ABSOLUTE COUNT (BEAKER) 0.03 K/ L 0.01-0.08 (test code = 417) IMMATURE GRANULOCYTES-RELATIVE 3 % 0-1 H PERCENT (BEAKER) (test code = 2801) HEPATIC FUNCTION [id number] 09:10:00 Test Item Value Reference Range Interpretation Comments TOTAL PROTEIN (BEAKER) (test code = 6.1 gm/dL 6.0-8.3 770) ALBUMIN (BEAKER) (test code = 1145) 2.7 g/dL 3.5-5.0 L BILIRUBIN TOTAL (BEAKER) (test code 0.9 mg/dL 0.2-1.2 = 377) BILIRUBIN DIRECT (BEAKER) (test 0.6 mg/dL 0.1-0.5 H code = 706) ALKALINE PHOSPHATASE (BEAKER) (test 103 U/L 40-150 code = 346) AST (SGOT) (BEAKER) (test code = 28 U/L 5-34 353) ALT (SGPT) (BEAKER) (test code = 42 U/L 6-55 347) RAD, CHEST, 1 VIEW, NON [id number] 07:41:00Reason for exam:- >intubatedShould this be performed at the bedside?->YesFINAL REPORT [...] is recommended for further evaluation. Signed: Zuhair Argueta MDReport Verified Date/Time: 08/23/2017 07:41:14 Reading Location: [address] Consult Reading Room Electronically signed by: ZUHAIR ARGUETA M.D. on 2017 07:41 AMEEG AWAKE AND [id number] 07:06:00BEDSIDE CONTINUOUS EEG STUDY -- BASELINE STUDYDATE OF EXAMINATION: 08/23/2017 EEG NO: [id number] ICD 10 - G93.40CONDITION OF REPORT: This is a digital EEG study using the standard International 10-20 systemfor placement of 22 electrodes, including eye movement leads, and an EKG lead. TECHNICAL SUMMARY: During the stimulated state, the [...] for the symptom(s) of interest. Yvonne Holden, [facility] [place] CITYlinical NeurophysiologyfellowMaira Dela Cruz MDNeurophysiology/Epilepsy Attending BLOOD GAS, [id number] 05:54:00 Test Item Value Reference Range Interpretation Comments PH ARTERIAL (BEAKER) (test code = 7.45 7.35-7.45 383) PCO2 ARTERIAL (BEAKER) (test code 46 mmHg 35-45 H = 384) PO2 ARTERIAL (BEAKER) (test code = 211 mmHg 80-90 H 385) O2 SATURATION ARTERIAL (BEAKER) 99.5 % 96.0-97.0 H (test code = 386) HCO3 ARTERIAL (BEAKER) (test code 31 mmol/L 21-29 H = 388) BASE EXCESS ARTERIAL (BEAKER) 6.8 mmol/L -2.0-3.0 H (test code = 387) PATIENT TEMPERATURE (BEAKER) (test 37.5 C code = 1818) FIO2 (BEAKER) (test code = 1819) 60.0 % CBC W/PLT COUNT & AUTO [id number] 04:01:00 Test Item Value Reference Range Interpretation Comments WHITE BLOOD CELL COUNT (BEAKER) 15.7 K/ L 3.5-10.5 H (test code = 775) RED BLOOD CELL COUNT (BEAKER) 3.90 M/ L 3.93-5.22 L (test code = 761) HEMOGLOBIN (BEAKER) (test code = 11.4 GM/DL 11.2-15.7 410) HEMATOCRIT (BEAKER) (test code = 35.3 % 34.1-44.9 411) MEAN CORPUSCULAR VOLUME (BEAKER) 90.5 fL 79.4-94.8 (test code = 753) MEAN CORPUSCULAR HEMOGLOBIN 29.2 pg 25.6-32.2 (BEAKER) (test code = 751) MEAN CORPUSCULAR HEMOGLOBIN CONC 32.3 GM/DL 32.2-35.5 (BEAKER) (test code = 752) RED CELL DISTRIBUTION WIDTH 14.3 % 11.7-14.4 (BEAKER) (test code = 412) PLATELET COUNT (BEAKER) (test 206 K/CU MM 150-450 code = 756) MEAN PLATELET VOLUME (BEAKER) 11.3 fL 9.4-12.3 (test code = 754) NUCLEATED RED BLOOD CELLS 0 /100 WBC 0-0 (BEAKER) (test code = 413) NEUTROPHILS RELATIVE PERCENT 83 % (BEAKER) (test code = 429) LYMPHOCYTES RELATIVE PERCENT 9 % (BEAKER) (test code = 430) MONOCYTES RELATIVE PERCENT 3 % (BEAKER) (test code = 431) EOSINOPHILS RELATIVE PERCENT 2 % (BEAKER) (test code = 432) BASOPHILS RELATIVE PERCENT 0 % (BEAKER) (test code = 437) NEUTROPHILS ABSOLUTE COUNT 13.10 K/ L 1.56-6.13 H (BEAKER) (test code = 670) LYMPHOCYTES ABSOLUTE COUNT 1.41 K/ L 1.18-3.74 (BEAKER) (test code = 414) MONOCYTES ABSOLUTE COUNT (BEAKER) 0.53 K/ L 0.24-0.36 H (test code = 415) EOSINOPHILS ABSOLUTE COUNT 0.35 K/ L 0.04-0.36 (BEAKER) (test code = 416) BASOPHILS ABSOLUTE COUNT (BEAKER) 0.04 K/ L 0.01-0.08 (test code = 417) IMMATURE GRANULOCYTES-RELATIVE 2 % 0-1 H PERCENT (BEAKER) (test code = 2801) [id number] 04:00:00 Test Item Value Reference Range Interpretation Comments MAGNESIUM (BEAKER) 2.5 mg/dL 1.6-2.6 Specimen slightly (test code = 627) hemolyzed [id number] 04:00:00 Test Item Value Reference Range Interpretation Comments PHOSPHORUS (BEAKER) 2.4 mg/dL 2.3-4.7 Specimen slightly (test code = 604) hemolyzed BASIC METABOLIC [id number] 04:00:00 Test Item Value Reference Range Interpretation Comments SODIUM (BEAKER) 137 meq/L 136-145 (test code = 381) POTASSIUM (BEAKER) 4.0 meq/L 3.5-5.1 Specimen slightly (test code = 379) hemolyzed CHLORIDE (BEAKER) 99 meq/L 98-107 (test code = 382) CO2 (BEAKER) (test 27 meq/L 22-29 code = 355) BLOOD UREA NITROGEN 29 mg/dL 7-21 H (BEAKER) (test code = 354) CREATININE (BEAKER) 0.71 mg/dL 0.57-1.25 Specimen slightly (test code = 358) hemolyzed GLUCOSE RANDOM 134 mg/dL 70-105 H (BEAKER) (test code = 652) CALCIUM (BEAKER) 8.7 mg/dL 8.4-10.2 (test code = 697) EGFR (BEAKER) (test 83 mL/min/1.73 ESTIMA LULY GFR IS code = 1092) sq m NOT ACCURATE CREATININE CLEARANCE IN PREDICTING GLOMERULAR FILTRATION RATE . ESTIMATED GFR I S NOT APPLICABLE FOR DIALYSIS PATIEN TS. [id number] 21:12:00 Test Item Value Reference Range Interpretation Comments PROCALCITONIN (BEAKER) (test code 4.18 ng/mL <0.05 H = 3036) SEPSIS RISK (ng/mL)Low: 0.05-0.50Intermediate: 0.51-2.00High: >=[id number] 20:45:00 Test Item Value Reference Range Interpretation Comments PHOSPHORUS (BEAKER) (test code = 2.9 mg/dL 2.3-4.7 604) [id number] 20:45:00 Test Item Value Reference Range Interpretation Comments MAGNESIUM (BEAKER) (test code = 1.8 mg/dL 1.6-2.6 627) LACTATE DEHYDROGENASE (LDH)2017-08-22 20:11:00 Test Item Value Reference Range Interpretation Comments LACTATE DEHYDROGENASE (BEAKER) (test 454 U/L 125-220 H code = 635) BASIC METABOLIC [id number] 20:11:00 Test Item Value Reference Range Interpretation Comments SODIUM (BEAKER) 137 meq/L 136-145 (test code = 381) POTASSIUM (BEAKER) 3.7 meq/L 3.5-5.1 (test code = 379) CHLORIDE (BEAKER) 98 meq/L 98-107 (test code = 382) CO2 (BEAKER) (test 29 meq/L 22-29 code = 355) BLOOD UREA NITROGEN 34 mg/dL 7-21 H (BEAKER) (test code = 354) CREATININE (BEAKER) 0.73 mg/dL 0.57-1.25 (test code = 358) GLUCOSE RANDOM 133 mg/dL 70-105 H (BEAKER) (test code = 652) CALCIUM (BEAKER) 8.9 mg/dL 8.4-10.2 (test code = 697) EGFR (BEAKER) (test 81 mL/min/1.73 ESTIMA LULY GFR IS code = 1092) sq m NOT ACCURATE CREATININE CLEARANCE IN PREDICTING GLOMERULAR FILTRATION RATE . ESTIMATED GFR I S NOT APPLICABLE FOR DIALYSIS PATIEN TS. [id number] 20:02:00 Test Item Value Reference Range Interpretation Comments AMMONIA (BEAKER) (test code = 348) 29 mol/L 18-72 URINALYSIS W/ [id number] 19:52:00 Test Item Value Reference Range Interpretation Comments COLOR (BEAKER) (test code = 470) Yellow CLARITY (BEAKER) (test code = Turbid 469) SPECIFIC GRAVITY UA (BEAKER) 1.020 1.001-1.035 (test code = 468) PH UA (BEAKER) (test code = 467) 5.5 5.0-8.0 PROTEIN UA (BEAKER) (test code = 100 mg/dL Negative A 464) GLUCOSE UA (BEAKER) (test code = Negative Negative 365) KETONES UA (BEAKER) (test code = Trace Negative A 371) BILIRUBIN UA (BEAKER) (test code Positive Negative A = 462) BLOOD UA (BEAKER) (test code = Large Negative A 461) NITRITE UA (BEAKER) (test code = Negative Negative 465) LEUKOCYTE ESTERASE UA (BEAKER) Trace Negative A (test code = 466) UROBILINOGEN UA (BEAKER) (test 2.0 mg/dL 0.2-1.0 H code = 463) RBC UA (BEAKER) (test code = 781 /HPF 519) WBC UA (BEAKER) (test code = 61 /HPF 520) MUCUS (BEAKER) (test code = Many 1574) SQUAMOUS EPITHELIAL (BEAKER) 3 /HPF (test code = 516) GRANULAR CASTS (BEAKER) (test 36 /LPF code = 515) CASTS (BEAKER) (test code = 18 /LPF 1579) YEAST (BEAKER) (test code = Few 1585) SOURCE(BEAKER) (test code = Urine, Banks 1942) RAD, CHEST, 1 VIEW, NON [id number] 19:52:00Reason for exam:- >intubatedShould this be performed at the bedside?->YesFINAL REPORT EXAMINATION: AP PORTABLE CHEST RADIOGRAPH CLINICAL INDICATION:Intubated IMPRESSION: No comparison studies are available. Tip of the endotracheal tube projects over the midline approximately 4 cm superior to the keeley. Tip of the feeding tube extends below the diaphragm and inferior margin of today's study. Scattered curvilinear and patchy opacities are noted thr oughout both lungs. The largest opacity is in [...] MDReport Verified Date/Time: 08/22/2017 19:52:23 Reading Location: [address] Reading Room CBC W/PLT COUNT & AUTO [id number] 19:46:00 Test Item Value Reference Range Interpretation Comments WHITE BLOOD CELL COUNT (BEAKER) 16.8 K/ L 3.5-10.5 H (test code = 775) RED BLOOD CELL COUNT (BEAKER) 4.10 M/ L 3.93-5.22 (test code = 761) HEMOGLOBIN (BEAKER) (test code = 12.0 GM/DL 11.2-15.7 410) HEMATOCRIT (BEAKER) (test code = 37.1 % 34.1-44.9 411) MEAN CORPUSCULAR VOLUME (BEAKER) 90.5 fL 79.4-94.8 (test code = 753) MEAN CORPUSCULAR HEMOGLOBIN 29.3 pg 25.6-32.2 (BEAKER) (test code = 751) MEAN CORPUSCULAR HEMOGLOBIN CONC 32.3 GM/DL 32.2-35.5 (BEAKER) (test code = 752) RED CELL DISTRIBUTION WIDTH 14.1 % 11.7-14.4 (BEAKER) (test code = 412) PLATELET COUNT (BEAKER) (test 236 K/CU MM 150-450 code = 756) MEAN PLATELET VOLUME (BEAKER) 11.1 fL 9.4-12.3 (test code = 754) NUCLEATED RED BLOOD CELLS 0 /100 WBC 0-0 (BEAKER) (test code = 413) NEUTROPHILS RELATIVE PERCENT 79 % (BEAKER) (test code = 429) LYMPHOCYTES RELATIVE PERCENT 13 % (BEAKER) (test code = 430) MONOCYTES RELATIVE PERCENT 4 % (BEAKER) (test code = 431) EOSINOPHILS RELATIVE PERCENT 2 % (BEAKER) (test code = 432) BASOPHILS RELATIVE PERCENT 0 % (BEAKER) (test code = 437) NEUTROPHILS ABSOLUTE COUNT 13.29 K/ L 1.56-6.13 H (BEAKER) (test code = 670) LYMPHOCYTES ABSOLUTE COUNT 2.16 K/ L 1.18-3.74 (BEAKER) (test code = 414) MONOCYTES ABSOLUTE COUNT (BEAKER) 0.74 K/ L 0.24-0.36 H (test code = 415) EOSINOPHILS ABSOLUTE COUNT 0.32 K/ L 0.04-0.36 (BEAKER) (test code = 416) BASOPHILS ABSOLUTE COUNT (BEAKER) 0.05 K/ L 0.01-0.08 (test code = 417) IMMATURE GRANULOCYTES-RELATIVE 2 % 0-1 H PERCENT (BEAKER) (test code = 2801) BLOOD GAS, [id number] 19:31:00 Test Item Value Reference Range Interpretation Comments PH ARTERIAL (BEAKER) (test code = 7.46 7.35-7.45 H 383) PCO2 ARTERIAL (BEAKER) (test code 46 mmHg 35-45 H = 384) PO2 ARTERIAL (BEAKER) (test code = 158 mmHg 80-90 H 385) O2 SATURATION ARTERIAL (BEAKER) 99.1 % 96.0-97.0 H (test code = 386) HCO3 ARTERIAL (BEAKER) (test code 32 mmol/L 21-29 H = 388) BASE EXCESS ARTERIAL (BEAKER) 7.4 mmol/L -2.0-3.0 H (test code = 387) PATIENT TEMPERATURE (BEAKER) (test 37.2 C code = 1818) FIO2 (BEAKER) (test code = 1819) 60.0 %
[2020-08-26 11:43] LABS: Absolute Lymphocytes (CBC) 1.5 K/uL (0.7-4.9); Basophils % 0.6 % (0-1.3); Hematocrit 45.5 % (36.0-45.0); Lymphocytes % 21.3 % (15.3-44.8); MPV 10.5 fL (7.6-11.3); RBC Red Blood Cell Count 4.82 M/uL (3.86-4.86)
[2020-08-26] MEDS ORDERED: NA CHLORIDE 0.9% 1,000 ML ONE (11:43)
--- NOTE | 2020-08-26 11:46 | RAD REPORT ---
EXAM DESCRIPTION: RAD - Chest Single View - 08/26/2020 11:39 am CLINICAL HISTORY: dizziness Chest pain. COMPARISON: Chest Single View dated 08/22/2017; Chest Single View dated 08/21/2017; Chest Single View da anastacia 08/20/2017; Abdomen 1 View (KUB) dated 08/20/2017 FINDINGS: Portable technique limits examination quality. The lungs are grossly clear. The heart is normal in size. No displaced fractures.Small hardware plate is present lower cervical spine. IMPRESSION: No acute intrathoracic process suspected.
[2020-08-26 11:48] LABS: Protime INR 1.03
[2020-08-26 12:07] LABS: ALT/SGPT 31 U/L (12-78); Albumin 3.4 g/dL (3.4-5.0); Alkaline Phosphatase 98 U/L (45-117); BUN Blood Urea Nitrogen 12 mg/dL (7-18); Bicarbonate 27 mmol/L (21-32); Bilirubin Direct 0.1 mg/dL (0-0.2); Bilirubin Total 0.3 mg/dL (0.2-1.0); Glucose Level 130 mg/dL (74-106); NT PRO-BNP 103 pg/mL (<125); Protein, Total 7.4 g/dL (6.4-8.2); Sodium Level 140 mmol/L (136-145); Troponin (Emerg Dept Use Only) < 0.02 ng/mL (0.0-0.045)
[2020-08-26 12:08] LABS: AST/SGOT 26 U/L (15-37); Magnesium 2.3 mg/dL (1.8-2.4); Potassium 3.9 mmol/L (3.5-5.1)
[2020-08-26 12:10] LABS: Urine Blood NEGATIVE (NEG); Urine Glucose NEGATIVE (NEG); Urine Protein NEGATIVE (NEG); Urine Specific Gravity 1.025 (1.005-1.030); Urine pH 5.5 (5.0-7.0)
[2020-08-26 12:19] LABS: Urine Bacteria <20 /HPF (<20); Urine Mucus LIGHT /HPF (NONE SEEN); Urine RBC NONE SEEN /HPF (NONE SEEN)
--- NOTE | 2020-08-26 13:27 | EDPHYS ---
Physician Documentation [facility] Name: Juanpablo Gorman Age: 65 yrs Sex: Female : 1955 Arrival Date: 08/26/2020 Time: 11:11 Bed 17 Private MD: ED Physician Nathaniel Hough HPI: 08/26 11:29 This 65 yrs old Female presents to ER via EMS with complaints of Nausea. pm1 11:29 The patient presents to the emergency department with nausea, and dizziness. Onset: The pm1 symptoms/episode began/occurred today. The symptoms are aggravated by nothing. The symptoms are alleviated by nothing. Associated signs and symptoms: Pertinent negatives: abdominal pain, constipation, diarrhea, dysuria, fever, chest pain, shortness of breath, headache, injury. Severity of symptoms: in the emergency department the symptoms have resolved. The patient has experienced similar episodes in the past, multiple times, usually when she has these symptoms she has a urinary tract infection or is dehydrated. It is unknown whether or not the patient has recently seen a physician. . 11:29 Patient was taking a shower in her shower chair and then she started feeling nauseated pm1 and dizzy. Her family gave her a Zofran but she was not able to keep it down. Patient reports similar symptoms in the past and they were related to either a UTI or dehydration. No headache, weakness, shortness of breath, chest pain, abdominal pain. Historical: - Allergies: 11:20 Hydrocodone-Acetaminophen; tw2 11:20 Cefuroxime Sodium; tw2 11:20 Lyrica; tw2 11:20 Morphine; tw2 11:20 Topamax; tw2 - Home Meds: 11:20 red yeast rice 600 mg Oral cap 2 cap daily [Active]; pantoprazole 40 mg Oral TbEC 1 tab tw2 once daily [Active]; propranolol 10 mg Oral tab 1 tab daily [Active]; gabapentin 300 mg Oral cap 2 caps 3 times per day [Active]; duloxetine 60 mg Oral cpDR 1 cap twice a day [Active]; Cerefolin NAC (algal oil) 6 mg-600 mg- 2 mg-90.314 mg Oral tab daily [Active]; carbidopa-levodopa 25-100 mg Oral tab 1 tab 3 times per day [Active]; amitriptyline 25 mg Oral tab 75 mg nightly [Active]; - 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 - Social history:: Smoking status: . ROS: 12:03 Constitutional: Negative for fever, chills, and weight loss, Neck: Negative for injury, pm1 pain, and swelling, Cardiovascular: Negative for chest pain, palpitations, and edema, Respiratory: Negative for shortness of breath, cough, wheezing, and pleuritic chest pain. 12:03 Back: Negative for injury and pain, : Negative for injury, bleeding, discharge, and swelling, MS/Extremity: Negative for injury and deformity, Skin: Negative for injury, rash, and discoloration. 12:03 Abdomen/GI: Positive for nausea and vomiting, Negative for abdominal pain, diarrhea, constipation. 12:03 Neuro: Positive for dizziness, Negative for headache, numbness, syncope, near syncope, tingling, weakness. Exam: 12:03 Constitutional: This is a well developed, well nourished patient who is awake, alert, pm1 and in no acute distress. Head/Face: Normocephalic, atraumatic. 12:03 Back: No spinal tenderness. No costovertebral tenderness. Full range of motion. Skin: Warm, dry with normal turgor. Normal color with no rashes, no lesions, and no evidence of cellulitis. MS/ Extremity: Pulses equal, no cyanosis. Neurovascular intact. Full, normal range of motion. 12:03 Cardiovascular: Exam negative for acute changes, Rate: normal, Rhythm: regular, Pulses: no pulse deficits are appreciated, Edema: is not appreciated. 12:03 Respiratory: Exam negative for acute changes, respiratory distress, shortness of breath, Breath sounds: are clear throughout. 12:03 Abdomen/GI: Exam negative for acute changes, Inspection: abdomen appears normal, Palpation: abdomen is soft and non-tender, in all quadrants. 12:03 Neuro: Exam negative for acute changes, Orientation: is normal, Mentation: is normal. Vital Signs: 11:11 Pulse 88; Resp 16; Temp 98.6(TE); Pulse Ox 96% on R/A; tw2 11:17 BP 97 / 78; tw2 11:51 BP 96 / 82 Sitting; Pulse 89; Resp 16; Pulse Ox 94% on R/A; mh5 11:51 BP 91 / 74 Supine; Pulse 88; Resp 16; Pulse Ox 96% on R/A; mh5 12:30 BP 126 / 82; Pulse 82; Resp 17; Pulse Ox 100% on R/A; tw2 13:36 BP 122 / 77; Pulse 80; Resp 17; Pulse Ox 99% on R/A; tw2 14:22 BP 105 / 68; Pulse 89; Resp 17; Pulse Ox 97% on R/A; tw2 MDM: 11:16 Patient medically screened. pm1 13:26 Data reviewed: vital signs. Data interpreted: Pulse oximetry: on room air is 96 %. pm1 Interpretation: normal. Counseling: I had a detailed discussion with the patient and/or guardian regarding: the historical points, exam findings, and any diagnostic results supporting the discharge/admit diagnosis, lab results, radiology results, the need for outpatient follow up, to return to the emergency department if symptoms worsen or persist or if there are any questions or concerns that arise at home. 08/26 11:17 Order name: Basic Metabolic Panel; Complete Time: 12:12 pm08/26 11:17 Order name: CBC with Diff; Complete Time: 11:49 pm08/26 11:17 Order name: LFT's; Complete Time: 12:12 pm08/26 11:17 Order name: Magnesium; Complete Time: 12:12 pm08/26 11:17 Order name: NT PRO-BNP; Complete Time: 12:12 pm08/26 11:17 Order name: PT-INR; Complete Time: 12:12 pm08/26 11:17 Order name: Troponin (emerg Dept Use Only); Complete Time: 12:12 pm08/26 11:17 Order name: XRAY Chest (1 view); Complete Time: 11:49 pm08/26 11:17 Order name: EKG; Complete Time: 11:18 pm08/26 11:17 Order name: Cardiac monitoring; Complete Time: 11:28 pm08/26 11:17 Order name: EKG - Nurse/Tech; Complete Time: 11:28 pm08/26 11:17 Order name: Urine Microscopic Only; Complete Time: 12:31 pm08/26 11:57 Order name: Urine Dipstick--Ancillary (enter results); Complete Time: 12:12 em1 08/26 11:17 Order name: IV Saline Lock; Complete Time: 11:28 pm1 08/26 11:17 Order name: Labs collected and sent; Complete Time: 11:28 pm1 08/26 11:17 Order name: O2 Per Protocol; Complete Time: 11:57 pm1 08/26 11:17 Order name: O2 Sat Monitoring; Complete Time: 11:57 pm1 08/26 11:17 Order name: Urine Dipstick-Ancillary (obtain specimen); Complete Time: 11:51 pm1 08/26 11:17 Order name: Straight Cath - Urine; Complete Time: 11:48 pm1 08/26 11:17 Order name: Orthostatic Blood Pressure; Complete Time: 11:48 pm1 Administered Medications: 11:56 Drug: NS 0.9% 1000 ml Route: IV; Rate: 1000 ml; Site: right antecubital; tw2 13:34 Follow up: Response: No adverse reaction; IV Status: Completed infusion; IV Intake: tw2 1000ml Disposition: 17:19 Co-signature as Attending Physician, Nathaniel Hough MD. rn Disposition: 08/26/20 13:26 Discharged to Home. Impression: Dehydration. - Condition is Stable. - Discharge Instructions: Dehydration, Adult, Rehydration, Adult. - Prescriptions for Zofran ODT 4 mg Oral tablet,disintegrating - place 1 tablet by TRANSLINGUAL route every 8 hours As needed; 12 tablet. - Medication Reconciliation Form, Thank You Letter, Antibiotic Education, Prescription Opioid Use form. - Follow up: Emergency Department; When: As needed; Reason: Worsening of condition. Follow up: Private Physician; When: 2 - 3 days; Reason: Recheck today's complaints, Continuance of care, Re-evaluation by your physician. - Problem is new. - Symptoms have improved. Signatures: Dispatcher [employer] EDMS Nathaniel Hough MD MD rn Marinas, Patrick, IVAN TELEVISION CAMERA OPERATOR pm1 Solange Myers RN RN tw2 Corrections: (The following items were deleted from the chart) 14:33 13:26 08/26/2020 13:26 Discharged to Home. Impression: Dehydration. Condition is tw2 Stable. Forms are Medication Reconciliation Form, Thank You Letter, Antibiotic Education, Prescription Opioid Use. Follow up: Emergency Department; When: As needed; Reason: Worsening of condition. Follow up: Private Physician; When: 2 - 3 days; Reason: Recheck today's complaints, Continuance of care, Re-evaluation by your physician. Problem is new. Symptoms have improved. pm1 15:45 11:29 Associated signs and symptoms: Pertinent negatives: diarrhea, dysuria, fever, pm1 vomiting, chest pain, shortness of breath, headache, injury, pm1
--- NOTE | 2020-08-26 13:27 | ER ---
Nurse's Notes [facility] Name: Juanpablo Gorman Age: 65 yrs Sex: Female : 1955 Arrival Date: 08/26/2020 Time: 11:11 Bed 17 Private MD: Diagnosis: Dehydration Presentation: 08/26 11:11 Chief complaint: EMS states: pt from home has a hx of dystonia, and stiff person tw2 syndrome, lives home with family, was in shower this morning and started feeling nausea she did vomit, family gave her zofran, she did vomit after she was given it, we started a line but didn't give any medication, pts family states this behavior is normal for her but that last time this happened she had a kidney infection. Coronavirus screen: nausea, Client presents with at least one sign or symptom that may indicate coronavirus-19. Standard/surgical mask placed on the client. Provider contacted for isolation considerations. Ebola Screen: Patient denies travel to an Ebola-affected area in the 21 days before illness onset. Risk Assessment: Do you want to hurt yourself or someone else? Patient reports no desire to harm self or others. Note provider at bedside at this time. Onset of symptoms was August 26, 2020. Care prior to arrival: IV initiated. 20 GA, in the left antecubital area. 11:11 Method Of Arrival: EMS: [facility] tw2 11:11 Acuity: AMY 3 tw2 11:18 Initial Sepsis Screen: Does the patient meet any 2 criteria? No. Patient's initial tw2 sepsis screen is negative. Does the patient have a suspected source of infection? Yes: Catheter related infection (Banks/dialysis/PICC/central line) No. Patient's initial sepsis screen is negative. Historical: - Allergies: 11:20 Hydrocodone-Acetaminophen; tw2 11:20 Cefuroxime Sodium; tw2 11:20 Lyrica; tw2 11:20 Morphine; tw2 11:20 Topamax; tw2 - Home Meds: 11:20 red yeast rice 600 mg Oral cap 2 cap daily [Active]; pantoprazole 40 mg Oral TbEC 1 tab tw2 once daily [Active]; propranolol 10 mg Oral tab 1 tab daily [Active]; gabapentin 300 mg Oral cap 2 caps 3 times per day [Active]; duloxetine 60 mg Oral cpDR 1 cap twice a day [Active]; Cerefolin NAC (algal oil) 6 mg-600 mg- 2 mg-90.314 mg Oral tab daily [Active]; carbidopa-levodopa 25-100 mg Oral tab 1 tab 3 times per day [Active]; amitriptyline 25 mg Oral tab 75 mg nightly [Active]; - 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 - Social history:: Smoking status: . Screenin:58 Abuse screen: Denies threats or abuse. Nutritional screening: No deficits noted. tw2 Tuberculosis screening: No symptoms or risk factors identified. Fall Risk None identified. Assessment: 11:16 General: Appears in no apparent distress. Behavior is calm, cooperative, appropriate tw2 for age. Pain: Denies pain. Neuro: Level of Consciousness is awake, alert, obeys commands, Oriented to person, place, time, situation. Cardiovascular: Patient's skin is warm and dry. Respiratory: Airway is patent Respiratory effort is even, unlabored, Respiratory pattern is regular, symmetrical. GI: Abdomen is flat, non-distended, Reports nausea. : No signs and/or symptoms were reported regarding the genitourinary system. Reports incontinence, 'that's my normal, i wear a brief". EENT: No signs and/or symptoms were reported regarding the EENT system. Derm: No signs and/or symptoms reported regarding the dermatologic system. Musculoskeletal: Range of motion: limited in body dystonia. 11:32 Reassessment: xray at bedside at this time. tw2 12:30 Reassessment: Patient appears in no apparent distress at this time. No changes from tw2 previously documented assessment. Patient and/or family updated on plan of care and expected duration. Pain level reassessed. Patient is alert, oriented x 3, equal unlabored respirations, skin warm/dry/pink. 13:36 Reassessment: Patient appears in no apparent distress at this time. No changes from tw2 previously documented assessment. Patient and/or family updated on plan of care and expected duration. Pain level reassessed. Patient is alert, oriented x 3, equal unlabored respirations, skin warm/dry/pink. 14:33 Reassessment: Patient appears in no apparent distress at this time. No changes from tw2 previously documented assessment. Patient and/or family updated on plan of care and expected duration. Pain level reassessed. Patient is alert, oriented x 3, equal unlabored respirations, skin warm/dry/pink. Vital Signs: 11:11 Pulse 88; Resp 16; Temp 98.6(TE); Pulse Ox 96% on R/A; tw2 11:17 BP 97 / 78; tw2 11:51 BP 96 / 82 Sitting; Pulse 89; Resp 16; Pulse Ox 94% on R/A; mh5 11:51 BP 91 / 74 Supine; Pulse 88; Resp 16; Pulse Ox 96% on R/A; mh5 12:30 BP 126 / 82; Pulse 82; Resp 17; Pulse Ox 100% on R/A; tw2 13:36 BP 122 / 77; Pulse 80; Resp 17; Pulse Ox 99% on R/A; tw2 14:22 BP 105 / 68; Pulse 89; Resp 17; Pulse Ox 97% on R/A; tw2 ED Course: 11:11 Patient arrived in ED. tw2 11:11 Patient has correct armband on for positive identification. Placed in gown. Bed in low mh5 position. Call light in reach. Side rails up X2. Pulse ox on. NIBP on. 11:16 Ethan Garza NP is PHCP. pm1 11:16 Nathaniel Hough MD is Attending Physician. pm1 11:17 Triage completed. tw2 11:28 Maintain EMS IV. Dressing intact. Good blood return noted. Site clean \\T\\ dry. Gauge \\T\\ tw 2 site: 20 g LEFT ac. 11:31 Solange Myers, ALHAJI is Primary Nurse. tw2 11:38 XRAY Chest (1 view) In Process Unspecified. EDMS 11:44 Straight cath inserted, using sterile technique, 18 Fr. Specimen obtained. Returned tw2 marvin urine. Patient tolerated well. Sidra, Tech served as earth moving machine operator. 11:48 Urine Microscopic Only Sent. 5 11:54 Urine collected: straight cath specimen, clear, EKG done, by ED staff, reviewed by irvin Hough MD. 12:01 Arm band placed on. tw2 12:04 Report given to ALHAJI Butts. tw2 13:36 No provider procedures requiring assistance completed. tw2 13:37 Awaiting transportation, Awaiting: prior to discharge, pt is bedbound. tw2 14:33 IV discontinued, intact, bleeding controlled, No redness/swelling at site. Pressure tw2 dressing applied. Administered Medications: 11:56 Drug: NS 0.9% 1000 ml Route: IV; Rate: 1000 ml; Site: right antecubital; tw2 13:34 Follow up: Response: No adverse reaction; IV Status: Completed infusion; IV Intake: tw2 1000ml Intake: 13:34 IV: 1000ml; Total: 1000ml. tw2 Outcome: 13:26 Discharge ordered by MD. pm1 14:32 Discharged to home via wheelchair, with family. tw2 14:32 Condition: stable 14:32 Discharge instructions given to patient, family, Instructed on discharge instructions, follow up and referral plans. medication usage, Demonstrated understanding of instructions, follow-up care, medications, Prescriptions given X 1. 14:33 Patient left the ED. tw2 Signatures: Dispatcher [employer] EDEthan Montoya NP HOT [employer] LINER pm1 Solange Myers RN RN tw2 [facility]
[2020-08-26 14:38] VITALS: TEMP 98.6
[2020-08-26 14:44] VITALS: BP 105/68; O2SAT 97
== END 2020-08-26 14:33 | disposition home or self-care (01) ==
LOC: ER 11:08
DX: E86.0 Dehydration (principal); Z88.5 Allergy status to narcotic agent; Z88.8 Allergy status to other drugs, medicaments and biological substances
CPT/HCPCS: 96361; 93005; 85025; 80048; 36415; 83735; 85610; 80076; 84484; 83880; 71045; 51702; 96360; 99284; J7030; 81003; 81015